=== PATIENT | female | born 1935 | race Caucasian/White ===

== ENCOUNTER → 2018-01-17 08:20 | Outpatient (CLI) | payer MEDICARE, OTHER, SELFPAY ==
[2018-01-17 09:54] LABS: Add Manual Diff / Slide Review NO; Basophils Percent Auto 0.9 % (0-2); Eosinophils Percent Auto 9.4 % (2-4); Hematocrit 38.3 % (36-46); Hemoglobin 12.8 g/dL (12.0-16.0); Lymphocytes Percent Auto 22.2 % (25-40); Mean Corpuscular HGB Conc 33.5 % (30-36); Mean Corpuscular Hemoglobin 27.8 PG (26-34); Monocytes Percent Auto 9.2 % (3-14); Neutrophils Absolute Auto 5300 /uL (3000-5900); Neutrophils Percent Auto 58.3 % (50-75); Platelet Count 311 X10^3/uL (150-400); Red Blood Cell Count 4.61 X10^6/uL (4.0-5.2); Red Cell Distribution Width 16.9 % (11.6-14.8); White Blood Cell Count 9.2 X10^3/uL (4.5-11.0)
[2018-01-17 10:16] LABS: Alanine Aminotransferase 24 IU/L (9-52); Albumin 4.2 g/dL (3.5-5.0); Albumin Globulin Ratio 1.6 (1.0-2.8); Alkaline Phosphatase 45 U/L (38-126); Aspartate Aminotransferase 20 IU/L (14-36); BUN Creatinine Ratio 24.5 (6-22); Bilirubin Total 0.5 mg/dL (0.2-1.3); Blood Urea Nitrogen 27 mg/dL (7-17); Calcium 10.3 mg/dL (8.4-10.2); Carbon Dioxide 31 mmol/L (22-32); Chloride 101 mmol/L (98-107); Cholesterol 165 mg/dL (140-199); Estimated Glomerular Filt Rate 47.8 mL/min (>60); Globulin 2.7 g/dL (1.7-4.1); Glucose 90 mg/dL (80-110); HDL Cholesterol 74 mg/dL (40-60); HEMOLYSIS < 15 (0-50); LDL Cholesterol Calculated 72 mg/dL (<100); Potassium 4.8 mmol/L (3.4-5.1); Sodium 142 mmol/L (137-145); Total Protein 6.9 g/dL (6.3-8.2); Triglycerides 94 mg/dL (35-150)
== END ==
PROVIDERS: PCP Family Medicine; Visit Provider Family Medicine
DX: I10 Essential (primary) hypertension (principal); E78.2 Mixed hyperlipidemia
CPT/HCPCS: 36415; 80053; 80061; 85025

== ENCOUNTER 2018-04-06 13:45 | Outpatient (RCR) | payer MEDICARE, OTHER, SELFPAY ==
--- NOTE | 2017-12-15 10:05 | PT.OTN ---
Current Diagnoses Pain in right knee (12/15/17) Difficulty in walking, not elsewhere classified (12/15/17) Weakness (12/15/17) Presence of right artificial knee joint (12/15/17) On December 14, 2017 our therapy services consisting of Speech, Occupational, and Physical therapy transitioned from [employer] electronic documentation system to a new [employer] electronic system. All documentation prior to December 14 can be found under [employer] saved data. From December 14 forward, all medical record documentation will be in [email or web address].
--- NOTE | 2017-12-17 15:44 | PT.OTN ---
Current Diagnoses Pain in right knee (12/17/17) Difficulty in walking, not elsewhere classified (12/17/17) Weakness (12/17/17) Presence of right artificial knee joint (12/17/17) Physical Therapy Treatment Note PT-OP-A Visit Information Start: 12/15/17 10:15 Freq: Status: Active Protocol: Activity Type Activity Date Activity User E-Sign Co-Sign Detail Recorded Client Recorded Date Recorded By Document 12/17/17 11:20 GGD [email or web address] 12/17/17 15:44 GGD 12/17/17 11:20 Out-Patient Physical Therapy Visit Information [Visit Information] -Visit Type Treatment Note -Visit Start Time 11:20 -Visit Stop Time 12:00 -Total Visit Minutes 40 -Visit Number 18; 2/10 g-code -Number of NUTRITION COUNSELOR Visits 2 [Evaluation Information] -Evaluation Date 09/02/17 PT-OP-C Subjective Start: 12/15/17 10:15 Freq: Status: Active Protocol: Activity Type Activity Date Activity User E-Sign Co-Sign Detail Recorded Client Recorded Date Recorded By Document 12/17/17 11:20 GGD [email or web address] 12/17/17 15:44 GGD 12/17/17 11:20 OP-PT Subjective [Patient Comments] -Patient Comments Pt states that balance is improving, her knee aches at times. PT-OP-Q Treatments Start: 12/15/17 10:15 Freq: Status: Active Protocol: Activity Type Activity Date Activity User E-Sign Co-Sign Detail Recorded Client Recorded Date Recorded By Document 12/17/17 11:20 GGD [email or web address] 12/17/17 15:44 GGD 12/17/17 11:20 Cardio Equipment [Recumbent Stepper (Sci-Fit)] -Duration (Minutes) 10 -Resistance 2.5 Gym Equipment [Shuttle Recovery] Unilateral Squats -Resistance L 62#, R 503 -Shuttle Recovery Platform Stable -Reps/Time L 20, R 2 x10 Bilateral Squats -Resistance 87 -Shuttle Recovery Platform Stable -Reps/Time 20 [Shuttle Rebound] 1 -Exercise Details Red -Reps/Duration 8 -Comments Wide base, staggered stance Manual Therapy Treatment [Taping] 1 -Body Location right knee -Treatment Focus 2 Y strips for stabilization -Type of Tape Kinesio Tape PT-OP-T Assessment and Plan Start: 12/15/17 10:15 Freq: Status: Active Protocol: Activity Type Activity Date Activity User E-Sign Co-Sign Detail Recorded Client Recorded Date Recorded By Document 12/17/17 11:20 GGD [email or web address] 12/17/17 15:44 GGD 12/17/17 11:20 Physical Therapy Assessment [Assessment Summary] -Assessment Pt fatigued quickly with strengthening and balance. She been walking with 4WW and feels more stable. Physical Therapy Plan [Frequency and Duration] -Frequency of Treatment 2x/Week -Duration of Treatment 2 months -Plan of Care Start Date 12/01/17 -Plan of Care End Date 01/30/18 [Next Visit Focus/Plan] -Next Visit Plan Progress under current plan. Increase LE strengthening.
--- NOTE | 2017-12-24 12:28 | PT.OTN ---
Current Diagnoses Pain in right knee (12/24/17) Difficulty in walking, not elsewhere classified (12/24/17) Weakness (12/24/17) Presence of right artificial knee joint (12/24/17) Physical Therapy Treatment Note PT-OP-A Visit Information Start: 12/15/17 10:15 Freq: Status: Active Protocol: Document 12/24/17 12:00 GGD (Rec: 12/24/17 12:27 GGD [email or web address]) Out-Patient Physical Therapy Visit Information Visit Information Visit Type Treatment Note Visit Start Time 11:20 Visit Stop Time 12:00 Total Visit Minutes 40 Visit Number 19; 3/10 g-code Number of BELT BUILDER Visits 3 Evaluation Information Evaluation Date 09/02/17 PT-OP-C Subjective Start: 12/15/17 10:15 Freq: Status: Active Protocol: Document 12/24/17 12:00 GGD (Rec: 12/24/17 12:27 GGD [email or web address]) OP-PT Subjective Patient Comments Patient Comments Pt states she tired, that she has not had energy all week. She doesn't want to do any balance today. PT-OP-Q Treatments Start: 12/15/17 10:15 Freq: Status: Active Protocol: Document 12/24/17 12:00 GGD (Rec: 12/24/17 12:27 GGD [email or web address]) Cardio Equipment Recumbent Stepper (Sci-Fit) Duration (Minutes) 10 Resistance 2.5 Gym Equipment Shuttle Recovery Unilateral Squats Resistance L 62#, R 50# Shuttle Recovery Platform Stable Reps/Time L 20, R 2 x10 Bilateral Squats Resistance 87 Shuttle Recovery Platform Stable Reps/Time 20 Manual Therapy Treatment Taping 1 Body Location right knee Treatment Focus 2 Y strips for stabilization Type of Tape Kinesio Tape PT-OP-R Modalities Start: 12/15/17 10:15 Freq: Status: Active Protocol: Document 12/24/17 12:00 GGD (Rec: 12/24/17 12:28 GGD [email or web address]) Hot Pack/Cold Pack Treatment Cold Pack Location right knee Patient Position Hooklying Patient Tolerance Good PT-OP-T Assessment and Plan Start: 12/15/17 10:15 Freq: Status: Active Protocol: Document 12/24/17 12:00 GGD (Rec: 12/24/17 12:27 GGD [email or web address]) Physical Therapy Assessment Assessment Summary Assessment Pt had improved tolerance to shuttle. Pt refused all balance activities. Treatment was shorten due to pt late. Physical Therapy Plan Frequency and Duration Frequency of Treatment 2x/Week Duration of Treatment 2 months Plan of Care Start Date 12/01/17 Plan of Care End Date 01/30/18 Next Visit Focus/Plan Next Visit Plan Progress under current plan. Increase LE strengthening and balance.
--- NOTE | 2018-01-04 13:58 | PT.OTN ---
Current Diagnoses Pain in left shoulder (01/04/18) Pain in right knee (01/04/18) Difficulty in walking, not elsewhere classified (01/04/18) Weakness (01/04/18) Presence of right artificial knee joint (01/04/18) Physical Therapy Treatment Note PT-OP-A Visit Information Start: 12/15/17 10:15 Freq: Status: Active Protocol: Document 01/04/18 11:21 SAK (Rec: 01/04/18 13:33 [facility] [id number]) Out-Patient Physical Therapy Visit Information Visit Information Visit Type Treatment Note Visit Start Time 11:21 Visit Stop Time 12:01 Total Visit Minutes 40 Visit Number 19 Number of MANAGEMENT ASSISTANT Visits 0 Evaluation Information Evaluation Date 09/02/17 PT-OP-B Current Condition Start: 01/04/18 11:27 Freq: Status: Active Protocol: Document 01/04/18 11:27 SAK (Rec: 01/04/18 12:03 [facility] [id number]) Current Condition History of Current Condition Onset Date chronic History of Current Condition injection in left shoulder yesterday. Long history bilateral shoulder pain Prior Treatments and Tests x-rays show arthritis PT-OP-C Subjective Start: 12/15/17 10:15 Freq: Status: Active Protocol: Document 01/04/18 11:21 SAK (Rec: 01/04/18 11:27 [facility] [id number]) OP-PT Subjective Patient Comments Patient Comments Patient reports some medication changes have caused her to not feel well; off estrogen, using topical Voltaren for right knee, increase Gabapentin, started Cimbalta, new medication for breathing. Had injection left shoulder yesterday. Has new prescription for evaluation and treatment of impingement bilateral shoulders though patient reports left shoulder much worse OP-PT Pain Assessment Pain Assessment Grid Paper Pain Assessment Grid Completed Yes Location Left Upper Lateral Shoulder Pain Location Details chronic Intensity 4 Description Aching Pinching Shooting Frequency Constant Pain Aggravating Factors Position ADL's Activity Lifting Pain Alleviating Factors None Home Pain Medication Use Pain Medications Used Yes Pain Behaviors Pain Behaviors Facial Grimacing Guarding Wincing Comments Pain Comments pain is chronic, but recent left shoulder worsening with no known reason PT-OP-F Manual Assessment Start: 01/04/18 13:24 Freq: Status: Active Protocol: Document 01/04/18 11:21 SAK (Rec: 01/04/18 13:40 [facility] [id number]) Manual Assessments Soft Tissue Assessment Soft Tissue Mobility Assessment Increased muscle bulk and tightness left upper trap and levator scapulae Joint Mobility Assessment Joint Mobility Assessment decreased posterior and inferior glide left GH joint PT-OP-K Range of Motion Start: 01/04/18 13:24 Freq: Status: Active Protocol: Document 01/04/18 11:21 [facility] (Rec: 01/04/18 13:43 [facility] [id number]) Cervical Spine Range of Motion Cervical Spine Active Comments mod decrease all c/s motions Shoulder Goniometric Range of Motion Shoulder Measured in Degrees Right Active Shoulder ROM WFL Yes Testing Position Sitting Left Active Shoulder ROM WFL No Testing Position Sitting Flexion 127 Extension 15 Abduction 112 External Rotation at 45 degrees 22 Abduction Internal Rotation Behind Back (text) T8 Shoulder ROM Limitations Shoulder ROM Limitations Bony Restriction Pain PT-OP-L Special Tests Start: 01/04/18 13:24 Freq: Status: Active Protocol: Document 01/04/18 11:21 [facility] (Rec: 01/04/18 13:44 [facility] [id number]) Special Tests Shoulder Special Tests Elevation Impingement Test Results positive left Belly Press Test Results negative PT-OP-M Strength Start: 01/04/18 13:24 Freq: Status: Active Protocol: Document 01/04/18 11:21 [facility] (Rec: 01/04/18 13:45 [facility] [id number]) Shoulder Strength Shoulder Manual Muscle Testing Left Flexion 3- Fair- Extension 3+ Fair+ External Rotation 3+ Fair+ Internal Rotation 4- Good- Reason Not Measured Pain Right Flexion 4+ Good+ Extension 4+ Good+ Abduction (C5) 4+ Good+ External Rotation 4 Good Internal Rotation 4+ Good+ PT-OP-Q Treatments Start: 12/15/17 10:15 Freq: Status: Active Protocol: Document 01/04/18 11:21 [facility] (Rec: 01/04/18 13:48 [facility] [id number]) Cardio Equipment Recumbent Stepper (Sci-Fit) Duration (Minutes) 10 Resistance 2.5 Therapeutic Exercises Supine Exercises 1 Supine Exercise Name SAQ Equipment Used bolster Reps/Minutes 10x Other Exercises 1 Other Exercise Name row, shld ext, shld ER Resistance L2 TB Reps/Minutes 5x Comments verbal and manual cues Manual Therapy Treatment Manual Techniques 1 Type left shoulder assessment Comments ROM, strength, joint mobility Self-Care/Home Management Treatment Education Patient Education Home Exercise Program Activities Self-Care/Home Management Activities emphasis on posture PT-OP-R Modalities Start: 12/15/17 10:15 Freq: Status: Active Protocol: Document 12/24/17 12:00 GGD (Rec: 12/24/17 12:28 GGD [email or web address]) Hot Pack/Cold Pack Treatment Cold Pack Location right knee Patient Position Hooklying Patient Tolerance Good PT-OP-T Assessment and Plan Start: 12/15/17 10:15 Freq: Status: Active Protocol: Document 01/04/18 11:21 SAK (Rec: 01/04/18 13:56 SAK [id number]) Physical Therapy Assessment Rehab Potential Rehabilitation Potential Good Evaluation Complexity Number of Personal Factors/Comorbidities 3 or More Number of Body Systems Impaired 3 Clinical Presentation at Evaluation Evolving Impairments Impairments Functional Activities Pain Posture ROM Strength Goals Eight Impairment weakness left shoulder Wildlife Rehabilitator Goal (LTG) Patient left UE strength at least 4+/5 LTG Duration 6 wks Seven Impairment activity tolerance Wildlife Rehabilitator Goal (LTG) Patient able to reach overhead and behind her back with minimal to no pain for purposes of ADL's and usual activities LTG Duration 6 wks Progress Towards Goals Progress Towards Goals Slow Progress due to Medical Issues Progress Comments Slow but steady progress with right knee. Medical issues have complicated recovery. Patient also has had a recent exacerbation of left shoulder pain with signs and symptoms of impingment. Should benefit from PT for continued treatment right knee as well as treatment of left shoulder pain and dysfunction. Physical Therapy Plan Frequency and Duration Frequency of Treatment 2x/Week Plan of Care Start Date 11/30/17 Plan of Care End Date 01/28/18 Therapeutic Interventions Therapeutic Interventions Aquatic Therapy Home Exercise Program Manual Therapy Patient/Caregiver Education Self-Care/Home Management Therapeutic Activities Therapeutic Exercises Modalities Cold Pack/Ice Massage Electric Stimulation Hot Packs Ultrasound Next Visit Focus/Plan Next Visit Plan Initiate aquatic therapy, address both shoulder and knee pain and dysfunction. Re- certification note Please Sign and Return: I have reviewed this Plan of Care and certify that the skilled therapy services above are required to meet the patient???s needs. Physician Signature Date Printed Name and Credentials Clinical Instructor Signature Printed Name and Credentials
--- NOTE | 2018-01-12 08:41 | PT.OTN ---
Current Diagnoses Pain in right knee (01/11/18) Difficulty in walking, not elsewhere classified (01/11/18) Weakness (01/11/18) Presence of right artificial knee joint (01/11/18) Physical Therapy Treatment Note PT-OP-A Visit Information Start: 12/15/17 10:15 Freq: Status: Active Protocol: Document 01/11/18 11:20 SAK (Rec: 01/11/18 12:02 SAK [id number]) Out-Patient Physical Therapy Visit Information Visit Information Visit Type Treatment Note Visit Start Time 11:21 Visit Stop Time 12:24 Total Visit Minutes 63 Visit Number 20 Number of REGIONAL LOSS PREVENTION MANAGER Visits 0 Evaluation Information Evaluation Date 09/02/17 PT-OP-B Current Condition Start: 01/04/18 11:27 Freq: Status: Active Protocol: Document 01/04/18 11:27 SAK (Rec: 01/04/18 12:03 SAK [id number]) Current Condition History of Current Condition Onset Date chronic History of Current Condition injection in left shoulder yesterday. Long history bilateral shoulder pain Prior Treatments and Tests x-rays show arthritis PT-OP-C Subjective Start: 12/15/17 10:15 Freq: Status: Active Protocol: Document 01/11/18 11:20 SAK (Rec: 01/11/18 12:02 SAK [id number]) OP-PT Subjective Patient Comments Patient Comments Shoulder a little better. Used the theraband, no ice or heat. Using topical anagesic instead of pain medications per physician. PT-OP-F Manual Assessment Start: 01/04/18 13:24 Freq: Status: Active Protocol: Document 01/04/18 11:21 SAK (Rec: 01/04/18 13:40 SAK [id number]) Manual Assessments Soft Tissue Assessment Soft Tissue Mobility Assessment Increased muscle bulk and tightness left upper trap and levator scapulae Joint Mobility Assessment Joint Mobility Assessment decreased posterior and inferior glide left GH joint PT-OP-K Range of Motion Start: 01/04/18 13:24 Freq: Status: Active Protocol: Document 01/04/18 11:21 SAK (Rec: 01/04/18 13:43 SAK [id number]) Cervical Spine Range of Motion Cervical Spine Active Comments mod decrease all c/s motions Shoulder Goniometric Range of Motion Shoulder Measured in Degrees Right Active Shoulder ROM WFL Yes Testing Position Sitting Left Active Shoulder ROM WFL No Testing Position Sitting Flexion 127 Extension 15 Abduction 112 External Rotation at 45 degrees 22 Abduction Internal Rotation Behind Back (text) T8 Shoulder ROM Limitations Shoulder ROM Limitations Bony Restriction Pain PT-OP-L Special Tests Start: 01/04/18 13:24 Freq: Status: Active Protocol: Document 01/04/18 11:21 [facility] (Rec: 01/04/18 13:44 [facility] [id number]) Special Tests Shoulder Special Tests Elevation Impingement Test Results positive left Belly Press Test Results negative PT-OP-M Strength Start: 01/04/18 13:24 Freq: Status: Active Protocol: Document 01/04/18 11:21 [facility] (Rec: 01/04/18 13:45 [facility] [id number]) Shoulder Strength Shoulder Manual Muscle Testing Left Flexion 3- Fair- Extension 3+ Fair+ External Rotation 3+ Fair+ Internal Rotation 4- Good- Reason Not Measured Pain Right Flexion 4+ Good+ Extension 4+ Good+ Abduction (C5) 4+ Good+ External Rotation 4 Good Internal Rotation 4+ Good+ PT-OP-Q Treatments Start: 12/15/17 10:15 Freq: Status: Active Protocol: Document 01/11/18 11:20 [facility] (Rec: 01/11/18 12:02 [facility] [id number]) Cardio Equipment Recumbent Stepper (Sci-Fit) Duration (Minutes) 10 Resistance 2.5 Other LE's only Therapeutic Exercises Supine Exercises 2 Supine Exercise Name AAROM shoulder ER Side left Reps/Minutes 2 min 1 Supine Exercise Name SAQ Equipment Used bolster Reps/Minutes 10x Sitting Exercises 2 Sitting Exercise Name UT stretch Reps/Minutes 2 1 Sitting Exercise Name pulleys shoulder flex, abd Reps/Minutes 10x ea Other Exercises 1 Other Exercise Name row, shld ext, shld ER Resistance L1 TB Reps/Minutes 5x Comments verbal and manual cues Manual Therapy Treatment Manual Techniques 2 Type DTM left UT, GH joint region Body Position hooklying PT-OP-R Modalities Start: 12/15/17 10:15 Freq: Status: Active Protocol: Document 01/11/18 11:20 [facility] (Rec: 01/12/18 08:31 SAK [id number]) Hot Pack/Cold Pack Treatment Hot Pack Location left shoulder Patient Position Hooklying Treatment Duration (minutes) 15 Ultrasound Therapy Treatment Left Shoulder Treatment Duration (minutes) 8 Patient Position Supine Frequency Setting (mHz) 1 Mode Setting Continuous Intensity Setting (w/cm2) 1.3 Patient Tolerance Good PT-OP-T Assessment and Plan Start: 12/15/17 10:15 Freq: Status: Active Protocol: Document 01/11/18 11:20 YESSENIA (Rec: 01/12/18 08:33 [facility] [id number]) Physical Therapy Assessment Assessment Summary Assessment Reporting small decrease in left shoulder pain, states knee feeling pretty good, wants focus on left shoulder. Barrett UE ex well today. Physical Therapy Plan Frequency and Duration Frequency of Treatment 2x/Week Plan of Care Start Date 11/30/17 Plan of Care End Date 01/28/18 Therapeutic Interventions Therapeutic Interventions Aquatic Therapy Home Exercise Program Manual Therapy Patient/Caregiver Education Self-Care/Home Management Therapeutic Activities Therapeutic Exercises Modalities Cold Pack/Ice Massage Electric Stimulation Hot Packs Ultrasound Next Visit Focus/Plan Next Note Type Re-Evaluation Next Visit Plan Initiate aquatic therapy, address both shoulder and knee pain and dysfunction. Re- certification note Please Sign and Return: I have reviewed this Plan of Care and certify that the skilled therapy services above are required to meet the patient???s needs. Physician Signature Date Printed Name and Credentials Clinical Instructor Signature Printed Name and Credentials
--- NOTE | 2018-01-21 14:14 | PT.OTN ---
Current Diagnoses Pain in right knee (01/21/18) Difficulty in walking, not elsewhere classified (01/21/18) Weakness (01/21/18) Presence of right artificial knee joint (01/21/18) Physical Therapy Treatment Note PT-OP-A Visit Information Start: 12/15/17 10:15 Freq: Status: Active Protocol: Document 01/21/18 10:15 GGD (Rec: 01/21/18 14:14 GGD [email or web address]) Out-Patient Physical Therapy Visit Information Visit Information Visit Type Treatment Note Visit Start Time 11:15 Visit Stop Time 12:05 Total Visit Minutes 50 Visit Number 21 08/25 g code Evaluation Information Evaluation Date 09/02/17 PT-OP-B Current Condition Start: 01/04/18 11:27 Freq: Status: Active Protocol: PT-OP-C Subjective Start: 12/15/17 10:15 Freq: Status: Active Protocol: Document 01/21/18 10:15 GGD (Rec: 01/21/18 14:14 GGD [email or web address]) OP-PT Subjective Patient Comments Patient Comments Pt states that she feels stronger and is less fatigued. Document 01/21/18 10:15 GGD (Rec: 01/21/18 14:14 GGD [email or web address]) Cardio Equipment Recumbent Stepper (Sci-Fit) Duration (Minutes) 10 Resistance 3 Other LE's only Gym Equipment Shuttle Recovery Unilateral Squats Resistance L 62#, R 50# Shuttle Recovery Platform Stable Reps/Time L 20, R 2 x10 Bilateral Squats Resistance 87 Shuttle Recovery Platform Stable Reps/Time 20 Shuttle Rebound 1 Exercise Details Red Reps/Duration 8 Comments Wide base, NBOS, staggered stance Therapeutic Exercises Supine Exercises 3 Supine Exercise Name SLR Reps/Minutes 2 x 10 1 Supine Exercise Name SAQ Equipment Used bolster Reps/Minutes 10x PT-OP-R Modalities Start: 12/15/17 10:15 Freq: Status: Active Protocol: Document 01/21/18 10:15 GGD (Rec: 01/21/18 14:14 GGD [email or web address]) Hot Pack/Cold Pack Treatment Hot Pack Location left shoulder Patient Position Hooklying Treatment Duration (minutes) 15 Cold Pack Location right knee Patient Position Hooklying Patient Tolerance Good PT-OP-T Assessment and Plan Start: 12/15/17 10:15 Freq: Status: Active Protocol: Document 01/21/18 10:15 LUIS (Rec: 01/21/18 14:14 LUIS [email or web address]) Physical Therapy Assessment Assessment Summary Assessment Pt improving with balance and strength, but did have knee pain when trying to increase strengthening. Physical Therapy Plan Frequency and Duration Frequency of Treatment 2x/Week Plan of Care Start Date 11/30/17 Plan of Care End Date 01/28/18 Next Visit Focus/Plan Next Note Type Re-Evaluation Next Visit Plan Initiate aquatic therapy and progress strengthening
--- NOTE | 2018-02-17 16:11 | PT.OTRE ---
Current Diagnoses Pain in left shoulder (02/17/18) Pain in right knee (02/17/18) Difficulty in walking, not elsewhere classified (02/17/18) Weakness (02/17/18) Presence of right artificial knee joint (02/17/18) Surgical History (Last Reviewed 12/21/17 @ 14:57 by Barbra Galvan PT) History of aortic valve replacement History of hip replacement History of knee replacement History of knee replacement Status post hysterectomy Provider Visit Care Team Role Provider Type Raoul Villalobos MD Attending Provider Non-Staff Specialty: Medical Address: [address] [place] [address] Email: Physical Therapy Re-Evaluation PT-OP-A Visit Information Start: 12/15/17 10:15 Freq: Status: Active Protocol: Document 02/17/18 14:35 SAK (Rec: 02/17/18 16:[address] [facility] [id number]) Out-Patient Physical Therapy Visit Information Visit Information Visit Type Treatment Note Total Visit Minutes 60 Visit Number 22 Number of SLINGER SEQUINS Visits 0 Evaluation Information Evaluation Date 09/02/17 PT-OP-B Current Condition Start: 01/04/18 11:27 Freq: Status: Active Protocol: Document 01/04/18 11:27 SAK (Rec: 01/04/18 12:[address] [facility] [id number]) Current Condition History of Current Condition Onset Date chronic History of Current Condition injection in left shoulder yesterday. Long history bilateral shoulder pain Prior Treatments and Tests x-rays show arthritis PT-OP-C Subjective Start: 12/15/17 10:15 Freq: Status: Active Protocol: Document 02/17/18 14:35 SAK (Rec: 02/17/18 16:[address] [facility] [id number]) OP-PT Subjective Patient Comments Patient Comments Reports recent medication changes due to concerns over pain medication effect on kidney function; discontinued oral Voltarin (now using topical), increased dose of Gabapentin, and added Cymbalta . Overall reports an increase in her arthritis pain throughout her body and states a couple days ago she swept her kitchen and for a couple days her back pain increased so much she couldn't get OOB. Patient Reported Progress Worse OP-PT Pain Assessment Location Left Upper Lateral Shoulder Pain Location Details chronic Intensity 6 Description Aching Pinching Shooting Frequency Constant Pain Aggravating Factors Position ADL's Activity Lifting Pain Alleviating Factors None Home Pain Medication Use Pain Medications Used Yes Pain Behaviors Pain Behaviors Facial Grimacing Guarding Wincing Comments Pain Comments see above PT-OP-F Manual Assessment Start: 01/04/18 13:24 Freq: Status: Active Protocol: Document 01/04/18 11:[address] [facility] (Rec: 01/04/18 13:[address] [facility] [id number]) Manual Assessments Soft Tissue Assessment Soft Tissue Mobility Assessment Increased muscle bulk and tightness left upper trap and levator scapulae Joint Mobility Assessment Joint Mobility Assessment decreased posterior and inferior glide left GH joint PT-OP-K Range of Motion Start: 01/04/18 13:24 Freq: Status: Active Protocol: Document 02/17/18 14:[address] [facility] (Rec: 02/17/18 16:[address] [facility] [id number]) Shoulder Goniometric Range of Motion Shoulder Measured in Degrees Left Active Shoulder ROM WFL No Testing Position Sitting Flexion 125 Extension 12 Abduction 100 External Rotation at 45 degrees 24 Abduction Internal Rotation Behind Back (text) T8 Shoulder ROM Limitations Shoulder ROM Limitations Bony Restriction Pain PT-OP-L Special Tests Start: 01/04/18 13:24 Freq: Status: Active Protocol: Document 02/17/18 14:[address] [facility] (Rec: 02/17/18 16:[address] [facility] [id number]) Special Tests Shoulder Special Tests Elevation Impingement Test Results positive bilaterally PT-OP-M Strength Start: 01/04/18 13:24 Freq: Status: Active Protocol: Document 02/17/18 14:[address] [facility] (Rec: 02/17/18 16:[address] [facility] [id number]) Shoulder Strength Shoulder Manual Muscle Testing Left Comments no significant change PT-OP-Q Treatments Start: 12/15/17 10:15 Freq: Status: Active Protocol: Document 02/17/18 14:[address] [facility] (Rec: 02/17/18 16:[address] [facility] [id number]) Cardio Equipment Recumbent Stepper (Sci-Fit) Duration (Minutes) 10 Resistance 3 Other LE's only Gym Equipment Shuttle Recovery Bilateral Squats Resistance 75 Shuttle Recovery Platform Stable Reps/Time 20 Therapeutic Exercises Supine Exercises 1 Supine Exercise Name SAQ Equipment Used bolster Reps/Minutes 10x2 Sitting Exercises 2 Sitting Exercise Name UT stretch Reps/Minutes 2 1 Sitting Exercise Name pulleys shoulder flex, abd Reps/Minutes 10x ea Other Exercises 1 Other Exercise Name row, shld ext, shld ER Resistance L1 TB Reps/Minutes 5x Comments verbal and manual cues Manual Therapy Treatment Manual Techniques 2 Type DTM left UT, GH joint region Body Position hooklying Self-Care/Home Management Treatment Education Other Education review HEP, use of heat PT-OP-R Modalities Start: 12/15/17 10:15 Freq: Status: Active Protocol: Document 02/17/18 14:[address] [facility] (Rec: 02/17/18 16:[address] [facility] [id number]) Electric Stimulation Electric Stimulation Interferential Current (IFC) Body Location left shoulder Duration (Minutes) 15 Target/Sweep Sweep Patient Position Hooklying Combined With Heat/Cold Hot Pack Ultrasound Therapy Treatment Left Shoulder Treatment Duration (minutes) 8 Patient Position Supine Frequency Setting (mHz) 1 Mode Setting Continuous Intensity Setting (w/cm2) 1.3 PT-OP-T Assessment and Plan Start: 12/15/17 10:15 Freq: Status: Active Protocol: Document 02/17/18 14:[address] [facility] (Rec: 02/17/18 16:[address] [facility] [id number]) Physical Therapy Assessment Rehab Potential Rehabilitation Potential Fair Evaluation Complexity Number of Personal Factors/Comorbidities 3 or More Number of Body Systems Impaired 3 Clinical Presentation at Evaluation Evolving Impairments Impairments Activity Tolerance Functional Mobility Gait Pain Posture ROM Soft Tissue Mobility Strength Other Concerns Barriers to Rehabilitation chronicity of condition low activity tolerance, SOB kidney dysfunction Goals Four Impairment weakness Adzing And Boring Machine Feeder Goal (LTG) Increase strength right knee and left shoulder to 4+/5 Three Impairment Gait Care Home Goal (LTG) Patient able to ambulate with appropriate assistive device without limp LTG Duration 2 months Two Impairment Patient education Care Home Goal (LTG) patient to be safe and compliant with HEP and aquatic exercise program for strengthening, ROM, pain management of right knee and left shoulder. LTG Duration 2 months One Impairment right knee pain Adzing And Boring Machine Feeder Goal (LTG) Decrease right knee pain to 2- 3/10 LTG Duration 2 months Eight Impairment weakness left shoulder Care Home Goal (LTG) Patient left UE strength at least 4+/5 LTG Duration 6 wks Seven Impairment activity tolerance Adzing And Boring Machine Feeder Goal (LTG) Patient able to reach overhead and behind her back with minimal to no pain for purposes of ADL's and usual activities LTG Duration 6 wks Progress Towards Goals Progress Comments No progress since seen by this PT last 01/11/18, due to PT vacation and illness, patient only seen one time since then (01/21/18) until today. Decline in status and function noted as a result Assessment Summary Assessment Would benefit from further PT and feel aquatic PT most appropriate due to multiple areas of pain, patient weight, prior benefit. Physical Therapy Plan Frequency and Duration Frequency of Treatment 2x/Week Plan of Care Start Date 02/17/18 Plan of Care End Date 04/20/18 Therapeutic Interventions Therapeutic Interventions Aquatic Therapy Home Exercise Program Manual Therapy Patient/Caregiver Education Self-Care/Home Management Therapeutic Activities Therapeutic Exercises Modalities Cold Pack/Ice Massage Electric Stimulation Hot Packs Ultrasound Next Visit Focus/Plan Next Note Type Treatment Note Next Visit Plan Initiate aquatic therapy and progress strengthening
--- NOTE | 2018-02-17 16:13 | PT.OPPOC ---
Current Diagnoses Pain in left shoulder (02/17/18) Pain in right knee (02/17/18) Difficulty in walking, not elsewhere classified (02/17/18) Weakness (02/17/18) Presence of right artificial knee joint (02/17/18) Provider Visit Care Team Role Provider Type Raoul Villalobos MD Attending Provider Non-Staff Specialty: Medical Address: [address] [place] [address], [facility] Email: Plan Of Care PT-OP-T Assessment and Plan Start: 12/15/17 10:15 Freq: Status: Active Protocol: Document 02/17/18 14:35 SAK (Rec: 02/17/18 16:01 [facility]AK [id number]) Physical Therapy Assessment Rehab Potential Rehabilitation Potential Fair Evaluation Complexity Number of Personal Factors/Comorbidities 3 or More Number of Body Systems Impaired 3 Clinical Presentation at Evaluation Evolving Impairments Impairments Activity Tolerance Functional Mobility Gait Pain Posture ROM Soft Tissue Mobility Strength Other Concerns Barriers to Rehabilitation chronicity of condition low activity tolerance, SOB kidney dysfunction Goals Four Impairment weakness Anchorman Goal (LTG) Increase strength right knee and left shoulder to 4+/5 Three Impairment Gait Correction Goal (LTG) Patient able to ambulate with appropriate assistive device without limp LTG Duration 2 months Two Impairment Patient education Correction Goal (LTG) patient to be safe and compliant with HEP and aquatic exercise program for strengthening, ROM, pain management of right knee and left shoulder. LTG Duration 2 months One Impairment right knee pain Anchorman Goal (LTG) Decrease right knee pain to 2- 3/10 LTG Duration 2 months Eight Impairment weakness left shoulder Correction Goal (LTG) Patient left UE strength at least 4+/5 LTG Duration 6 wks Seven Impairment activity tolerance Anchorman Goal (LTG) Patient able to reach overhead and behind her back with minimal to no pain for purposes of ADL's and usual activities LTG Duration 6 wks Progress Towards Goals Progress Comments No progress since seen by this PT last 01/11/18, due to PT vacation and illness, patient only seen one time since then (01/21/18) until today. Decline in status and function noted as a result Assessment Summary Assessment Would benefit from further PT and feel aquatic PT most appropriate due to multiple areas of pain, patient weight, prior benefit. Physical Therapy Plan Frequency and Duration Frequency of Treatment 2x/Week Plan of Care Start Date 02/17/18 Plan of Care End Date 04/20/18 Therapeutic Interventions Therapeutic Interventions Aquatic Therapy Home Exercise Program Manual Therapy Patient/Caregiver Education Self-Care/Home Management Therapeutic Activities Therapeutic Exercises Modalities Cold Pack/Ice Massage Electric Stimulation Hot Packs Ultrasound Next Visit Focus/Plan Next Note Type Treatment Note Next Visit Plan Initiate aquatic therapy and progress strengthening Plan of Care Dates Plan of Care Start Date 02/17/18 Plan of Care End Date 04/20/18 Please Sign and Return: I have reviewed this Plan of Care and certify that the skilled therapy services above are required to meet the patient?s needs. Physician Signature Date Printed Name and Credentials Clinical Instructor Signature Printed Name and Credentials
--- NOTE | 2018-02-21 13:45 | PT.OTN ---
Current Diagnoses Pain in right knee (02/21/18) Difficulty in walking, not elsewhere classified (02/21/18) Weakness (02/21/18) Presence of right artificial knee joint (02/21/18) Physical Therapy Treatment Note PT-OP-A Visit Information Start: 12/15/17 10:15 Freq: Status: Active Protocol: Document 02/21/18 13:45 TMS (Rec: 02/21/18 15:56 TMS [id number]) Out-Patient Physical Therapy Visit Information Visit Information Visit Type Treatment Note Visit Start Time 13:00 Visit Stop Time 13:45 Total Visit Minutes 45 Visit Number 23 Number of CHILD CARE TEAM LEAD Visits 1 PT-OP-B Current Condition Start: 01/04/18 11:27 Freq: Status: Active Protocol: Document 01/04/18 11:27 SAK (Rec: 01/04/18 12:03 SAK [id number]) Current Condition History of Current Condition Onset Date chronic History of Current Condition injection in left shoulder yesterday. Long history bilateral shoulder pain Prior Treatments and Tests x-rays show arthritis PT-OP-C Subjective Start: 12/15/17 10:15 Freq: Status: Active Protocol: Document 02/21/18 13:45 TMS (Rec: 02/21/18 15:56 TMS [id number]) OP-PT Subjective Patient Comments Patient Comments Pt. states she had a gash on her arm which pervented her from coming to pool for awhile . States she's happy to be back in water. PT-OP-F Manual Assessment Start: 01/04/18 13:24 Freq: Status: Active Protocol: Document 01/04/18 11:21 SAK (Rec: 01/04/18 13:40 SAK [id number]) Manual Assessments Soft Tissue Assessment Soft Tissue Mobility Assessment Increased muscle bulk and tightness left upper trap and levator scapulae Joint Mobility Assessment Joint Mobility Assessment decreased posterior and inferior glide left GH joint PT-OP-K Range of Motion Start: 01/04/18 13:24 Freq: Status: Active Protocol: Document 02/17/18 14:35 SAK (Rec: 02/17/18 16:01 SAK [id number]) Shoulder Goniometric Range of Motion Shoulder Measured in Degrees Left Active Shoulder ROM WFL No Testing Position Sitting Flexion 125 Extension 12 Abduction 100 External Rotation at 45 degrees 24 Abduction Internal Rotation Behind Back (text) T8 Shoulder ROM Limitations Shoulder ROM Limitations Bony Restriction Pain PT-OP-L Special Tests Start: 01/04/18 13:24 Freq: Status: Active Protocol: Document 02/17/18 14:[address] [facility] (Rec: 02/17/18 16:[address] [facility] [id number]) Special Tests Shoulder Special Tests Elevation Impingement Test Results positive bilaterally PT-OP-M Strength Start: 01/04/18 13:24 Freq: Status: Active Protocol: Document 02/17/18 14:[address] [facility] (Rec: 02/17/18 16:[address] [facility] [id number]) Shoulder Strength Shoulder Manual Muscle Testing Left Comments no significant change PT-OP-Q Treatments Start: 12/15/17 10:15 Freq: Status: Active Protocol: Document 02/17/18 14:[address] [facility] (Rec: 02/17/18 16:[address] [facility] [id number]) Cardio Equipment Recumbent Stepper (Sci-Fit) Duration (Minutes) 10 Resistance 3 Other LE's only Gym Equipment Shuttle Recovery Bilateral Squats Resistance 75 Shuttle Recovery Platform Stable Reps/Time 20 Therapeutic Exercises Supine Exercises 1 Supine Exercise Name SAQ Equipment Used bolster Reps/Minutes 10x2 Sitting Exercises 2 Sitting Exercise Name UT stretch Reps/Minutes 2 1 Sitting Exercise Name pulleys shoulder flex, abd Reps/Minutes 10x ea Other Exercises 1 Other Exercise Name row, shld ext, shld ER Resistance L1 TB Reps/Minutes 5x Comments verbal and manual cues Manual Therapy Treatment Manual Techniques 2 Type DTM left UT, GH joint region Body Position hooklying Self-Care/Home Management Treatment Education Other Education review HEP, use of heat PT-OP-R Modalities Start: 12/15/17 10:15 Freq: Status: Active Protocol: Document 02/17/18 14:[address] [facility] (Rec: 02/17/18 16:[address] [facility] [id number]) Electric Stimulation Electric Stimulation Interferential Current (IFC) Body Location left shoulder Duration (Minutes) 15 Target/Sweep Sweep Patient Position Hooklying Combined With Heat/Cold Hot Pack Ultrasound Therapy Treatment Left Shoulder Treatment Duration (minutes) 8 Patient Position Supine Frequency Setting (mHz) 1 Mode Setting Continuous Intensity Setting (w/cm2) 1.3 PT-OP-S Aquatic Treatment Start: 02/21/18 15:43 Freq: Status: Active Protocol: Document 02/21/18 13:45 TMS (Rec: 02/21/18 15:56 TMS [id number]) Aquatics Treatment Pool Entry/Exit Pool Entry/Exit Method Stairs Assistance Independent Water Walking Sideways Water Level Chest Level Comments With gentle AB/AD Forwards Water Level Chest Level Comments With gentle breast stroke motions with arms. Lower Extremity Exercises 4 Details Knee flexion/extension Body Position Standing Water Level Chest Level Reps/Duration x 10 reps 3 Details L.E. circumduction Body Position Standing Water Level Chest Level Reps/Duration x 10 reps 2 Details Hip AB/AD Body Position Standing Water Level Chest Level Reps/Duration x 10 reps 1 Details Hip flex/ext Body Position Standing Water Level Chest Level Reps/Duration x 10 reps Upper Extremity Exercises 3 Details Shoulder IR/ER Body Position Standing Water Level Neck Level 2 Details Shoulder circles Body Position Standing Water Level Neck Level 1 Details Shoulder rolls/shrugs Body Position Standing Water Level Neck Level Spinal Exercises 1 Details U.E. Horiz AB/AD, shoulder flexion Body Position Standing Water Level Chest Level Comments With core stabilization emphasis, bilateral and unilateral PT-OP-T Assessment and Plan Start: 12/15/17 10:15 Freq: Status: Active Protocol: Document 02/21/18 13:45 TMS (Rec: 02/21/18 15:56 TMS [id number]) Physical Therapy Assessment Assessment Summary Assessment Pt. needed many cues for posture in shallow and deep water. No complaints of pain with treatment. Physical Therapy Plan Frequency and Duration Frequency of Treatment 2x/Week Plan of Care Start Date 02/17/18 Plan of Care End Date 04/20/18 Next Visit Focus/Plan Next Note Type Treatment Note Next Visit Plan Continue to progress aquatic exercise as tolerated.
--- NOTE | 2018-02-25 15:58 | PT.OTN ---
Current Diagnoses Pain in right knee (02/25/18) Difficulty in walking, not elsewhere classified (02/25/18) Weakness (02/25/18) Presence of right artificial knee joint (02/25/18) Physical Therapy Treatment Note PT-OP-A Visit Information Start: 12/15/17 10:15 Freq: Status: Active Protocol: Document 02/25/18 15:52 SAK (Rec: 02/25/18 15:57 SAK [id number]) Out-Patient Physical Therapy Visit Information Visit Information Visit Type Treatment Note Visit Start Time 12:30 Visit Stop Time 13:15 Total Visit Minutes 45 Visit Number 24 Number of PHOTOENGRAVER Visits 1 PT-OP-B Current Condition Start: 01/04/18 11:27 Freq: Status: Active Protocol: Document 01/04/18 11:27 SAK (Rec: 01/04/18 12:03 SAK [id number]) Current Condition History of Current Condition Onset Date chronic History of Current Condition injection in left shoulder yesterday. Long history bilateral shoulder pain Prior Treatments and Tests x-rays show arthritis PT-OP-C Subjective Start: 12/15/17 10:15 Freq: Status: Active Protocol: Document 02/25/18 15:52 SAK (Rec: 02/25/18 15:57 [facility] [id number]) OP-PT Subjective Patient Comments Patient Comments felt good after aquatic PT session PT-OP-F Manual Assessment Start: 01/04/18 13:24 Freq: Status: Active Protocol: Document 01/04/18 11:21 SAK (Rec: 01/04/18 13:40 SAK [id number]) Manual Assessments Soft Tissue Assessment Soft Tissue Mobility Assessment Increased muscle bulk and tightness left upper trap and levator scapulae Joint Mobility Assessment Joint Mobility Assessment decreased posterior and inferior glide left GH joint PT-OP-K Range of Motion Start: 01/04/18 13:24 Freq: Status: Active Protocol: Document 02/17/18 14:35 SAK (Rec: 02/17/18 16:01 SAK [id number]) Shoulder Goniometric Range of Motion Shoulder Measured in Degrees Left Active Shoulder ROM WFL No Testing Position Sitting Flexion 125 Extension 12 Abduction 100 External Rotation at 45 degrees 24 Abduction Internal Rotation Behind Back (text) T8 Shoulder ROM Limitations Shoulder ROM Limitations Bony Restriction Pain PT-OP-L Special Tests Start: 01/04/18 13:24 Freq: Status: Active Protocol: Document 02/17/18 14:35 SAK (Rec: 02/17/18 16:01 SAK [id number]) Special Tests Shoulder Special Tests Elevation Impingement Test Results positive bilaterally PT-OP-M Strength Start: 01/04/18 13:24 Freq: Status: Active Protocol: Document 02/17/18 14:35 SAK (Rec: 02/17/18 16:01 SAK [id number]) Shoulder Strength Shoulder Manual Muscle Testing Left Comments no significant change PT-OP-Q Treatments Start: 12/15/17 10:15 Freq: Status: Active Protocol: Document 02/17/18 14:35 SAK (Rec: 02/17/18 16:01 SAK [id number]) Cardio Equipment Recumbent Stepper (Sci-Fit) Duration (Minutes) 10 Resistance 3 Other LE's only Gym Equipment Shuttle Recovery Bilateral Squats Resistance 75 Shuttle Recovery Platform Stable Reps/Time 20 Therapeutic Exercises Supine Exercises 1 Supine Exercise Name SAQ Equipment Used bolster Reps/Minutes 10x2 Sitting Exercises 2 Sitting Exercise Name UT stretch Reps/Minutes 2 1 Sitting Exercise Name pulleys shoulder flex, abd Reps/Minutes 10x ea Other Exercises 1 Other Exercise Name row, shld ext, shld ER Resistance L1 TB Reps/Minutes 5x Comments verbal and manual cues Manual Therapy Treatment Manual Techniques 2 Type DTM left UT, GH joint region Body Position hooklying Self-Care/Home Management Treatment Education Other Education review HEP, use of heat PT-OP-R Modalities Start: 12/15/17 10:15 Freq: Status: Active Protocol: Document 02/17/18 14:35 [facility] (Rec: 02/17/18 16:01 [facility] [id number]) Electric Stimulation Electric Stimulation Interferential Current (IFC) Body Location left shoulder Duration (Minutes) 15 Target/Sweep Sweep Patient Position Hooklying Combined With Heat/Cold Hot Pack Ultrasound Therapy Treatment Left Shoulder Treatment Duration (minutes) 8 Patient Position Supine Frequency Setting (mHz) 1 Mode Setting Continuous Intensity Setting (w/cm2) 1.3 PT-OP-S Aquatic Treatment Start: 02/21/18 15:43 Freq: Status: Active Protocol: Document 02/25/18 15:52 SAK (Rec: 02/25/18 15:57 [facility] [id number]) Aquatics Treatment Pool Entry/Exit Pool Entry/Exit Method Stairs Assistance Independent Water Walking Backwards Water Level Chest Level Comments with gentle reverse breastroke Sideways Water Level Chest Level Comments With gentle AB/AD Forwards Water Level Chest Level Comments With gentle breast stroke motions with arms. Lower Extremity Exercises 4 Details Knee flexion/extension Body Position Standing Water Level Chest Level Reps/Duration x 10 reps 3 Details L.E. circumduction Body Position Standing Water Level Chest Level Reps/Duration x 10 reps 2 Details Hip AB/AD Body Position Standing Water Level Chest Level Reps/Duration x 10 reps 1 Details Hip flex/ext Body Position Standing Water Level Chest Level Reps/Duration x 10 reps Upper Extremity Exercises 3 Details Shoulder IR/ER Body Position Standing Water Level Neck Level 2 Details Shoulder circles Body Position Standing Water Level Neck Level 1 Details Shoulder rolls/shrugs Body Position Standing Water Level Neck Level Spinal Exercises 1 Details U.E. Horiz AB/AD, shoulder flexion Body Position Standing Water Level Chest Level Comments With core stabilization emphasis, bilateral and unilateral PT-OP-T Assessment and Plan Start: 12/15/17 10:15 Freq: Status: Active Protocol: Document 02/25/18 15:52 [facility] (Rec: 02/25/18 15:57 [facility] [id number]) Physical Therapy Assessment Impairments Impairments Activity Tolerance Functional Mobility Gait Pain Posture ROM Soft Tissue Mobility Strength Goals Four Impairment weakness Fpc Goal (LTG) Increase strength right knee and left shoulder to 4+/5 Three Impairment Gait Business Programmer Goal (LTG) Patient able to ambulate with appropriate assistive device without limp LTG Duration 2 months Two Impairment Patient education Fpc Goal (LTG) patient to be safe and compliant with HEP and aquatic exercise program for strengthening, ROM, pain management of right knee and left shoulder. LTG Duration 2 months One Impairment right knee pain Fpc Goal (LTG) Decrease right knee pain to 2- 3/10 LTG Duration 2 months Eight Impairment weakness left shoulder Fpc Goal (LTG) Patient left UE strength at least 4+/5 LTG Duration 6 wks Seven Impairment activity tolerance Fpc Goal (LTG) Patient able to reach overhead and behind her back with minimal to no pain for purposes of ADL's and usual activities LTG Duration 6 wks Assessment Summary Assessment Improved postural alignment with ther ex, denied pain. Physical Therapy Plan Frequency and Duration Frequency of Treatment 2x/Week Plan of Care Start Date 02/17/18 Plan of Care End Date 04/20/18 Therapeutic Interventions Therapeutic Interventions Aquatic Therapy Home Exercise Program Manual Therapy Patient/Caregiver Education Self-Care/Home Management Therapeutic Activities Therapeutic Exercises Modalities Cold Pack/Ice Massage Electric Stimulation Hot Packs Ultrasound Next Visit Focus/Plan Next Note Type Treatment Note Next Visit Plan Continue to progress aquatic exercise as tolerated.
--- NOTE | 2018-03-08 16:21 | PT.OTN ---
Current Diagnoses Pain in right knee (03/08/18) Difficulty in walking, not elsewhere classified (03/08/18) Weakness (03/08/18) Presence of right artificial knee joint (03/08/18) Physical Therapy Treatment Note PT-OP-A Visit Information Start: 12/15/17 10:15 Freq: Status: Active Protocol: Document 03/08/18 14:30 GGD (Rec: 03/08/18 16:20 GGD [email or web address]) Out-Patient Physical Therapy Visit Information Visit Information Visit Type Treatment Note Visit Start Time 14:40 Visit Stop Time 15:20 Visit Number 25 5/10 g code Number of ARTIST COLOR SEPARATION Visits 1 Evaluation Information Evaluation Date 09/02/17 PT-OP-B Current Condition Start: 01/04/18 11:27 Freq: Status: Active Protocol: Document 01/04/18 11:27 SAK (Rec: 01/04/18 12:03 SAK [id number]) Current Condition History of Current Condition Onset Date chronic History of Current Condition injection in left shoulder yesterday. Long history bilateral shoulder pain Prior Treatments and Tests x-rays show arthritis PT-OP-C Subjective Start: 12/15/17 10:15 Freq: Status: Active Protocol: Document 03/08/18 14:30 GGD (Rec: 03/08/18 16:20 GGD [email or web address]) OP-PT Subjective Patient Comments Patient Comments Pt states having more pain with medication changes. Document 03/08/18 14:30 GGD (Rec: 03/08/18 16:20 GGD [email or web address]) Cardio Equipment Recumbent Stepper (Sci-Fit) Duration (Minutes) 10 Resistance 3 Other LE's only Gym Equipment Shuttle Recovery Bilateral Squats Resistance 75 Shuttle Recovery Platform Stable Reps/Time 20 Therapeutic Exercises Supine Exercises 1 Supine Exercise Name SAQ Equipment Used bolster Reps/Minutes 10x2 Other Exercises 1 Other Exercise Name row, shld ext, shld ER Resistance L1 TB Reps/Minutes 5x Comments verbal and manual cues PT-OP-R Modalities Start: 12/15/17 10:15 Freq: Status: Active Protocol: Document 03/08/18 14:30 GGD (Rec: 03/08/18 16:20 GGD [email or web address]) Electric Stimulation Electric Stimulation Interferential Current (IFC) Body Location left shoulder Duration (Minutes) 15 Target/Sweep Sweep Patient Position Hooklying Combined With Heat/Cold Hot Pack Hot Pack/Cold Pack Treatment Cold Pack Location right knee Patient Position Hooklying Patient Tolerance Good Document 03/08/18 14:30 GGD (Rec: 03/08/18 16:20 GGD [email or web address]) Physical Therapy Assessment Assessment Summary Assessment Pt need cues for posture with exercise. She had mild increase in pain with leg press. Physical Therapy Plan Frequency and Duration Frequency of Treatment 2x/Week Plan of Care Start Date 02/17/18 Plan of Care End Date 04/20/18 Therapeutic Interventions Therapeutic Interventions Aquatic Therapy Home Exercise Program Manual Therapy Patient/Caregiver Education Self-Care/Home Management Therapeutic Activities Therapeutic Exercises Modalities Cold Pack/Ice Massage Electric Stimulation Hot Packs Ultrasound Next Visit Focus/Plan Next Note Type Treatment Note Next Visit Plan Continue to progress strengthening exercise as tolerated.
--- NOTE | 2018-03-21 13:45 | PT.OTN ---
Current Diagnoses Pain in right knee (03/21/18) Difficulty in walking, not elsewhere classified (03/21/18) Weakness (03/21/18) Presence of right artificial knee joint (03/21/18) Physical Therapy Treatment Note PT-OP-A Visit Information Start: 12/15/17 10:15 Freq: Status: Active Protocol: Document 03/21/18 13:45 TMS (Rec: 03/21/18 16:43 TMS [email or web address]) Out-Patient Physical Therapy Visit Information Visit Information Visit Type Treatment Note Visit Start Time 13:10 Visit Stop Time 13:45 Total Visit Minutes 35 Visit Number 26 PT-OP-B Current Condition Start: 01/04/18 11:27 Freq: Status: Active Protocol: Document 01/04/18 11:27 SAK (Rec: 01/04/18 12:03 SAK [id number]) Current Condition History of Current Condition Onset Date chronic History of Current Condition injection in left shoulder yesterday. Long history bilateral shoulder pain Prior Treatments and Tests x-rays show arthritis PT-OP-C Subjective Start: 12/15/17 10:15 Freq: Status: Active Protocol: Document 03/21/18 13:45 TMS (Rec: 03/21/18 16:43 TMS [email or web address]) OP-PT Subjective Patient Comments Patient Comments Pt. states back has been sore, happy to be in water. PT-OP-F Manual Assessment Start: 01/04/18 13:24 Freq: Status: Active Protocol: Document 01/04/18 11:21 SAK (Rec: 01/04/18 13:40 SAK [id number]) Manual Assessments Soft Tissue Assessment Soft Tissue Mobility Assessment Increased muscle bulk and tightness left upper trap and levator scapulae Joint Mobility Assessment Joint Mobility Assessment decreased posterior and inferior glide left GH joint PT-OP-K Range of Motion Start: 01/04/18 13:24 Freq: Status: Active Protocol: Document 02/17/18 14:35 SAK (Rec: 02/17/18 16:01 SAK [id number]) Shoulder Goniometric Range of Motion Shoulder Measured in Degrees Left Active Shoulder ROM WFL No Testing Position Sitting Flexion 125 Extension 12 Abduction 100 External Rotation at 45 degrees 24 Abduction Internal Rotation Behind Back (text) T8 Shoulder ROM Limitations Shoulder ROM Limitations Bony Restriction Pain PT-OP-L Special Tests Start: 01/04/18 13:24 Freq: Status: Active Protocol: Document 02/17/18 14:35 SAK (Rec: 02/17/18 16:01 SAK [id number]) Special Tests Shoulder Special Tests Elevation Impingement Test Results positive bilaterally PT-OP-M Strength Start: 01/04/18 13:24 Freq: Status: Active Protocol: Document 02/17/18 14:35 SAK (Rec: 02/17/18 16:01 SAK [id number]) Shoulder Strength Shoulder Manual Muscle Testing Left Comments no significant change PT-OP-Q Treatments Start: 12/15/17 10:15 Freq: Status: Active Protocol: Document 03/08/18 14:30 GGD (Rec: 03/08/18 16:20 GGD [email or web address]) Cardio Equipment Recumbent Stepper (Sci-Fit) Duration (Minutes) 10 Resistance 3 Other LE's only Gym Equipment Shuttle Recovery Bilateral Squats Resistance 75 Shuttle Recovery Platform Stable Reps/Time 20 Therapeutic Exercises Supine Exercises 1 Supine Exercise Name SAQ Equipment Used bolster Reps/Minutes 10x2 Other Exercises 1 Other Exercise Name row, shld ext, shld ER Resistance L1 TB Reps/Minutes 5x Comments verbal and manual cues PT-OP-R Modalities Start: 12/15/17 10:15 Freq: Status: Active Protocol: Document 03/08/18 14:30 GGD (Rec: 03/08/18 16:20 GGD [email or web address]) Electric Stimulation Electric Stimulation Interferential Current (IFC) Body Location left shoulder Duration (Minutes) 15 Target/Sweep Sweep Patient Position Hooklying Combined With Heat/Cold Hot Pack Hot Pack/Cold Pack Treatment Cold Pack Location right knee Patient Position Hooklying Patient Tolerance Good PT-OP-S Aquatic Treatment Start: 02/21/18 15:43 Freq: Status: Active Protocol: Document 03/21/18 13:45 TMS (Rec: 03/21/18 16:43 TMS [email or web address]) Aquatics Treatment Pool Entry/Exit Pool Entry/Exit Method Stairs Assistance Independent Water Walking Backwards Water Level Chest Level Comments with gentle reverse breastroke Sideways Water Level Chest Level Comments With gentle AB/AD Forwards Water Level Chest Level Comments With gentle breast stroke motions with arms. Lower Extremity Exercises 4 Details Knee flexion/extension Body Position Standing Water Level Chest Level Equipment Small resistance fins Reps/Duration x 12 reps 3 Details L.E. circumduction Body Position Standing Water Level Chest Level Equipment Small resistance fins Reps/Duration x 12 reps 2 Details Hip AB/AD Body Position Standing Water Level Chest Level Equipment Small resistance fins Reps/Duration x 10 reps 1 Details Hip flex/ext Body Position Standing Water Level Chest Level Reps/Duration x 10 reps Spinal Exercises 1 Details U.E. Horiz AB/AD, shoulder flexion Body Position Standing Water Level Chest Level Comments With core stabilization emphasis, bilateral and unilateral Effort Activities Effort Activities Bicycle Cross Country Equipment Belt Duration 15 minutes PT-OP-T Assessment and Plan Start: 12/15/17 10:15 Freq: Status: Active Protocol: Document 03/21/18 13:45 TMS (Rec: 03/21/18 16:43 TMS [email or web address]) Physical Therapy Assessment Goals Four Impairment weakness Assisted Goal (LTG) Increase strength right knee and left shoulder to 4+/5 Three Impairment Gait Dye Range Operator Goal (LTG) Patient able to ambulate with appropriate assistive device without limp Two Impairment Patient education Dye Range Operator Goal (LTG) patient to be safe and compliant with HEP and aquatic exercise program for strengthening, ROM, pain management of right knee and left shoulder. One Impairment right knee pain Assisted Goal (LTG) Decrease right knee pain to 2- 3/10 LTG Duration 2 months Eight Impairment weakness left shoulder Dye Range Operator Goal (LTG) Patient left UE strength at least 4+/5 LTG Duration 6 wks Seven Impairment activity tolerance Assisted Goal (LTG) Patient able to reach overhead and behind her back with minimal to no pain for purposes of ADL's and usual activities LTG Duration 6 wks Assessment Summary Assessment Pt. continues to need cues for posture, tolerated add resistance of fins well with shallow exercises. Physical Therapy Plan Frequency and Duration Frequency of Treatment 2x/Week Plan of Care Start Date 02/17/18 Plan of Care End Date 04/20/18 Next Visit Focus/Plan Next Note Type Treatment Note Next Visit Plan Continue to progress strengthening exercise as tolerated.
--- NOTE | 2018-04-06 17:16 | PT.OTN ---
Current Diagnoses Pain in right knee (04/06/18) Difficulty in walking, not elsewhere classified (04/06/18) Weakness (04/06/18) Presence of right artificial knee joint (04/06/18) Physical Therapy Treatment Note PT-OP-A Visit Information Start: 12/15/17 10:15 Freq: Status: Active Protocol: Document 04/06/18 13:45 LJ (Rec: 04/06/18 17:16 LJ [email or web address]) Out-Patient Physical Therapy Visit Information Visit Information Visit Type Treatment Note PT-OP-B Current Condition Start: 01/04/18 11:27 Freq: Status: Active Protocol: Document 01/04/18 11:27 SAK (Rec: 01/04/18 12:03 SAK [id number]) Current Condition History of Current Condition Onset Date chronic History of Current Condition injection in left shoulder yesterday. Long history bilateral shoulder pain Prior Treatments and Tests x-rays show arthritis PT-OP-C Subjective Start: 12/15/17 10:15 Freq: Status: Active Protocol: Document 04/06/18 13:45 LJ (Rec: 04/06/18 17:16 LJ [email or web address]) OP-PT Subjective Patient Comments Patient Comments Pt reported being fatigued after gardening a little today . OP-PT Pain Assessment Location Left Upper Lateral Shoulder Pain Location Details chronic Intensity 4 Description Aching Pinching Shooting Frequency Constant Pain Aggravating Factors Position ADL's Activity Lifting Pain Alleviating Factors None Pain Behaviors Pain Behaviors Calling Out Facial Grimacing Guarding PT-OP-F Manual Assessment Start: 01/04/18 13:24 Freq: Status: Active Protocol: Document 01/04/18 11:21 SAK (Rec: 01/04/18 13:40 SAK [id number]) Manual Assessments Soft Tissue Assessment Soft Tissue Mobility Assessment Increased muscle bulk and tightness left upper trap and levator scapulae Joint Mobility Assessment Joint Mobility Assessment decreased posterior and inferior glide left GH joint PT-OP-K Range of Motion Start: 01/04/18 13:24 Freq: Status: Active Protocol: Document 02/17/18 14:35 SAK (Rec: 02/17/18 16:01 SAK [id number]) Shoulder Goniometric Range of Motion Shoulder Measured in Degrees Left Active Shoulder ROM WFL No Testing Position Sitting Flexion 125 Extension 12 Abduction 100 External Rotation at 45 degrees 24 Abduction Internal Rotation Behind Back (text) T8 Shoulder ROM Limitations Shoulder ROM Limitations Bony Restriction Pain PT-OP-L Special Tests Start: 01/04/18 13:24 Freq: Status: Active Protocol: Document 02/17/18 14:35 SAK (Rec: 02/17/18 16:01 SAK [id number]) Special Tests Shoulder Special Tests Elevation Impingement Test Results positive bilaterally PT-OP-M Strength Start: 01/04/18 13:24 Freq: Status: Active Protocol: Document 02/17/18 14:35 SAK (Rec: 02/17/18 16:01 SAK [id number]) Shoulder Strength Shoulder Manual Muscle Testing Left Comments no significant change PT-OP-Q Treatments Start: 12/15/17 10:15 Freq: Status: Active Protocol: Document 03/08/18 14:30 GGD (Rec: 03/08/18 16:20 GGD [email or web address]) Cardio Equipment Recumbent Stepper (Sci-Fit) Duration (Minutes) 10 Resistance 3 Other LE's only Gym Equipment Shuttle Recovery Bilateral Squats Resistance 75 Shuttle Recovery Platform Stable Reps/Time 20 Therapeutic Exercises Supine Exercises 1 Supine Exercise Name SAQ Equipment Used bolster Reps/Minutes 10x2 Other Exercises 1 Other Exercise Name row, shld ext, shld ER Resistance L1 TB Reps/Minutes 5x Comments verbal and manual cues PT-OP-R Modalities Start: 12/15/17 10:15 Freq: Status: Active Protocol: Document 03/08/18 14:30 GGD (Rec: 03/08/18 16:20 GGD [email or web address]) Electric Stimulation Electric Stimulation Interferential Current (IFC) Body Location left shoulder Duration (Minutes) 15 Target/Sweep Sweep Patient Position Hooklying Combined With Heat/Cold Hot Pack Hot Pack/Cold Pack Treatment Cold Pack Location right knee Patient Position Hooklying Patient Tolerance Good PT-OP-S Aquatic Treatment Start: 02/21/18 15:43 Freq: Status: Active Protocol: Document 04/06/18 13:45 LJ (Rec: 04/06/18 17:16 LJ [email or web address]) Aquatics Treatment Pool Entry/Exit Pool Entry/Exit Method Stairs Assistance Independent Water Walking Backwards Water Level Chest Level Comments with gentle reverse breastroke Sideways Water Level Chest Level Comments With gentle AB/AD Forwards Water Level Chest Level Comments With gentle breast stroke motions with arms. Lower Extremity Exercises 4 Details Knee flex/ext Body Position Standing Water Level Chest Level Equipment Reps/Duration x 12 reps 3 Details L.E. circumduction Body Position Standing Water Level Chest Level Equipment Reps/Duration x 12 reps 2 Details Hip AB/AD Body Position Standing Water Level Chest Level Equipment Reps/Duration x 10 reps 1 Details Hip flex/ext Body Position Standing Water Level Chest Level Reps/Duration x 10 reps Upper Extremity Exercises 3 Details Shoulder IR/ER Body Position Standing Water Level Neck Level 1 Details Shoulder rolls/shrugs Body Position Standing Water Level Neck Level Spinal Exercises 1 Details U.E. Horiz AB/AD, shoulder flexion Body Position Standing Water Level Chest Level Comments With core stabilization emphasis, bilateral and unilateral [place] Activities [place] Activities Bicycle Cross [place] Equipment Belt Duration 15 minutes PT-OP-T Assessment and Plan Start: 12/15/17 10:15 Freq: Status: Active Protocol: Document 04/06/18 13:45 KAITLIN (Rec: 04/06/18 17:16 [email or web address]) Physical Therapy Assessment Impairments Impairments Activity Tolerance Functional Mobility Gait Pain Posture ROM Soft Tissue Mobility Strength Goals Four Impairment weakness Jail Goal (LTG) Increase strength right knee and left shoulder to 4+/5 Three Impairment Gait Power Saw Mechanic Goal (LTG) Patient able to ambulate with appropriate assistive device without limp Two Power Saw Mechanic Goal (LTG) patient to be safe and compliant with HEP and aquatic exercise program for strengthening, ROM, pain management of right knee and left shoulder. One Impairment right knee pain Jail Goal (LTG) Decrease right knee pain to 2- 3/10 Eight Impairment weakness left shoulder Power Saw Mechanic Goal (LTG) Patient left UE strength at least 4+/5 Seven Impairment activity tolerance Power Saw Mechanic Goal (LTG) Patient able to reach overhead and behind her back with minimal to no pain for purposes of ADL's and usual activities Assessment Summary Assessment Pt. continues to need cues for posture, tactile cues for balnace. Pt complained of RLE cramping Physical Therapy Plan Frequency and Duration Frequency of Treatment 2x/Week Plan of Care Start Date 02/17/18 Plan of Care End Date 04/20/18 Therapeutic Interventions Therapeutic Interventions Aquatic Therapy Home Exercise Program Manual Therapy Patient/Caregiver Education Self-Care/Home Management Therapeutic Activities Therapeutic Exercises Modalities Cold Pack/Ice Massage Electric Stimulation Hot Packs Ultrasound Next Visit Focus/Plan Next Note Type Treatment Note Next Visit Plan Continue to progress strengthening exercise as tolerated.
--- NOTE | 2018-06-14 10:55 | PT.OPDS ---
Current Diagnoses Pain in right knee (04/06/18) Difficulty in walking, not elsewhere classified (04/06/18) Weakness (04/06/18) Presence of right artificial knee joint (04/06/18) Provider Visit Care Team Role Provider Type Raoul Villalobos MD Attending Provider Non-Staff Specialty: Medical Address: [address] [place] [address], [facility] Email: Visit Number Visit Number [id number] Discharge Summary PT-OP-B Current Condition Start: 01/04/18 11:27 Freq: Status: Active Protocol: Document 01/04/18 11:27 SAK (Rec: 01/04/18 12:03 SAK [id number]) Current Condition History of Current Condition Onset Date chronic History of Current Condition injection in left shoulder yesterday. Long history bilateral shoulder pain Prior Treatments and Tests x-rays show arthritis PT-OP-C Subjective Start: 12/15/17 10:15 Freq: Status: Active Protocol: Document 04/06/18 13:45 LJ (Rec: 04/06/18 17:16 LJ [id number]) OP-PT Subjective Patient Comments Patient Comments Pt reported being fatigued after gardening a little today . OP-PT Pain Assessment Location Left Upper Lateral Shoulder Pain Location Details chronic Intensity 4 Description Aching Pinching Shooting Frequency Constant Pain Aggravating Factors Position ADL's Activity Lifting Pain Alleviating Factors None Pain Behaviors Pain Behaviors Calling Out Facial Grimacing Guarding PT-OP-F Manual Assessment Start: 01/04/18 13:24 Freq: Status: Active Protocol: Document 01/04/18 11:21 SAK (Rec: 01/04/18 13:40 SAK [id number]) Manual Assessments Soft Tissue Assessment Soft Tissue Mobility Assessment Increased muscle bulk and tightness left upper trap and levator scapulae Joint Mobility Assessment Joint Mobility Assessment decreased posterior and inferior glide left GH joint PT-OP-K Range of Motion Start: 01/04/18 13:24 Freq: Status: Active Protocol: Document 02/17/18 14:35 SAK (Rec: 02/17/18 16:01 SAK [id number]) Shoulder Goniometric Range of Motion Shoulder Measured in Degrees Left Active Shoulder ROM WFL No Testing Position Sitting Flexion 125 Extension 12 Abduction 100 External Rotation at 45 degrees 24 Abduction Internal Rotation Behind Back (text) T8 Shoulder ROM Limitations Shoulder ROM Limitations Bony Restriction Pain PT-OP-L Special Tests Start: 01/04/18 13:24 Freq: Status: Active Protocol: Document 02/17/18 14:35 [facility] (Rec: 02/17/18 16:01 [facility] [id number]) Special Tests Shoulder Special Tests Elevation Impingement Test Results positive bilaterally PT-OP-M Strength Start: 01/04/18 13:24 Freq: Status: Active Protocol: Document 02/17/18 14:35 [facility] (Rec: 02/17/18 16:01 [facility] [id number]) Shoulder Strength Shoulder Manual Muscle Testing Left Comments no significant change PT-OP-T Assessment and Plan Start: 12/15/17 10:15 Freq: Status: Active Protocol: Document 06/14/18 10:53 [facility] (Rec: 06/14/18 10:55 [facility] [id number]) Physical Therapy Assessment Assessment Summary Assessment Patient has not been seen in physical therapy for 2 months due to medical issues. Unable to perform discharge assessment. Patient may benefit from PT in the future when her medical issues are resolved. Physical Therapy Plan Discharge Physical Therapy Discharge Reasons Change in Medical Status
== END 2018-07-15 13:29 ==
LOC: PHYS 13:45
PROVIDERS: Visit Provider Orthopaedic Surgery
DX: Z96.651 Presence of right artificial knee joint (principal); M25.561 Pain in right knee; R26.2 Difficulty in walking, not elsewhere classified; R53.1 Weakness
CPT/HCPCS: 97010; 97014; 97035; 97110; 97112; 97113; 97140; G0283

== ENCOUNTER 2018-05-08 21:52 | Observation (INO) | payer MEDICARE, OTHER, SELFPAY ==
[2018-05-08 21:58] VITALS: BP 106/68; PULSE 96; RESP 20; TEMP 36.2; O2SAT 95; BMI 42.3
[2018-05-09] VITALS (8 sets, daily range): BP systolic 129–151; BP diastolic 61–93; PULSE 79–99; RESP 16–20; TEMP 36.1–36.6; O2SAT 96–100; BMI 43.5
--- NOTE | 2018-05-09 | DI.RAD.S_ITS ---
PROCEDURE: XR CHEST FOR PICC 1V INDICATIONS: midline placement TECHNIQUE: One view of the chest was acquired. COMPARISON: [facility], CR, XR CHEST 2VW, 05/14/2017, 10:59. FINDINGS: Surgical changes and devices: Left-sided PICC line catheter is identified with the tip overlying the superior vena cava. Median sternotomy changes are present. Lungs and pleura: Evaluation of the lungs is limited related to suboptimal portable technique, resulting in limited evaluation of the lung bases. There may be areas of bibasilar consolidation (left greater than right). Mediastinum: Mediastinal contours appear normal. Heart size is normal. There is aortic atherosclerosis. Bones and chest wall: No suspicious bony lesions. Age-indeterminate left humeral head fracture appears to be present. Overlying soft tissues appear unremarkable. IMPRESSION: Left-sided PICC line catheter is positioned with the tip overlying the mid superior vena cava. Dictated by: Collin Santos M.D. on 05/09/2018 at 14:24 Approved by: Collin Santos M.D. on 05/09/2018 at 14:25
--- NOTE | 2018-05-09 00:20 | PC.NURSE ---
Blister to right great toe with mod drainage. Bilat lower extremities cool to touch. Pt reports hx peripheral neuropathy.
--- NOTE | 2018-05-09 01:25 | DI.RAD.S_ITS ---
PROCEDURE: XR FOOT RT MIN 3V INDICATIONS: big toe infection with foot surgery TECHNIQUE: 3 views of the foot were acquired. COMPARISON: None. FINDINGS: Bones: No fractures or dislocations. No suspicious bony lesions. Postsurgical changes related to surgical arthrodesis of the first TMT and calcaneal navicular joint. There are multiple fractured screws. Prominent plantar calcaneal spur and screw fixation of the subtalar joint. No evidence of hardware loosening. 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 No definite focal osseous destruction. Chronic deformity of the fifth metatarsal which could be postsurgical. Soft tissues: No tibiotalar joint effusion. Achilles tendon appears normal. IMPRESSION: No definite focal osseous destruction seen. If there is persistent clinical concern for early infection, MRI with and without contrast could be performed, versus continued short interval radiographic followup. Dictated by: Herb Stevens M.D. on 05/09/2018 at 8:31 Approved by: Herb Stevens M.D. on 05/09/2018 at 8:43
[2018-05-09] MEDS: CLINDAMYCIN 600 MG/50 ML PIGGYBACK 50 MG IV ×4 (01:52→23:31)
--- NOTE | 2018-05-09 02:26 | PC.NURSE ---
this nurse asked by Yany Blake RN to attempt an iv start after she tried 3 times. pt has difficult veins to find and they blow. pt tolerated very well.
--- NOTE | 2018-05-09 02:36 | PC.NURSE ---
when inserting IV pt sounded wheezy to me. She states she has asthma and usually uses symbacort every night. she did not have that tonight. lung sounds are clear. upper airway is course. Provider notified, verbal order received.
[2018-05-09 02:43] LABS: Hematocrit 36.3 % (36-46); Hemoglobin 11.8 g/dL (12.0-16.0); Mean Corpuscular HGB Conc 32.7 % (30-36); Mean Corpuscular Hemoglobin 27.3 PG (26-34); Mean Corpuscular Volume 83.5 fL (80-100); Platelet Count 348 X10^3/uL (150-400); Red Blood Cell Count 4.34 X10^6/uL (4.0-5.2); Red Cell Distribution Width 16.3 % (11.6-14.8); White Blood Cell Count 9.5 X10^3/uL (4.5-11.0)
[2018-05-09 02:44] LABS: Add Manual Diff / Slide Review YES
[2018-05-09 02:45] LABS: BUN Creatinine Ratio 21.5 (6-22); Blood Urea Nitrogen 43 mg/dL (7-17); Calcium 10.2 mg/dL (8.4-10.2); Carbon Dioxide 27 mmol/L (22-32); Chloride 104 mmol/L (98-107); Glucose 127 mg/dL (80-110); HEMOLYSIS < 15 (0-50); Lactate (Lactic Acid) 1.1 mmol/L (0.7-2.1); Potassium 4.5 mmol/L (3.4-5.1); Sodium 143 mmol/L (137-145)
[2018-05-09] MEDS: ALBUTEROL/IPRATROPIUM 3 ML AMPUL INH (02:53)
[2018-05-09 03:15] LABS: Neutrophils Absolute Manual 5320 /uL (3000-5900); Total Cells Counted 100
[2018-05-09 03:16] LABS: Anisocytosis 1+
[2018-05-09] MEDS: SODIUM CHLORIDE 0.9% 1,000 ML 125 ML IV ×2 (04:45→16:47)
--- NOTE | 2018-05-09 05:30 | PC.NURSE ---
pt arrived via stretcher. pt able to ambulate w/1PA with FWW. pt denied pain, n/v or sob. 98%RA. LS: clear. call light in reach. bed alarm active. IVF.
--- NOTE | 2018-05-09 06:20 | ED_ITS ---
HPI - Extremity Problem General Chief complaint: Extremity Problem,Nontraumatic Stated complaint: RED, HOT SWELLING RT FOOT Time Seen by Provider: 05/09/18 01:03 Source: patient Mode of arrival: ambulatory Limitations: no limitations History of Present Illness HPI Narrative: Patient is an 82-year-old female who presents with all right toe cellulitis. She said she was wearing bad shoes last week she saw her primary on 05/06/2018 she was prescribed Bactrim which she has been taking. However it is draining more in the redness is coming up her foot. She has chronic ongoing neuropathy so she denies any pain. She denies any fever chills or weakness. MD Complaint: extremity pain Related Data Home Medications Medication Instructions Recorded Confirmed albuterol sulfate 2 puff INHALATION Q4-6H PRN 05/09/18 05/09/18 aspirin 81 mg PO DAILY 05/09/18 05/09/18 budesonide-formoterol [Symbicort] 2 puff INHALATION BID 05/09/18 05/09/18 budesonide-formoterol [Symbicort] 2 puff INHALATION BID 05/09/18 05/09/18 cholecalciferol (vitamin D3) 2,000 unit PO DAILY 05/09/18 05/09/18 [Vitamin D3] coenzyme Q10 [Co Q-10] 100 mg PO DAILY 05/09/18 05/09/18 cyanocobalamin (vitamin B-12) 1,000 mcg PO DAILY 05/09/18 05/09/18 diclofenac sodium 75 mg PO BID 05/09/18 05/09/18 duloxetine 30 mg PO DAILY 05/09/18 05/09/18 estradiol 1 mg VAGINAL 2XW 05/09/18 05/09/18 fenofibrate 150 mg PO DAILY 05/09/18 05/09/18 fluticasone [Flonase Allergy 2 spray INTRANASAL DAILY 05/09/18 05/09/18 Relief] furosemide [Lasix] 20 mg PO DAILY 05/09/18 05/09/18 gabapentin 300 mg PO TID 05/09/18 05/09/18 guaifenesin [Mucinex] 600 mg PO PRN PRN 05/09/18 05/09/18 losartan 50 mg PO DAILY 05/09/18 05/09/18 ogkeohltxxrn-Ft-mcsx-minerals 1 ea PO DAILY 05/09/18 05/09/18 [Multiple Vitamin, Womens] omeprazole 20 mg PO DAILY 05/09/18 05/09/18 polyethylene glycol 3350 [GlycoLax] 17 g PO DAILY 05/09/18 05/09/18 pramipexole [Mirapex] 0.125 mg PO TID 05/09/18 05/09/18 quinine sulfate 324 mg PO BEDTIME 05/09/18 05/09/18 tiotropium bromide [Spiriva 2 puff INHALATION DAILY 05/09/18 05/09/18 Respimat] Allergies Allergy/AdvReac Type Severity Reaction Status Date / Time amoxicillin [AMOXICILLIN] Allergy Unknown Rash Verified 05/08/18 22:07 cefaclor [From CECLOR] Allergy Unknown Rash Verified 05/08/18 22:07 cefpodoxime [CEFPODOXIME] Allergy Unknown Rash Verified 05/08/18 22:07 clavulanic acid Allergy Unknown Rash Verified 05/08/18 22:07 [From AUGMENTIN] levofloxacin [LEVOFLOXACIN] Allergy Unknown Rash Verified 05/08/18 22:07 Review of Systems Review of Systems All systems reviewed & are unremarkable except as noted in HPI and below Constitutional Denies chills, Denies fever(s), Denies lethargy and Denies weakness Cardiovascular Denies chest pain, Denies irregular heart rhythm, Denies lightheadedness, Denies palpitations, Denies dyspnea, Denies dyspnea on exertion and Denies orthopnea Respiratory Denies cough, Denies dyspnea, Denies dyspnea on exertion and Denies wheezing Gastrointestinal Gastrointestinal: Denies abdominal pain, Denies change in bowel habits, Denies diarrhea, Denies nausea and Denies vomiting Musculoskeletal Reports system reviewed and no additional complaints, except as docu and Reports numbness (Chronic lower extremity neuropathy) Integumentary/Breasts Reports as per HPI Neurologic Reports numbness (Chronic lower extremity neuropathy) and Denies weakness Endocrine Denies palpitations Allergic/Immunologic Denies wheezing [facility] Social History Smoking Status: Never smoker Exam Initial Vital Signs Initial Vital Signs: Vital Signs Temperature 97.2 F L 05/08/18 21:58 Pulse Rate 96 H 05/08/18 21:58 Respiratory Rate 20 05/08/18 21:58 Blood Pressure 106/68 05/08/18 21:58 Pulse Oximetry 95 05/08/18 21:58 GENERAL: Well-appearing female appears younger than stated age HEENT: Head atraumatic,EOMI, pupils reactive, face symmetric, neck is supple no JVD or meningeal signs CARDIOVASCULAR: Regular rate and rhythm without murmurs, rubs or gallops. RESPIRATORY: Breath sounds equal bilaterally, no wheezes rales or rhonchi. ABDOMEN: Soft, nontender. Normoactive bowel sounds all 4 quadrants. No guarding or rebound. EXTREMITIES: Normal range of motion, no clubbing or edema. Neurovascularly intact. The right distal pedal pulse intact scar noted on right foot NEUROLOGICAL: Alert and oriented x4.Normal gait and speech. Cranial nerves II through XII grossly intact. SKIN: Right toe medially has a blister an open wound at the very distal tip. The entire toe is cellulitic is with streaking over the foot. Clear drainage Course Orders Ordered: ED Orders 05/09/18 01:25 XR foot RT min 3V Stat 05/09/18 02:20 Basic Metabolic Panel Stat Complete Blood Count AUTO DIFF Stat Lactate (Lactic Acid) Stat 05/09/18 02:25 Blood Culture Stat 05/09/18 04:24 Consult to Physician Routine Acetaminophen (Tylenol) 650 mg PO Q6HR PRN PRN Reason: As Needed for Fever/Mild Pain Sodium Chloride (Normal Saline 0.9%) 1,000 mls @ 125 mls/hr IV CONT MOHIT Last Admin: 05/09/18 04:45 Dose: 125 mls/hr Discontinued Medications Albuterol/Ipratropium (Duoneb) 3 ml INH NOW ONE Stop: 05/09/18 02:39 Last Admin: 05/09/18 02:53 Dose: 3 ml Clindamycin Phosphate (Cleocin) 600 mg in 50 mls @ 50 mls/hr IV NOW ONE Stop: 05/09/18 02:24 Last Infusion: 05/09/18 03:21 Dose: 0 mls/hr Admin: 05/09/18 01:52 Dose: 50 mls/hr Vital Signs - 8 hr 05/09/18 02:54 05/09/18 04:15 Temperature 97.6 F Pulse Rate 79 99 H Respiratory Rate 16 20 Blood Pressure 151/71 H Pulse Oximetry 96 98 MDM - Extremity (Nontraumatic) Lab Data Attestation: I reviewed the patient's lab results. Result diagrams: 05/09/18 02:20 05/09/18 02:20 Lab Results 05/09/18 05/09/18 05/09/18 Range/Units 02:20 02:20 02:20 WBC 9.5 (4.5-11.0) X10^3/uL RBC 4.34 (4.0-5.2) X10^6/uL Hgb 11.8 L (12.0-16.0) g/dL Hct 36.3 (36-46) % MCV 83.5 (80-100) fL MCH 27.3 (26-34) PG MCHC 32.7 (30-36) % RDW 16.3 H (11.6-14.8) % Plt Count 348 (150-400) X10^3/uL Neut % (Auto) Not Reportable Lymph % (Auto) Not Reportable [place] % (Auto) Not Reportable Eos % (Auto) Not Reportable Baso % (Auto) Not Reportable Total Counted 100 Seg Neutrophils % 52.0 (38-70) % Band Neutrophils % 4.0 (3-7) % Lymphocytes % (Manual) 33.0 (25-45) % Monocytes % (Manual) 7.0 (2-11) % Eosinophils % (Manual) 4.0 (2-4) % Neutrophils # (Manual) 5320 (9363-8605) /uL RBC Morphology Not Reportable Anisocytosis 1+ H Sodium 143 (137-145) mmol/L Potassium 4.5 (3.4-5.1) mmol/L Chloride 104 (98-107) mmol/L Carbon Dioxide 27 (22-32) mmol/L BUN 43 H (7-17) mg/dL Creatinine 2.00 H (0.52-1.04) mg/dL Estimated GFR 24.0 L (>60) mL/min BUN/Creatinine Ratio 21.5 (6-22) Glucose 127 H (80-110) mg/dL Lactate 1.1 (0.7-2.1) mmol/L Calcium 10.2 (8.4-10.2) mg/dL Imaging Data Right foot x-ray:: Attestation: I personally reviewed and interpreted this imaging study as follows: My impression: Hardware noted no fracture or abnormality MDM Narrative Medical decision making narrative: The patient is having worsening symptoms after a couple days of antibiotics. I believe wound care may need to come and debride the toe. She has multiple allergies to cephalosporins amoxicillin and fluoroquinolones. Empirically started her on clindamycin to cover for MRSA and strep organisms. She does not appear septic she has no leukocytosis or elevated lactate. Her creatinine is elevated on from a few months ago. Dr. Rodriguez has been updated on symptoms and test results recommends observation for now. Discharge Plan Departure Patient Disposition: Admitted as Observation Clinical Impression: Cellulitis and abscess of toe of right foot Discharge Date/Time: 05/09/18 04:05 Interventions: ED Discharge Assessment Last Done: 05/09/18 04:04 Admit Date/Time: 05/09/18 03:45 Admit Provider: Marc Rodriguez
--- NOTE | 2018-05-09 07:55 | PC.NURSE ---
Addendum entered by Ashleigh Redmond R.N. 05/09/18 14:27: picc was placed by tosha and ok to use xray done Original Note: Addendum entered by Ashleigh Redmond R.N. 05/09/18 13:30: per dr rodriguez no dressing to right great toe, keep sheets off and minimize trauma and attempt to keep blister intact. Original Note: Addendum entered by Ashleigh Redmond R.N. 05/09/18 12:32: Pt IV to right upper arm dressing changed x2 for leaking around insertion site flushes MD ana notefied to have a line placed. Original Note: Addendum entered by Ashleigh Redmond R.N. 05/09/18 10:05: pt placed on contact precautions per Dr soliman request Original Note: Day Shift Pt is A&Ox3 able to make needs known. [employer] assisted up to bathroom and pt is sitting in chair at bedside. lung sounds are clear, does have some SOB with exertion and non productive cough pt reports this is baseline, oxygen sats 98%RA. Denies any pain or discomfort. Right great toes has dressing placed from noc shift RN that is CDI, top of foot continues to have erythemia. Strong pedal pulses, pt reports she has neurpathy to bilateral feet and hands. Call light within reach and chair alarm on.
--- NOTE | 2018-05-09 10:38 | PM.HP.1 ---
History of Present Illness Date Patient Seen: 05/09/18 Chief complaint: RED, HOT SWELLING RT FOOT Narrative: Patient noted swelling and redness of the right great toe on wednesday, 3 days prior to admission. She was seen by her PCP and given bactrim. She took a few doses but noted the toe became more red, with redness speading up her foot. She presented to the ED for evaluation. Patient reports no fever, no pain, no nausea, or chills. She has neuropathy and has no feeling in the foot. She has no prior history of cellulitis to the area. She has had multiple surgeries to the foot. Patient reports chronic shortness of breath and wheezing, no chest pain, nausea, vomiting , or diarrhea. No dysruia, hematuria, or pyuria. Patient reports she has arthritis and has pain all over. Patient History Medical History COPD (chronic obstructive pulmonary disease) (Acute) GERD (gastroesophageal reflux disease) (Acute) Hyperlipidemia (Acute) Hypertension (Acute) Morbid obesity (Acute) Neuropathy (Acute) Surgical History H/O foot surgery (Acute) History of aortic valve replacement History of hip replacement History of knee replacement History of knee replacement Status post hysterectomy Family & Social History Social History: Prior Living Arrangements House Safety & Behavioral: Feels Safe in Current Yes Environment Been Physically Hurt or No Threatened By a Person Suicidal Ideation Description None Suicide Plan Description No Plan Tobacco & Substance use: Smoking Status Never smoker alcohol intake frequency 0-2 drinks per day Substance Use Type does not use Meds Home Medications Medication Instructions Recorded Confirmed Type albuterol sulfate 2 puff INHALATION Q4-6H PRN 05/09/18 05/09/18 History aspirin 81 mg PO DAILY 05/09/18 05/09/18 History budesonide-formoterol [Symbicort] 2 puff INHALATION BID 05/09/18 05/09/18 History budesonide-formoterol [Symbicort] 2 puff INHALATION BID 05/09/18 05/09/18 History cholecalciferol (vitamin D3) 2,000 unit PO DAILY 05/09/18 05/09/18 History [Vitamin D3] coenzyme Q10 [Co Q-10] 100 mg PO DAILY 05/09/18 05/09/18 History cyanocobalamin (vitamin B-12) 1,000 mcg PO DAILY 05/09/18 05/09/18 History diclofenac sodium 75 mg PO BID 05/09/18 05/09/18 History duloxetine 30 mg PO DAILY 05/09/18 05/09/18 History estradiol 1 mg VAGINAL 2XW 05/09/18 05/09/18 History fenofibrate 150 mg PO DAILY 05/09/18 05/09/18 History fluticasone [Flonase Allergy 2 spray INTRANASAL DAILY 05/09/18 05/09/18 History Relief] furosemide [Lasix] 20 mg PO DAILY 05/09/18 05/09/18 History gabapentin 300 mg PO TID 05/09/18 05/09/18 History guaifenesin [Mucinex] 600 mg PO PRN PRN 05/09/18 05/09/18 History losartan 50 mg PO DAILY 05/09/18 05/09/18 History fjgpoljdqbut-Ko-kjzw-minerals 1 ea PO DAILY 05/09/18 05/09/18 History [Multiple Vitamin, Womens] omeprazole 20 mg PO DAILY 05/09/18 05/09/18 History polyethylene glycol 3350 [GlycoLax] 17 g PO DAILY 05/09/18 05/09/18 History pramipexole [Mirapex] 0.125 mg PO TID 05/09/18 05/09/18 History quinine sulfate 324 mg PO BEDTIME 05/09/18 05/09/18 History tiotropium bromide [Spiriva 2 puff INHALATION DAILY 05/09/18 05/09/18 History Respimat] Allergies Allergy/AdvReac Type Severity Reaction Status Date / Time amoxicillin [AMOXICILLIN] Allergy Unknown Rash Verified 05/08/18 22:07 cefaclor [From CECLOR] Allergy Unknown Rash Verified 05/08/18 22:07 cefpodoxime [CEFPODOXIME] Allergy Unknown Rash Verified 05/08/18 22:07 clavulanic acid Allergy Unknown Rash Verified 05/08/18 22:07 [From AUGMENTIN] levofloxacin [LEVOFLOXACIN] Allergy Unknown Rash Verified 05/08/18 22:07 Review of Systems Review of Systems All systems reviewed & are unremarkable except as noted in HPI and below Exam Vital Signs (past 8 hours): - 05/09/18 02:54 05/09/18 04:15 05/09/18 07:28 Temperature 97.6 F 97.0 F L Pulse Rate 79 99 H 87 Respiratory Rate 16 20 20 Blood Pressure 151/71 H 129/61 Pulse Oximetry 96 98 97 Oxygen Delivery Method Room Air Oxygen Flow Rate 0 Narrative Exam Narrative: Pleasant female in NAD HEENT: NC/AT, EOMI, Oropharynx Clear, Neck supple Lungs: clear to auscultation CV: RRR nl Sl S2 3/6 KATERIN Abd: soft/ non tender/ non distended Ext: Right Great toe with 3cm ulcer, tip of toe draining micaela pus, redness extending along the dorsal surface of foot, no warmth Neuro: non focal, numbness of hands and feet Psych: no delusions or hallucinations Objective Labs Result Diagrams: 05/09/18 02:20 05/09/18 02:20 Labs: Laboratory Results - last 24 hr 05/09/18 05/09/18 05/09/18 02:20 02:20 02:20 WBC 9.5 RBC 4.34 Hgb 11.8 L Hct 36.3 MCV 83.5 MCH 27.3 MCHC 32.7 RDW 16.3 H Plt Count 348 Neut % (Auto) Not Reportable Lymph % (Auto) Not Reportable [place] % (Auto) Not Reportable Eos % (Auto) Not Reportable Baso % (Auto) Not Reportable Total Counted 100 Seg Neutrophils % 52.0 Band Neutrophils % 4.0 Lymphocytes % (Manual) 33.0 Monocytes % (Manual) 7.0 Eosinophils % (Manual) 4.0 Neutrophils # (Manual) 5320 RBC Morphology Not Reportable Anisocytosis 1+ H Sodium 143 Potassium 4.5 Chloride 104 Carbon Dioxide 27 BUN 43 H Creatinine 2.00 H Estimated GFR 24.0 L BUN/Creatinine Ratio 21.5 Glucose 127 H Lactate 1.1 Calcium 10.2 Assessment & Plan (1) Acute renal failure: Problem details: Suspect this is prerenal related to Lasix, MOO-I, and Bactrim. Will continue IVF, hold Lasix, hold Moo-I Current visit: Yes Status: Acute (2) Hypertension: Problem details: Hold Lasix and losartan for now. Will follow Current visit: Yes Status: Acute (3) Hyperlipidemia: Problem details: Continue fenofibrate Current visit: Yes Status: Acute (4) Acute exacerbation of chronic obstructive pulmonary disease (COPD): Problem details: continue usual inhalers Current visit: Yes Status: Acute (5) Cellulitis and abscess of toe of right foot: Problem details: Will continue Clindamycin, start vancomycin. Ortho/Podiatry consult-may need I/D of toe at the least. further recommendations pending their consult Current visit: Yes Status: Acute Plan: Assessment/Plan Narrative: Full code. DVT prophylaxis
[2018-05-09] MEDS: HEPARIN 5,000 UNIT/ML VIAL 5000 UNIT SUBCUT ×2 (11:48→21:09)
[2018-05-09] MEDS: FLUTICASONE 120 SPRAY/16 GM SPRAY.SUSP NASAL (11:49)
[2018-05-09] MEDS: DOCUSATE 100 MG CAPSULE PO ×2 (11:49→21:08)
[2018-05-09] MEDS: SODIUM CHLORIDE 0.9% 1,000 ML 100 ML IV (11:51)
--- NOTE | 2018-05-09 12:28 | P.CONS_ITS ---
History of Present Illness Date Patient Seen: 05/09/18 Time Patient Seen: 12:22 Chief complaint: RED, HOT SWELLING RT FOOT Reason for consult: Right great toe infection, blister, cellulitis Narrative: 82-year-old female with non diabetic peripheral neuropathy. Patient has been followed by Dr. Kelby Nascimento most recently for a ?blood blister? on her right great toe which appeared to be resolving clinically when last seen in January. Patient states that probably over the last week or 2 she has had a blister on her right great toe, but obviously had no pain due to her neuropathy. She states that on Wednesday before the weekend, she noticed increased size of the blister, drainage of clear bloody fluid, and increased redness of the toe and foot. She called Dr. Nascimento office and was instructed to soak the foot, she also got a prescription for antibiotics either from Dr. Nascimento or from her primary physician. Over the course of the weekend the symptoms progressed and she was seen in the emergency room early this morning and was admitted for treatment. Consultation requested. Patient has been afebrile and has no signs of systemic illness. PFSH Medical History COPD (chronic obstructive pulmonary disease) (Acute) GERD (gastroesophageal reflux disease) (Acute) Hyperlipidemia (Acute) Hypertension (Acute) Morbid obesity (Acute) Neuropathy (Acute) Surgical History H/O foot surgery (Acute) History of aortic valve replacement History of hip replacement History of knee replacement History of knee replacement Status post hysterectomy Family History Sister Dementia Sister Glioblastoma Brother Abdominal aortic aneurysm Brother Cancer Social History household members: none Smoking Status: Never smoker Meds Home Medications Medication Instructions Recorded Confirmed Type albuterol sulfate 2 puff INHALATION Q4-6H PRN 05/09/18 05/09/18 History aspirin 81 mg PO DAILY 05/09/18 05/09/18 History budesonide-formoterol [Symbicort] 2 puff INHALATION BID 05/09/18 05/09/18 History budesonide-formoterol [Symbicort] 2 puff INHALATION BID 05/09/18 05/09/18 History cholecalciferol (vitamin D3) 2,000 unit PO DAILY 05/09/18 05/09/18 History [Vitamin D3] coenzyme Q10 [Co Q-10] 100 mg PO DAILY 05/09/18 05/09/18 History cyanocobalamin (vitamin B-12) 1,000 mcg PO DAILY 05/09/18 05/09/18 History diclofenac sodium 75 mg PO BID 05/09/18 05/09/18 History duloxetine 30 mg PO DAILY 05/09/18 05/09/18 History estradiol 1 mg VAGINAL 2XW 05/09/18 05/09/18 History fenofibrate 150 mg PO DAILY 05/09/18 05/09/18 History fluticasone [Flonase Allergy 2 spray INTRANASAL DAILY 05/09/18 05/09/18 History Relief] furosemide [Lasix] 20 mg PO DAILY 05/09/18 05/09/18 History gabapentin 300 mg PO TID 05/09/18 05/09/18 History guaifenesin [Mucinex] 600 mg PO PRN PRN 05/09/18 05/09/18 History losartan 50 mg PO DAILY 05/09/18 05/09/18 History tdndtsxkzizv-Lr-rjqd-minerals 1 ea PO DAILY 05/09/18 05/09/18 History [Multiple Vitamin, Womens] omeprazole 20 mg PO DAILY 05/09/18 05/09/18 History polyethylene glycol 3350 [GlycoLax] 17 g PO DAILY 05/09/18 05/09/18 History pramipexole [Mirapex] 0.125 mg PO TID 05/09/18 05/09/18 History quinine sulfate 324 mg PO BEDTIME 05/09/18 05/09/18 History tiotropium bromide [Spiriva 2 puff INHALATION DAILY 05/09/18 05/09/18 History Respimat] Allergies Allergy/AdvReac Type Severity Reaction Status Date / Time amoxicillin [AMOXICILLIN] Allergy Unknown Rash Verified 05/08/18 22:07 cefaclor [From CECLOR] Allergy Unknown Rash Verified 05/08/18 22:07 cefpodoxime [CEFPODOXIME] Allergy Unknown Rash Verified 05/08/18 22:07 clavulanic acid Allergy Unknown Rash Verified 05/08/18 22:07 [From AUGMENTIN] levofloxacin [LEVOFLOXACIN] Allergy Unknown Rash Verified 05/08/18 22:07 Exam Vital Signs (past 8 hours): - 05/09/18 07:28 05/09/18 11:33 Temperature 97.0 F L 97.2 F L Pulse Rate 87 90 Respiratory Rate 20 17 Blood Pressure 129/61 149/92 H Pulse Oximetry 97 98 Oxygen Delivery Method Room Air Oxygen Flow Rate 0 Extrem Other: Exam of the right great toe demonstrates a large but intact blister over the medial side of the toe extending just past the medial edge of the toenail. There is clear fluid within the blister. There is a smaller lesion at the distal tip of the toe. Patient has no sensation in the toe. The toenail has the appearance of a fungal nail which is symmetric with the opposite side. There is no fluctuant mass or drainage. There is moderate erythema of the great toe and over the medial side of the foot. There are well-healed surgical incisions over the dorsal and medial side of the foot and toe. Objective Labs Result Diagrams: 05/09/18 02:20 05/09/18 02:20 Labs: Laboratory Results - last 24 hr 05/09/18 05/09/18 05/09/18 02:20 02:20 02:20 WBC 9.5 RBC 4.34 Hgb 11.8 L Hct 36.3 MCV 83.5 MCH 27.3 MCHC 32.7 RDW 16.3 H Plt Count 348 Neut % (Auto) Not Reportable Lymph % (Auto) Not Reportable [place] % (Auto) Not Reportable Eos % (Auto) Not Reportable Baso % (Auto) Not Reportable Total Counted 100 Seg Neutrophils % 52.0 Band Neutrophils % 4.0 Lymphocytes % (Manual) 33.0 Monocytes % (Manual) 7.0 Eosinophils % (Manual) 4.0 Neutrophils # (Manual) 5320 RBC Morphology Not Reportable Anisocytosis 1+ H Sodium 143 Potassium 4.5 Chloride 104 Carbon Dioxide 27 BUN 43 H Creatinine 2.00 H Estimated GFR 24.0 L BUN/Creatinine Ratio 21.5 Glucose 127 H Lactate 1.1 Calcium 10.2 Assessment & Plan Plan: Assessment/Plan Narrative: This patient with a somewhat acute on chronic right great toe infection. Probable cellulitis but possible deeper infection as well. After discussing and considering the treatment options we will have the patient continue on her IV antibiotics for a period of 48-72 hours and allow for either significant clinical improvement or demarcation of the deep infection. Dr. Nascimento is not available today but will involve him in the case as soon as he returns. Patient understands and agrees.
[2018-05-09] MEDS: PANTOPRAZOLE 20 MG TABLET PO (12:35)
[2018-05-09] MEDS: GABAPENTIN 300 MG CAPSULE PO ×2 (12:38→21:09)
[2018-05-09] MEDS: VANCOMYCIN 750 MG/150 ML FROZ.PIGGY 150 MG IV (13:04)
[2018-05-09 13:33] LABS: INR 1.1 (0.9-1.3); Prothrombin Time 11.5 SECONDS (10.1-12.7)
[2018-05-09 13:35] LABS: PTT Partial Thromboplastin Tim 31 SECONDS (26.4-36.2)
[2018-05-09] MEDS: ACETAMINOPHEN 325 MG TABLET 650 MG PO ×2 (16:47→21:52)
[2018-05-09] MEDS: PRAMIPEXOLE 0.125 MG TABLET PO (17:54)
[2018-05-09] MEDS: ASPIRIN EC 81 MG TABLET PO (21:09)
[2018-05-09] MEDS: OXYCODONE/ACETAMINOPHEN 5/325 TABLET 1 TAB PO (23:49)
[2018-05-10] VITALS (8 sets, daily range): BP systolic 128–155; BP diastolic 66–98; PULSE 82–94; RESP 16–22; TEMP 36.2–36.7; O2SAT 93–98
[2018-05-10] MEDS: SODIUM CHLORIDE 0.9% 1,000 ML 100 ML IV (04:03)
[2018-05-10] MEDS: CLINDAMYCIN 600 MG/50 ML PIGGYBACK 50 MG IV ×4 (05:44→22:51)
[2018-05-10] MEDS: ACETAMINOPHEN 325 MG TABLET 650 MG PO ×2 (06:45→17:57)
[2018-05-10 06:57] LABS: BUN Creatinine Ratio 25.4 (6-22); Blood Urea Nitrogen 33 mg/dL (7-17); Calcium 10.1 mg/dL (8.4-10.2); Carbon Dioxide 27 mmol/L (22-32); Chloride 109 mmol/L (98-107); Estimated Glomerular Filt Rate 39.4 mL/min (>60); Glucose 96 mg/dL (80-110); HEMOLYSIS 28 (0-50); Potassium 5.3 mmol/L (3.4-5.1); Sodium 144 mmol/L (137-145)
[2018-05-10] MEDS: DOCUSATE 100 MG CAPSULE PO ×2 (09:09→21:07)
[2018-05-10] MEDS: GABAPENTIN 300 MG CAPSULE PO ×2 (09:10→21:07)
[2018-05-10] MEDS: HEPARIN 5,000 UNIT/ML VIAL 5000 UNIT SUBCUT ×2 (09:10→21:08)
[2018-05-10] MEDS: PANTOPRAZOLE 20 MG TABLET PO (09:10)
[2018-05-10] MEDS: ALBUTEROL HFA 60 PUFF/8 GM INH INH (11:36)
[2018-05-10] MEDS: TIOTROPIUM BROMIDE 18 MCG INHALER INH (11:36)
[2018-05-10] MEDS: VANCOMYCIN 1,250 MG in SODIUM CHLORIDE 0.9% 250 ML IV (12:33)
--- NOTE | 2018-05-10 14:16 | CM.DPNOTE ---
DCP/Note: Reviewed chart. Patient seen by orthopedics and currently is on IV abx. Spoke with Dr. Beth this AM and it is undetermined if patient will require it application support analyst abx. Podiatry input expected to provide input tomorrow 05-11-18. P: Pending decision made by medical team on treatment. CM team to follow closely. MARISSA Godinez
[2018-05-10] MEDS: LACTATED RINGERS 1,000 ML 84 ML IV ×2 (14:53→20:49)
--- NOTE | 2018-05-10 15:20 | PM.CN ---
History of Present Illness Date Patient Seen: 05/10/18 Time Patient Seen: 15:10 Chief complaint: RED, HOT SWELLING RT FOOT Narrative: Maribel is a long-time patient of mine. I was advised this morning that She had been admitted to the hospital within the last day or 2. she states on Wednesday she noticed a blister on her toe that got larger and then the foot more and more red over the weekend. She went to the emergency room, was admitted and put on IV antibiotics. She cannot recall any specific change in activities or shoe gear that preceded or started this problem. She has profound peripheral sensory neuropathy, and is not complaining of any pain in the foot. [facility] Medical History COPD (chronic obstructive pulmonary disease) (Acute) GERD (gastroesophageal reflux disease) (Acute) Hyperlipidemia (Acute) Hypertension (Acute) Morbid obesity (Acute) Neuropathy (Acute) Surgical History H/O foot surgery (Acute) History of aortic valve replacement History of hip replacement History of knee replacement History of knee replacement Status post hysterectomy Family History Sister Dementia Sister Glioblastoma Brother Abdominal aortic aneurysm Brother Cancer Social History household members: none Smoking Status: Never smoker Meds Home Medications Medication Instructions Recorded Confirmed Type albuterol sulfate 2 puff INHALATION Q4-6H PRN 05/09/18 05/09/18 History aspirin 81 mg PO DAILY 05/09/18 05/09/18 History budesonide-formoterol [Symbicort] 2 puff INHALATION BID 05/09/18 05/09/18 History budesonide-formoterol [Symbicort] 2 puff INHALATION BID 05/09/18 05/09/18 History cholecalciferol (vitamin D3) 2,000 unit PO DAILY 05/09/18 05/09/18 History [Vitamin D3] coenzyme Q10 [Co Q-10] 100 mg PO DAILY 05/09/18 05/09/18 History cyanocobalamin (vitamin B-12) 1,000 mcg PO DAILY 05/09/18 05/09/18 History diclofenac sodium 75 mg PO BID 05/09/18 05/09/18 History duloxetine 30 mg PO DAILY 05/09/18 05/09/18 History estradiol 1 mg VAGINAL 2XW 05/09/18 05/09/18 History fenofibrate 150 mg PO DAILY 05/09/18 05/09/18 History fluticasone [Flonase Allergy 2 spray INTRANASAL DAILY 05/09/18 05/09/18 History Relief] furosemide [Lasix] 20 mg PO DAILY 05/09/18 05/09/18 History gabapentin 300 mg PO TID 05/09/18 05/09/18 History guaifenesin [Mucinex] 600 mg PO PRN PRN 05/09/18 05/09/18 History losartan 50 mg PO DAILY 05/09/18 05/09/18 History zcaonssemgsi-Wm-mppy-minerals 1 ea PO DAILY 05/09/18 05/09/18 History [Multiple Vitamin, Womens] omeprazole 20 mg PO DAILY 05/09/18 05/09/18 History polyethylene glycol 3350 [GlycoLax] 17 g PO DAILY 05/09/18 05/09/18 History pramipexole [Mirapex] 0.125 mg PO TID 05/09/18 05/09/18 History quinine sulfate 324 mg PO BEDTIME 05/09/18 05/09/18 History tiotropium bromide [Spiriva 2 puff INHALATION DAILY 05/09/18 05/09/18 History Respimat] Allergies Allergy/AdvReac Type Severity Reaction Status Date / Time amoxicillin [AMOXICILLIN] Allergy Unknown Rash Verified 05/08/18 22:07 cefaclor [From CECLOR] Allergy Unknown Rash Verified 05/08/18 22:07 cefpodoxime [CEFPODOXIME] Allergy Unknown Rash Verified 05/08/18 22:07 clavulanic acid Allergy Unknown Rash Verified 05/08/18 22:07 [From AUGMENTIN] levofloxacin [LEVOFLOXACIN] Allergy Unknown Rash Verified 05/08/18 22:07 Exam Vital Signs (past 8 hours): - 05/10/18 07:35 05/10/18 11:45 Temperature 98.0 F 97.6 F Pulse Rate 83 85 Respiratory Rate 16 16 Blood Pressure 134/70 138/87 Pulse Oximetry 97 96 Oxygen Delivery Method Room Air Oxygen Flow Rate 0 Extrem Other: Examination of the right foot shows a large bulla or blister over the medial side of the right hallux, measuring approximately 3-5 cm in length, 2-3 cm in width. It is filled with a watery clear straw colored solution, not purulent , and without malodor. The surrounding foot demonstrates some edema but she has moderate bilateral chronic foot and ankle edema. There is no advancing cellulitis, there is no sign of any streaking. She has a tiny little scab, looks like a healed abrasion, at the distal-medial tip of the right hallux, that may indicate the potential entrance wound that started this cellulitis. Patient has known and demonstrable peripheral sensory neuropathy in the feet. Great toe itself, other than the blistering, does not appear to be significantly swollen. The foot is not hot or red, But rather is just slightly cooler than the unaffected left foot. Objective Labs Result Diagrams: 05/09/18 02:20 05/10/18 06:30 Labs: Laboratory Results - last 24 hr 05/10/18 06:30 Sodium 144 Potassium 5.3 H Chloride 109 H Carbon Dioxide 27 BUN 33 H Creatinine 1.30 H Estimated GFR 39.4 L BUN/Creatinine Ratio 25.4 H Glucose 96 Calcium 10.1 Assessment & Plan Plan: Assessment/Plan Narrative: I did go ahead and lanced and drained that large fluid-filled blister on her toe and then re-dressed things and a nice gauze wrap. Should keep that clean and dry. Patient seems to be on appropriate IV antibiotics, as she states the cellulitis is significantly reduced, in fact today on examination I do not see any margin of cellulitis. She stated that the hospitalist mentioned That she may be another day and a half on the antibiotics and then discharged home. I would agree with that plan. She already has an appointment to see me this week Wednesday in my [place] office.
--- NOTE | 2018-05-10 17:51 | P.PN_ITS ---
Subjective Date Patient Seen: 05/10/18 Interval history: No complaints. She has no foot pain, nausea, or diarrhea Exam Vital Signs (past 8 hours): - 05/10/18 11:45 05/10/18 15:00 Temperature 97.6 F 97.7 F Pulse Rate 85 94 H Respiratory Rate 16 20 Blood Pressure 138/87 151/94 H Pulse Oximetry 96 98 Oxygen Delivery Method Room Air Oxygen Flow Rate 0 Narrative Exam Narrative: Lungs: Clear to auscultation CV:RRR nl Sl S2 Abd: soft/ nontender/ nondistended Ext: right foot with improved swelling and erythema , large blister on great toe still in tact Objective Labs Result Diagrams: 05/09/18 02:20 05/10/18 06:30 Labs: Laboratory Results - last 24 hr 05/10/18 06:30 Sodium 144 Potassium 5.3 H Chloride 109 H Carbon Dioxide 27 BUN 33 H Creatinine 1.30 H Estimated GFR 39.4 L BUN/Creatinine Ratio 25.4 H Glucose 96 Calcium 10.1 Assessment & Plan (1) Acute exacerbation of chronic obstructive pulmonary disease (COPD): Problem details: continue usual inhalers Current visit: Yes Status: Acute (2) Hyperlipidemia: Problem details: hold fenofibrate given renal insufficiency Current visit: Yes Status: Acute (3) Hypertension: Problem details: Hold Lasix and losartan for now. Will follow Current visit: Yes Status: Acute (4) Acute renal failure: Problem details: Suspect this is prerenal related to Lasix, MOO-I, and Bactrim. Will continue IVF , hold Lasix, hold Moo-I Patient still receiving IV hydration, repeat Basic metabolic panel in am, hold nephrotoxic drugs Current visit: Yes Status: Acute (5) Cellulitis and abscess of toe of right foot: Problem details: Will continue Clindamycin, start vancomycin. Ortho/Podiatry consult-may need I/ D of toe at the least. further recommendations pending their consult No I/D indicated, will continue antibiotics Current visit: Yes Status: Acute
[2018-05-10] MEDS: FLUTICASONE 120 SPRAY/16 GM SPRAY.SUSP NASAL (21:07)
[2018-05-10] MEDS: ASPIRIN EC 81 MG TABLET PO (21:07)
[2018-05-10] MEDS: PRAMIPEXOLE 0.125 MG TABLET 0.25 MG PO (21:08)
[2018-05-10] MEDS: OXYCODONE IR 5 MG TABLET PO (23:50)
[2018-05-11] VITALS: O2SAT 97
[2018-05-11] MEDS: ACETAMINOPHEN 325 MG TABLET 650 MG PO ×2 (02:11→10:39)
[2018-05-11 05:00] VITALS: BP 138/75; PULSE 80; RESP 18; TEMP 36.2; O2SAT 97
[2018-05-11] MEDS: CLINDAMYCIN 600 MG/50 ML PIGGYBACK 50 MG IV ×2 (06:02→10:40)
[2018-05-11 06:22] LABS: Hematocrit 34.9 % (36-46); Hemoglobin 11.5 g/dL (12.0-16.0); Mean Corpuscular Hemoglobin 27.6 PG (26-34); Mean Corpuscular Volume 83.6 fL (80-100); Platelet Count 320 X10^3/uL (150-400); Red Blood Cell Count 4.17 X10^6/uL (4.0-5.2); Red Cell Distribution Width 16.3 % (11.6-14.8); White Blood Cell Count 7.9 X10^3/uL (4.5-11.0)
[2018-05-11 06:27] LABS: BUN Creatinine Ratio 26.4 (6-22); Blood Urea Nitrogen 29 mg/dL (7-17); Calcium 10.4 mg/dL (8.4-10.2); Carbon Dioxide 26 mmol/L (22-32); Chloride 108 mmol/L (98-107); Estimated Glomerular Filt Rate 47.8 mL/min (>60); Glucose 112 mg/dL (80-110); HEMOLYSIS < 15 (0-50); Potassium 4.8 mmol/L (3.4-5.1); Sodium 143 mmol/L (137-145)
[2018-05-11 06:31] LABS: Add Manual Diff / Slide Review YES
[2018-05-11 06:43] LABS: Neutrophils Absolute Manual 4582 /uL (3000-5900); Total Cells Counted 100
[2018-05-11 06:44] LABS: Anisocytosis 1+
[2018-05-11 07:00] VITALS: O2SAT 96
[2018-05-11 07:55] VITALS: BP 149/94; PULSE 81; RESP 17; TEMP 36.6; O2SAT 96
[2018-05-11 09:00] VITALS: PULSE 81; RESP 14; O2SAT 96
[2018-05-11] MEDS: TIOTROPIUM BROMIDE 18 MCG INHALER INH (09:00)
[2018-05-11] MEDS: DOCUSATE 100 MG CAPSULE PO (10:32)
[2018-05-11] MEDS: GABAPENTIN 300 MG CAPSULE PO (10:32)
[2018-05-11] MEDS: PANTOPRAZOLE 20 MG TABLET PO (10:32)
[2018-05-11] MEDS: HEPARIN 5,000 UNIT/ML VIAL 5000 UNIT SUBCUT (10:32)
[2018-05-11 11:05] VITALS: BP 154/79; PULSE 93; RESP 19; TEMP 36.6; O2SAT 100
[2018-05-11] MEDS: LACTATED RINGERS 1,000 ML 84 ML IV (11:12)
--- NOTE | 2018-05-11 12:36 | PM.DS.1 ---
History of Present Illness Chief complaint: RED, HOT SWELLING RT FOOT Narrative: Patient noted swelling and redness of the right great toe on wednesday, 3 days prior to admission. She was seen by her PCP and given bactrim. She took a few doses but noted the toe became more red, with redness speading up her foot. She presented to the ED for evaluation. Patient reports no fever, no pain, no nausea, or chills. She has neuropathy and has no feeling in the foot. She has no prior history of cellulitis to the area. She has had multiple surgeries to the foot. Patient reports chronic shortness of breath and wheezing, no chest pain, nausea, vomiting , or diarrhea. No dysruia, hematuria, or pyuria. Patient reports she has arthritis and has pain all over. Discharge Providers Date of admission: 05/09/18 03:45 Primary care physician: Rosy Lowery PA-C Consults: 05/09/18 04:24 Consult to Physician Routine Comment: Consulting Provider: Marc Rodriguez Reason for consultation: admission Discharge provider: Fely Beth MD Summary Discharge Diagnosis: Cellulits and abscess of right great toe COPD COPD (chronic obstructive pulmonary disease) (Acute) GERD (gastroesophageal reflux disease) (Acute) Hyperlipidemia (Acute) Acute Renal Failure-resolved Hypertension (Acute) Morbid obesity (Acute) Neuropathy (Acute Exam Vital Signs (past 8 hours): - 05/11/18 05:00 05/11/18 07:00 05/11/18 07:55 Temperature 97.2 F L 97.9 F Pulse Rate 80 81 Respiratory Rate 18 17 Blood Pressure 138/75 149/94 H Pulse Oximetry 97 96 96 05/11/18 09:00 05/11/18 11:05 Temperature 98 F Pulse Rate 81 93 H Respiratory Rate 14 19 Blood Pressure 154/79 H Pulse Oximetry 96 100 Fraction of Inspired Oxygen 21 Oxygen Delivery Method Room Air Oxygen Flow Rate 0 Narrative Exam Narrative: Pleasant female in no acute distress Direct exam: Right foot with decreased erythema Blister on lateral aspect of toe open and draining clear fluid. No warmth Objective Labs Result Diagrams: 05/11/18 06:05 05/11/18 06:05 Labs: Laboratory Results - last 24 hr 05/11/18 05/11/18 06:05 06:05 WBC 7.9 RBC 4.17 Hgb 11.5 L Hct 34.9 L MCV 83.6 MCH 27.6 MCHC 33.0 RDW 16.3 H Plt Count 320 Neut % (Auto) Not Reportable Lymph % (Auto) Not Reportable Teller % (Auto) Not Reportable Eos % (Auto) Not Reportable Baso % (Auto) Not Reportable Total Counted 100 Seg Neutrophils % 55.0 Band Neutrophils % 3.0 Lymphocytes % (Manual) 29.0 Monocytes % (Manual) 5.0 Eosinophils % (Manual) 7.0 H Basophils % (Manual) 1.0 Neutrophils # (Manual) 4582 RBC Morphology See below Anisocytosis 1+ H Sodium 143 Potassium 4.8 Chloride 108 H Carbon Dioxide 26 BUN 29 H Creatinine 1.10 H Estimated GFR 47.8 L BUN/Creatinine Ratio 26.4 H Glucose 112 H Calcium 10.4 H Discharge Plan Discharge Plan Patient Disposition: Home Discharge comment: follow up with Dr. Nascimento as scheduled Wednesday Discharge Med Rec/Prescriptions Prescriptions: New clindamycin HCl 300 mg capsule 600 mg PO TID 5 Days Qty: 30 RF: 0 Continue losartan 50 mg Tablet 50 mg PO DAILY RF: 0 aspirin 81 mg Tablet,Delayed Release (Dr/Ec) 81 mg PO DAILY RF: 0 pramipexole [Mirapex] 0.125 mg Tablet 0.125 mg PO TID RF: 0 gabapentin 300 mg Capsule 300 mg PO TID RF: 0 omeprazole 20 mg Capsule,Delayed Release(Dr/Ec) 20 mg PO DAILY RF: 0 diclofenac sodium 75 mg Tablet,Delayed Release (Dr/Ec) 75 mg PO BID RF: 0 furosemide [Lasix] 20 mg Tablet 20 mg PO DAILY RF: 0 polyethylene glycol 3350 [GlycoLax] 17 gram/dose Powder 17 g PO DAILY RF: 0 albuterol sulfate 90 mcg/actuation Hfa Aerosol Inhaler 2 puff INHALATION Q4-6H PRN (Reason: Shortness Of Breath Or Wheezing) RF: 0 fluticasone [Flonase Allergy Relief] 50 mcg/actuation [place],Suspension 2 spray INTRANASAL DAILY RF: 0 atwqmkuhrvpk-Cd-baow-minerals [Multiple Vitamin, Womens] Tablet 1 ea PO DAILY RF: 0 coenzyme Q10 [Co Q-10] 100 mg Capsule 100 mg PO DAILY RF: 0 duloxetine 30 mg Capsule,Delayed Release(Dr/Ec) 30 mg PO DAILY RF: 0 quinine sulfate 324 mg Capsule 324 mg PO BEDTIME RF: 0 budesonide-formoterol [Symbicort] 160-4.5 mcg/actuation Hfa Aerosol Inhaler 2 puff INHALATION BID RF: 0 budesonide-formoterol [Symbicort] 160-4.5 mcg/actuation Hfa Aerosol Inhaler 2 puff INHALATION BID RF: 0 fenofibrate 150 mg Capsule 150 mg PO DAILY RF: 0 cholecalciferol (vitamin D3) [Vitamin D3] 2,000 unit Capsule 2,000 unit PO DAILY RF: 0 guaifenesin [Mucinex] 600 mg Tablet Extended Release 12hr 600 mg PO PRN PRN (Reason: Secretions) RF: 0 tiotropium bromide [Spiriva Respimat] 1.25 mcg/actuation Mist 2 puff INHALATION DAILY RF: 0 cyanocobalamin (vitamin B-12) 1,000 mcg Capsule 1,000 mcg PO DAILY RF: 0 estradiol 1 mg Vaginal 2XW RF: 0 Follow up/Referrals: Rosy Lowery PA-C [Primary Care Provider] - (please call and schedule hospital follow up appointment w/kvng brock [phone]) Visit Report/Discharge Packet Visit Report Forms: Stroke Signs & Symptoms Discharge Data Primary Care Provider: Rosy Lowery Attending Provider: Marc Rodriguez Admpiper Date/Time: 05/09/18 03:45
--- NOTE | 2018-05-11 14:07 | CM.DPC ---
DCP Discharge Home Per MD, pt is medically stable to d/c home today on oral medications and no identified barriers to discharge. Plan: Patient to d/c home today via POV and oral medications, no SW needs at this time. MARISSA Burnette
== END 2018-05-11 15:03 | disposition home or self-care (01) ==
LOC: ED 05-09 03:10 → AC 05-09 03:45
PROVIDERS: Internal Medicine; Admitting Provider Internal Medicine; Emergency Provider Emergency Medicine; Family Provider Student in an Organized Health Care Education/Training Program; PCP Student in an Organized Health Care Education/Training Program; Visit Provider Internal Medicine
DX: L03.031 Cellulitis of right toe (principal); L02.611 Cutaneous abscess of right foot; I10 Essential (primary) hypertension; E78.5 Hyperlipidemia, unspecified; E66.01 Morbid (severe) obesity due to excess calories; G62.9 Polyneuropathy, unspecified; J44.1 Chronic obstructive pulmonary disease with (acute) exacerbation; K21.9 Gastro-esophageal reflux disease without esophagitis
CPT/HCPCS: 36415; 36569; 36591; 36592; 73630; 80048; 83605; 85025; 85610; 85730; 87040; 94640; 94760; 96365; 96366; 99283; 99284; G0378; J1644; J3370

== ENCOUNTER → 2018-05-24 10:33 | Outpatient (CLI) | payer MEDICARE, OTHER, SELFPAY ==
[2018-05-09 04:15] VITALS: BMI 43.5
--- NOTE | 2018-05-24 | OV.WND_ITS ---
Progress Note Details Maribel Marina Date: Patient Name: Skylar Patient Number: Clini [id number] Patient Date of : 1935 Clini Patient Account [id number] Number: Physi Exten 05/24/2018 kian Rivas: Heavenly langston Cosigner: Edelmira Novak / marcie: Eber Rogers SUBJECTIVE Chief Complaint This information was obtained from the patient Ulcer on right great toe. Allergies Levaquin (Severity: Severe, Reaction: rash/hives), cefaclor (Severity: Severe, Reaction: rash), cefpodoxime proxetil (Severity: Severe, Reaction: hives), metoprolol (Severity: Severe, Reaction: constant headache/insomnia/GI intolerance), oxybutynin (Severity: Moderate, Reaction: fatigue) HPI This information was obtained from the patient 05/24/18. Seen by Dr. Rogers. The patient's new to our clinic and presents with a chronic, right 1st toe non-pressure ulcer that started following an episode of cellulitis a few weeks ago. She's been on two courses of antibiotics and feels the drainage and redness have resolved. Family History This information was obtained from the patient Cancer - Mother, Father, Sibling, Hypertension - Mother, Father, Lung Disease - Father, Sibling Social History This information was obtained from the patient Never smoker, Alcohol Use - 1-2 weekly, Caffeine Use - Coffee- 1-2/day, Children - 1, Lives in - Private home, Marital Status - , Retired Surgical History This information was obtained from the patient Patient has a surgical history of: R foot arch repair Subtalar fusion Total Knee Replacment (bilateral) Knee revision (Right side x 2) Left Hip Replacement Hysterectomy Aortic Valve Replacement Complaints and Symptoms This information was obtained from the patient Patient complains of: General Notes: I have reviewed and concur with the Review of Systems and Past Family Social History documents completed by the clinician, I have reviewed and concur with the Wound Assessment document completed by the clinician Cardiovascular (Central/Peripheral): Lower extremity (leg) swelling Ear/Nose/Mouth/Throat: Hearing Loss / Aid Hematologic/Lymphatic: Bleeding Tendency Integumentary (Hair/Skin/Nails): Open Sore Musculoskeletal: Assistive Devices Prior Wound History: Drainage, Erythema Patient denies complaints or symptoms related to: Cardiovascular (Central/Peripheral): Intermittent Claudication, Lower extremity (leg) resting pain Hematologic/Lymphatic: Bleeding / Clotting Disorders Prior Wound History: Pain General Notes: Up to date. OBJECTIVE Constitutional BP elevated; Afebrile; Alert and in no distress. Well developed. Alert. Clean appearing.. Height/Length: 66 in (167.64 cm), Weight: 275.5 lbs (125.23 kgs), BMI: 44.5, Temperature: 97.4 ?F (36.33 ?C), Pulse: 92 bpm, Respiratory Rate: 20 breaths/min, Blood Pressure: 143/84 mmHg, Pulse Oximetry: 96 %. Cardiovascular: 1+ right lower extremity edema. Gastrointestinal (GI): Obese. Nondistended.. Integumentary (Hair, Skin) No periwound erythema, warmth, or significant drainage. No periwound rashes appreciated or noted otherwise.. Refer to appropriate clinician wound documentation for this visit. Moderate amount of callus in the periulcer area. Wound #1 Right Great Toe is an acute Full Thickness Neuropathic Ulcer and has received a status of Not Healed. Initial wound encounter measurements are 3cm length x 1.4cm width x 0.1cm depth, with an area of 4.2 sq cm and a volume of 0.42 cubic cm. No tunneling has been noted. No sinus tract has been noted. No undermining has been noted. There is a moderate amount of serosanguineous drainage noted which has no odor. The patient reports no wound pain due to the wound being insensate. The wound margin is attached. Wound bed has No epithelialization, Yes eschar, Yes slough, Yes pink, firm granulation. The periwound skin texture is normal. The periwound skin color is normal. The periwound skin exhibited: Moist. The periwound skin did not exhibit: Dry/Scaly, Maceration. The temperature of the periwound skin is WNL. Periwound skin does not exhibit signs or symptoms of infection. Local Pulse is Palpable. Neurological: Cranial nerves grossly intact with symmetric function normal by informal observation.. 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 A selective debridement with a total area debrided of 2.25 sq cm was performed by Eber Rogers MD. to remove devitalized tissue: exudate, necrotic/eschar, and slough. The following instrument(s) were used: curette. No anesthetic was required due to loss of sensation. A time out was conducted prior to the start of the procedure. A minimal amount of bleeding was controlled with pressure. The procedure was tolerated well with a loss of sensation throughout and a loss of sensation following the procedure. Post Debridement Measurements: 2.5cm length x 0.9cm width x 0.2cm depth; with an area of 2.25 sq cm and a volume of 0.45 cubic cm; PLAN Wound Orders: Wound #1 Right Great Toe Cleanser Cleanse Wound: - Distilled water and gauze. May Shower. - Use cast protector (purchased at [employer]). Dressings Cover and secure with: - Foam cut to cover, secured with hypafix tape. Change Dressing: - Every three days. Additional Orders: Off-Loading Use/Wear when Walking: - Post-op shoe. Follow-Up Appointments Return Appointment: - - One week. Other information: If you develop fever, chills, increased pain, drainage, redness or swelling please call our office. If after hours, respond to the ER. Should you experience any significant changes in your wound(s) or have any questions regarding your home care instructions please contact the wound center @ [phone]. If after hours, contact your primary care physician or go to the hospital emergency room. Scribing Attestation I attest, as the nurse, that I scribed these orders for the physician. I've reviewed the clinician's documentation and agree with the evaluation and plan as written. In addition, the patient's ulcer demonstrates evidence of non-viable devitalized tissue which will continue to benefit from sharp debridement to help promote granulation and expedite healing. Electronic Signature(s) Signed By: Date: Eber Rogers MD 05/25/2018 06:59:08 Entered By: Eber Rogers on 05/25/2018 06:41:12
== END ==
PROVIDERS: Family Provider Student in an Organized Health Care Education/Training Program; PCP Student in an Organized Health Care Education/Training Program; Visit Provider Internal Medicine
DX: L97.511 Non-pressure chronic ulcer of other part of right foot limited to breakdown of skin (principal)
CPT/HCPCS: 97597; 99213

== ENCOUNTER → 2018-05-30 11:07 | Outpatient (CLI) | payer MEDICARE, OTHER, SELFPAY ==
[2018-05-09 04:15] VITALS: BMI 43.5
== END ==
PROVIDERS: Family Provider Student in an Organized Health Care Education/Training Program; PCP Student in an Organized Health Care Education/Training Program; Visit Provider Family Medicine
DX: G90.9 Disorder of the autonomic nervous system, unspecified (principal); L84 Corns and callosities; Z48.817 Encounter for surgical aftercare following surgery on the skin and subcutaneous tissue; L97.511 Non-pressure chronic ulcer of other part of right foot limited to breakdown of skin
CPT/HCPCS: 11055; 99213

== ENCOUNTER → 2018-06-01 11:57 | Outpatient (CLI) | payer MEDICARE, OTHER, SELFPAY ==
[2018-05-09 04:15] VITALS: BMI 43.5
[2018-06-01 15:36] LABS: Alanine Aminotransferase 24 IU/L (9-52); Albumin 4.3 g/dL (3.5-5.0); Albumin Globulin Ratio 1.7 (1.0-2.8); Alkaline Phosphatase 50 U/L (38-126); Aspartate Aminotransferase 24 IU/L (14-36); Bilirubin Total 0.5 mg/dL (0.2-1.3); Blood Urea Nitrogen 34 mg/dL (7-17); Calcium 10.1 mg/dL (8.4-10.2); Carbon Dioxide 27 mmol/L (22-32); Chloride 103 mmol/L (98-107); Estimated Glomerular Filt Rate 53.3 mL/min (>60); Globulin 2.5 g/dL (1.7-4.1); Glucose 96 mg/dL (80-110); HEMOLYSIS < 15 (0-50); Potassium 4.6 mmol/L (3.4-5.1); Sodium 141 mmol/L (137-145); Total Protein 6.8 g/dL (6.3-8.2)
== END ==
PROVIDERS: Family Provider Student in an Organized Health Care Education/Training Program; PCP Student in an Organized Health Care Education/Training Program; Visit Provider Student in an Organized Health Care Education/Training Program
DX: I10 Essential (primary) hypertension (principal); E78.5 Hyperlipidemia, unspecified
CPT/HCPCS: 36415; 80053

== ENCOUNTER 2020-04-16 13:00 | Outpatient (RCR) | payer MEDICARE, OTHER, SELFPAY ==
[2018-05-09 04:15] VITALS: BMI 43.5
--- NOTE | 2019-08-15 16:30 | PT.OIE ---
Current Diagnoses Other abnormalities of gait and mobility (08/15/19) Past Medical History (Last Reviewed 05/10/18 @ 15:21 by Kelby Nascimento DPM) COPD (chronic obstructive pulmonary disease) (Acute) GERD (gastroesophageal reflux disease) (Acute) Hyperlipidemia (Acute) Hypertension (Acute) Morbid obesity (Acute) Neuropathy (Acute) Past Surgical History (Last Reviewed 05/10/18 @ 15:21 by Kelby Nascimento DPM) H/O foot surgery (Acute) History of aortic valve replacement History of hip replacement History of knee replacement History of knee replacement Status post hysterectomy Visit Care Team Role Provider Type Rosy Lowery PA-C Attending Provider Physician Family Provider Primary Care Provider Specialty: Internal Medicine Address: [address] [place] [address], [facility] Email: [email or web address] Physical Therapy Initial Evaluation PT-OP-A Visit Information Start: 08/15/19 08:03 Freq: Status: Active Protocol: Document 08/15/19 08:11 SAK (Rec: 08/15/19 08:50 SAK [id number]) Out-Patient Physical Therapy Visit Information Visit Information Visit Type Initial Evaluation Visit Start Time 08:15 Visit Stop Time 09:00 Total Visit Minutes 45 Visit Number 1 Number of SUPERVISOR PERSONNEL CLERKS Visits 0 Evaluation Information Evaluation Date 08/15/19 PT-OP-B Current Condition Start: 08/15/19 08:03 Freq: Status: Active Protocol: Document 08/15/19 08:11 SAK (Rec: 08/15/19 08:50 SAK [id number]) Current Condition History of Current Condition Onset Date 10+ years Current Complaints poor balance with multiple falls History of Current Condition Reports long history of gradual decrease in strength and balance with multiple falls, legs give out, UEs not able to hold self up. Poor activity level with limited ability to stand or walk due to weakness and LBP. Has had a hard time getting out of house. Removal of parathyroid gland earlier this year has resulted in increase in weight . 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 Wears orthotics majority of the time. Uses cane and 4WW. Going to be measured for custom compression stockings at [facility]. Uses heat for LBP, arthritis Tylenol. Prior Treatments and Tests H/O foot surgery History of aortic valve replacement History of hip replacement History of knee replacement History of knee replacement Status post hysterectomy COPD (chronic obstructive pulmonary disease) GERD (gastroesophageal reflux disease) Hyperlipidemia Hypertension Morbid obesity Neuropathy Treatment Goals Patient/Caregiver Goals Hoping to gain more strength, be able to tolerate standing and walking, better balance. 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 arthritis in her hands Functional Limitations- Recreation/ unable to make art or go to [id number] art [employer] Personal Factors Other Personal Factors That May Effect SOB, arthritis throughout, Therapy/Recovery including hands PT-OP-C Subjective Start: 08/15/19 08:03 Freq: Status: Active Protocol: Document 08/15/19 08:11 [facility] (Rec: 08/15/19 08:50 [facility] [id number]) OP-PT Pain Assessment Location gabby knees, LBP Intensity 8 Pain Aggravating Factors Activity,Standing,Walking Home Pain Medication Use Pain Medications Used Yes Pain Behaviors Pain Behaviors Facial Grimacing,[place] PT-OP-H Neuro Start: 08/15/19 08:03 Freq: Status: Active Protocol: Document 08/15/19 08:11 SAK (Rec: 08/15/19 08:50 [facility] [id number]) Sensation Evaluation Gross Sensation Gross Sensation Left LE Impaired,Right LE Impaired Sensation Description Paresthesia,Numbness PT-OP-K Range of Motion Start: 08/15/19 08:03 Freq: Status: Active Protocol: Document 08/15/19 08:11 SAK (Rec: 08/15/19 08:50 SAK [id number]) Lumbar Spine Range of Motion Lumbar Spine Active ROM Limitations Pain Hip Goniometric Range of Motion Hip gabby Hip ROM WFL Yes Knee Goniometric Range of Motion Knee ROM Limitations Knee ROM Limitations Pain Comments genu valgus right Ankle and Foot Goniometric Range of Motion Ankle and Foot gabby Dorsiflexion with Knee Flexed 0 PT-OP-M Strength Start: 08/15/19 08:03 Freq: Status: Active Protocol: Document 08/15/19 08:11 [facility] (Rec: 08/15/19 08:50 [facility] [id number]) Trunk Strength Trunk Manual Muscle Testing Flexion 2- Poor- Extension 2- Poor- Hip Strength Hip Manual Muscle Testing gabby Flexion (L2) 3+ Fair+ Extension (S1) 2 Poor Abduction 2 Poor Adduction 2 Poor External Rotation 2- Poor- Internal Rotation 2- Poor- Knee Strength Knee Manual Muscle Testing gabby Flexion (S2) 4- Good- Extension (L3) 4- Good- Ankle/Foot Strength Ankle and Foot Manual Muscle Testing gabby Dorsiflexion (L4) 3+ Fair+ Plantarflexion (S1) 4- Good- PT-OP-Q Treatments Start: 08/15/19 08:03 Freq: Status: Active Protocol: Document 08/15/19 08:11 YESSENIA (Rec: 08/15/19 16:30 [facility] [id number]) Self-Care/Home Management Treatment Education Patient Education Home Exercise Program Other Education explore videos for seated exercise program PT-OP-T Assessment and Plan Start: 08/15/19 08:03 Freq: Status: Active Protocol: Document 08/15/19 08:11 [facility] (Rec: 08/15/19 08:50 [facility] [id number]) Physical Therapy Assessment Rehab Potential Rehabilitation Potential Fair Evaluation Complexity Number of Personal Factors/Comorbidities 3 or More Number of Body Systems Impaired 3 Clinical Presentation at Evaluation Evolving Impairments Impairments Activity Tolerance,Balance, Strength Goals Four Impairment activity tolerance Electronic Controls Repairer Supervisor Goal (LTG) Patient to tolerate 45 minute aquatic exercise program without increase in pain or excess fatigue and be independent in aquatic ex program for fci fitness and pain management. Three Impairment Gait: limited to household, very short distance community (<250') Short Term Goal (STG) Patient able to walk 500' with 4WW before requiring a rest break STG Duration 6 wks Electronic Controls Repairer Supervisor Goal (LTG) Patient able to tolerate 10-15 min of standing and walking to allow her to do brief shopping trips before needing to sit down for rest break LTG Duration 12 wks Two Impairment weakness bilateral LE's Short Term Goal (STG) Patient to be independent and compliant with HEP to include use of a video for increased compliance. STG Duration 6 wks Electronic Controls Repairer Supervisor Goal (LTG) Patient to demonstrate improvement in LE strength by 1 grade throughout to improve her functional mobility and safety LTG Duration 12 wks One Impairment balance dysfunction with multiple falls, high fall risk category Short Term Goal (STG) No reported falls STG Duration 6 wks Nursing Home Goal (LTG) Patient to demonstrate a improvement in her score on Tinettti gait and balance assessment from high fall risk to no greater than moderate fall risk LTG Duration 12 wks Assessment Summary Assessment Patient presents with function -limiting weakness and balance dysfunction, significantly worsened since last seen by this PT. She has poor activity tolerance and has had multiple falls. Her functional status is complicated by bilateral LE neuropathy as well as weight gain. She would benefit from physical therapy starting in aquatic therapy and progressing to land-based PT as well, with emphasis on home program and strategies to ensure patient able to continue with HEP and aquatic exercise at discharge Physical Therapy Plan Frequency and Duration Frequency of Treatment 2x/wk Duration of Treatment 12 wks Plan of Care Start Date 08/15/19 Plan of Care End Date 11/13/19 Therapeutic Interventions Therapeutic Interventions Aquatic Therapy,Balance Training,Gait Training,Home Exercise Program,Manual Therapy,Neuromuscular Re- education,Patient/Caregiver Education,Self-Care/Home Management,Therapeutic Activities,Therapeutic Exercises Modalities Cold Pack/Ice Massage,Electric Stimulation,Hot Packs Next Visit Focus/Plan Next Note Type Treatment Note Next Visit Plan Initiate aquatic therapy
--- NOTE | 2019-08-15 16:31 | PT.OPPOC ---
Physical, Occupational & Speech Therapy At [facility] Current Diagnoses Other abnormalities of gait and mobility (08/15/19) Visit Care Team Role Provider Type Rosy Lowery PA-C Attending Provider Physician Family Provider Primary Care Provider Specialty: Internal Medicine Address: [address] [place] [address], [id number] Email: [email or web address] Plan Of Care PT-OP-T Assessment and Plan Start: 08/15/19 08:03 Freq: Status: Active Protocol: Document 08/15/19 08:11 SAK (Rec: 08/15/19 08:50 SAK [id number]) Physical Therapy Assessment Rehab Potential Rehabilitation Potential Fair Evaluation Complexity Number of Personal Factors/Comorbidities 3 or More Number of Body Systems Impaired 3 Clinical Presentation at Evaluation Evolving Impairments Impairments Activity Tolerance,Balance, Strength Goals Four Impairment activity tolerance Formulator Goal (LTG) Patient to tolerate 45 minute aquatic exercise program without increase in pain or excess fatigue and be independent in aquatic ex program for skilled nursing fitness and pain management. Three Impairment Gait: limited to household, very short distance community (<250') Short Term Goal (STG) Patient able to walk 500' with 4WW before requiring a rest break STG Duration 6 wks Formulator Goal (LTG) Patient able to tolerate 10-15 min of standing and walking to allow her to do brief shopping trips before needing to sit down for rest break LTG Duration 12 wks Two Impairment weakness bilateral LE's Short Term Goal (STG) Patient to be independent and compliant with HEP to include use of a video for increased compliance. STG Duration 6 wks Retirement Goal (LTG) Patient to demonstrate improvement in LE strength by 1 grade throughout to improve her functional mobility and safety LTG Duration 12 wks One Impairment balance dysfunction with multiple falls, high fall risk category Short Term Goal (STG) No reported falls STG Duration 6 wks Retirement Goal (LTG) Patient to demonstrate a improvement in her score on Tinettti gait and balance assessment from high fall risk to no greater than moderate fall risk LTG Duration 12 wks Assessment Summary Assessment Patient presents with function -limiting weakness and balance dysfunction, significantly worsened since last seen by this PT. She has poor activity tolerance and has had multiple falls. Her functional status is complicated by bilateral LE neuropathy as well as weight gain. She would benefit from physical therapy starting in aquatic therapy and progressing to land-based PT as well, with emphasis on home program and strategies to ensure patient able to continue with HEP and aquatic exercise at discharge Physical Therapy Plan Frequency and Duration Frequency of Treatment 2x/wk Duration of Treatment 12 wks Plan of Care Start Date 08/15/19 Plan of Care End Date 11/13/19 Therapeutic Interventions Therapeutic Interventions Aquatic Therapy,Balance Training,Gait Training,Home Exercise Program,Manual Therapy,Neuromuscular Re- education,Patient/Caregiver Education,Self-Care/Home Management,Therapeutic Activities,Therapeutic Exercises Modalities Cold Pack/Ice Massage,Electric Stimulation,Hot Packs Next Visit Focus/Plan Next Note Type Treatment Note Next Visit Plan Initiate aquatic therapy Plan of Care Dates Plan of Care Start Date 08/15/19 Plan of Care End Date 11/13/19 Electronically Signed by: Barbra Galvan, PT 08/15/19 [id number] Please Sign and Return: I have reviewed this Plan of Care and certify that the skilled therapy services above are required to meet the patient?s needs. Physician Signature Date Printed Name and Credentials Clinical Instructor Signature Printed Name and Credentials
--- NOTE | 2019-08-21 15:46 | PT.OTN ---
Current Diagnoses Other abnormalities of gait and mobility (08/15/19) Physical Therapy Treatment Note PT-OP-A Visit Information Start: 08/15/19 08:03 Freq: Status: Active Protocol: Document 08/21/19 12:30 LJ (Rec: 08/21/19 15:45 LJ [id number]) Out-Patient Physical Therapy Visit Information Visit Information Visit Type Aquatic Treatment Note Visit Start Time 12:30 Visit Stop Time 13:15 Total Visit Minutes 45 Visit Number 2 Number of REED DIPPER Visits 1 PT-OP-B Current Condition Start: 08/15/19 08:03 Freq: Status: Active Protocol: Document 08/15/19 08:11 SAK (Rec: 08/15/19 08:50 SAK [id number]) Current Condition History of Current Condition Onset Date 10+ years Current Complaints poor balance with multiple falls History of Current Condition Reports long history of gradual decrease in strength and balance with multiple falls, legs give out, UEs not able to hold self up. Poor activity level with limited ability to stand or walk due to weakness and LBP. Has had a hard time getting out of house. Removal of parathyroid gland earlier this year has resulted in increase in weight . 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 Wears orthotics majority of the time. Uses cane and 4WW. Going to be measured for custom compression stockings at [facility]. Uses heat for LBP, arthritis Tylenol. Prior Treatments and Tests H/O foot surgery History of aortic valve replacement History of hip replacement History of knee replacement History of knee replacement Status post hysterectomy COPD (chronic obstructive pulmonary disease) GERD (gastroesophageal reflux disease) Hyperlipidemia Hypertension Morbid obesity Neuropathy Treatment Goals Patient/Caregiver Goals Hoping to gain more strength, be able to tolerate standing and walking, better balance. 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 PT-OP-H Neuro Start: 08/15/19 08:03 Freq: Status: Active Protocol: Document 08/15/19 08:11 SAK (Rec: 08/15/19 08:50 SAK [id number]) Sensation Evaluation Gross Sensation Gross Sensation Left LE Impaired,Right LE Impaired Sensation Description Paresthesia,Numbness PT-OP-K Range of Motion Start: 08/15/19 08:03 Freq: Status: Active Protocol: Document 08/15/19 08:11 SAK (Rec: 08/15/19 08:50 SAK [id number]) Lumbar Spine Range of Motion Lumbar Spine Active ROM Limitations Pain Hip Goniometric Range of Motion Hip gabby Hip ROM WFL Yes Knee Goniometric Range of Motion Knee ROM Limitations Knee ROM Limitations Pain Comments genu valgus right Ankle and Foot Goniometric Range of Motion Ankle and Foot gabby Dorsiflexion with Knee Flexed 0 PT-OP-M Strength Start: 08/15/19 08:03 Freq: Status: Active Protocol: Document 08/15/19 08:11 SAK (Rec: 08/15/19 08:50 SAK [id number]) Trunk Strength Trunk Manual Muscle Testing Flexion 2- Poor- Extension 2- Poor- Hip Strength Hip Manual Muscle Testing gabby Flexion (L2) 3+ Fair+ Extension (S1) 2 Poor Abduction 2 Poor Adduction 2 Poor External Rotation 2- Poor- Internal Rotation 2- Poor- Knee Strength Knee Manual Muscle Testing gabby Flexion (S2) 4- Good- Extension (L3) 4- Good- Ankle/Foot Strength Ankle and Foot Manual Muscle Testing gabby Dorsiflexion (L4) 3+ Fair+ Plantarflexion (S1) 4- Good- PT-OP-Q Treatments Start: 08/15/19 08:03 Freq: Status: Active Protocol: Document 08/15/19 08:11 SAK (Rec: 08/15/19 16:30 SAK [id number]) Self-Care/Home Management Treatment Education Patient Education Home Exercise Program Other Education explore videos for seated exercise program PT-OP-S Aquatic Treatment Start: 08/15/19 08:03 Freq: Status: Active Protocol: Document 08/21/19 12:30 LJ (Rec: 08/21/19 15:45 LJ [id number]) Aquatics Treatment Pool Entry/Exit Pool Entry/Exit Method Stairs Assistance Standby Assistance,Contact Guard Assistance,Verbal Cues Water Walking start stop Water Level Chest Level Walking Equipment Ankle Weight- 3.75# Backwards Water Level Chest Level Walking Equipment Ankle Weight- 3.75# Level of Assistance Standby Assistance,Verbal Cues Sideways Water Level Chest Level Walking Equipment Ankle Weight- 3.75# Level of Assistance Standby Assistance,Verbal Cues Forwards Water Level Chest Level Walking Equipment Ankle Weight- 3.75# Level of Assistance Standby Assistance,Verbal Cues Lower Extremity Exercises squats Body Position Standing Water Level Waist Level Equipment lg box Reps/Duration 15x Comments started on stairs with 10X Hip figure 8 Body Position Standing Water Level Chest Level Equipment Ankle Weight- 3.75# Reps/Duration x 10 HS curls Body Position Standing Water Level Chest Level Equipment Ankle Weight- 3.75# Reps/Duration x 10 4 Details Knee flexion/extension Body Position Standing Water Level Chest Level Equipment Ankle Weight- 3.75# Reps/Duration x 10 reps 3 Details L.E. circumduction Body Position Standing Water Level Chest Level Equipment Ankle Weight- 3.75# Reps/Duration x 10 reps 2 Details Hip AB/AD Body Position Standing Water Level Chest Level Equipment Ankle Weight- 3.75# Reps/Duration x 10 reps 1 Details Hip flex/ext Body Position Standing Water Level Chest Level Reps/Duration x 10 reps Lower Extremity Stretches Hip flexor Body Position Standing Water Level Chest Level Reps/Duration 2 x45 sec B Quads Body Position Standing Water Level Chest Level Equipment Small Noodle Reps/Duration 2 x45 sec HS Body Position Standing Water Level Chest Level Reps/Duration 2 x45 sec Balance step up/down lg box Body Position Standing Water Level Waist Level Equipment 3.75#, lg noodle Reps/Duration 4x each direction Comments CGA-Dianna [place] Activities [place] Activities Bicycle,Cross Country,Running, Hip Abduction/Adduction Equipment lg noodle, 3.75# Duration 15 minutes Comments began with belt but it caused back pain PT-OP-T Assessment and Plan Start: 08/15/19 08:03 Freq: Status: Active Protocol: Document 08/21/19 12:30 KAITLIN (Rec: 08/21/19 15:45 [facility] [id number]) Physical Therapy Assessment Rehab Potential Rehabilitation Potential Fair Evaluation Complexity Number of Personal Factors/Comorbidities 3 or More Number of Body Systems Impaired 3 Clinical Presentation at Evaluation Evolving Impairments Impairments Activity Tolerance,Balance, Strength Other Concerns Barriers to Rehabilitation chronicity of condition low activity tolerance, SOB kidney dysfunction Goals Four Impairment activity tolerance Halfway Goal (LTG) Patient to tolerate 45 minute aquatic exercise program without increase in pain or excess fatigue and be independent in aquatic ex program for salvage determiner fitness and pain management. Three Impairment Gait: limited to household, very short distance community (<250') Short Term Goal (STG) Patient able to walk 500' with 4WW before requiring a rest break STG Duration 6 wks Halfway Goal (LTG) Patient able to tolerate 10-15 min of standing and walking to allow her to do brief shopping trips before needing to sit down for rest break LTG Duration 12 wks Two Impairment weakness bilateral LE's Short Term Goal (STG) Patient to be independent and compliant with HEP to include use of a video for increased compliance. STG Duration 6 wks Staying Machine Operator Goal (LTG) Patient to demonstrate improvement in LE strength by 1 grade throughout to improve her functional mobility and safety LTG Duration 12 wks One Impairment balance dysfunction with multiple falls, high fall risk category Short Term Goal (STG) No reported falls STG Duration 6 wks Halfway Goal (LTG) Patient to demonstrate a improvement in her score on Tinettti gait and balance assessment from high fall risk to no greater than moderate fall risk LTG Duration 12 wks Eight Impairment weakness left shoulder Staying Machine Operator Goal (LTG) Patient left UE strength at least 4+/5 Seven Impairment activity tolerance Halfway Goal (LTG) Patient able to reach overhead and behind her back with minimal to no pain for purposes of ADL's and usual activities Assessment Summary Assessment Pt tolerated walking exercises and standing exercises well. Performed squats well with minimal hand hold on side. She experienced several LOB when stepping up/down on box. Used noodle for assist and CGA. Pt complained of back pain while performing CC ski in deep water so swited to just a lg noodle for the remainder of the exercises in deep water and the pain did nt return. Pt had difficulty stepping up/ down box w/o assist Physical Therapy Plan Frequency and Duration Frequency of Treatment 2x/wk Duration of Treatment 12 wks Plan of Care Start Date 08/15/19 Plan of Care End Date 11/13/19 Therapeutic Interventions Therapeutic Interventions Aquatic Therapy,Balance Training,Gait Training,Home Exercise Program,Manual Therapy,Neuromuscular Re- education,Patient/Caregiver Education,Self-Care/Home Management,Therapeutic Activities,Therapeutic Exercises Modalities Cold Pack/Ice Massage,Electric Stimulation,Hot Packs Next Visit Focus/Plan Next Note Type Treatment Note Next Visit Plan Progress aquatic therapy for strengthening and balance.
--- NOTE | 2019-08-23 14:12 | PT.OTN ---
Current Diagnoses Other abnormalities of gait and mobility (08/23/19) Physical Therapy Treatment Note PT-OP-A Visit Information Start: 08/15/19 08:03 Freq: Status: Active Protocol: Document 08/23/19 14:05 [facility] (Rec: 08/23/19 14:12 [facility] [id number]) Out-Patient Physical Therapy Visit Information Visit Information Visit Type Aquatic Treatment Note Visit Start Time 10:15 Visit Stop Time 11:00 Total Visit Minutes 45 Visit Number 3 Number of SYSTEMS INTEGRATION MANAGER Visits 0 PT-OP-B Current Condition Start: 08/15/19 08:03 Freq: Status: Active Protocol: Document 08/15/19 08:11 SAK (Rec: 08/15/19 08:50 [facility] [id number]) Current Condition History of Current Condition Onset Date 10+ years Current Complaints poor balance with multiple falls History of Current Condition Reports long history of gradual decrease in strength and balance with multiple falls, legs give out, UEs not able to hold self up. Poor activity level with limited ability to stand or walk due to weakness and LBP. Has had a hard time getting out of house. Removal of parathyroid gland earlier this year has resulted in increase in weight . 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 Wears orthotics majority of the time. Uses cane and 4WW. Going to be measured for custom compression stockings at [facility] pharmacy. Uses heat for LBP, arthritis Tylenol. Prior Treatments and Tests H/O foot surgery History of aortic valve replacement History of hip replacement History of knee replacement History of knee replacement Status post hysterectomy COPD (chronic obstructive pulmonary disease) GERD (gastroesophageal reflux disease) Hyperlipidemia Hypertension Morbid obesity Neuropathy Treatment Goals Patient/Caregiver Goals Hoping to gain more strength, be able to tolerate standing and walking, better balance. 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 States cross country in deep water hurt her LB PT-OP-H Neuro Start: 08/15/19 08:03 Freq: Status: Active Protocol: Document 08/15/19 08:11 SAK (Rec: 08/15/19 08:50 SAK [id number]) Sensation Evaluation Gross Sensation Gross Sensation Left LE Impaired,Right LE Impaired Sensation Description Paresthesia,Numbness PT-OP-K Range of Motion Start: 08/15/19 08:03 Freq: Status: Active Protocol: Document 08/15/19 08:11 SAK (Rec: 08/15/19 08:50 SAK [id number]) Lumbar Spine Range of Motion Lumbar Spine Active ROM Limitations Pain Hip Goniometric Range of Motion Hip gabby Hip ROM WFL Yes Knee Goniometric Range of Motion Knee ROM Limitations Knee ROM Limitations Pain Comments genu valgus right Ankle and Foot Goniometric Range of Motion Ankle and Foot gabby Dorsiflexion with Knee Flexed 0 PT-OP-M Strength Start: 08/15/19 08:03 Freq: Status: Active Protocol: Document 08/15/19 08:11 SAK (Rec: 08/15/19 08:50 SAK [id number]) Trunk Strength Trunk Manual Muscle Testing Flexion 2- Poor- Extension 2- Poor- Hip Strength Hip Manual Muscle Testing gabby Flexion (L2) 3+ Fair+ Extension (S1) 2 Poor Abduction 2 Poor Adduction 2 Poor External Rotation 2- Poor- Internal Rotation 2- Poor- Knee Strength Knee Manual Muscle Testing gabby Flexion (S2) 4- Good- Extension (L3) 4- Good- Ankle/Foot Strength Ankle and Foot Manual Muscle Testing gabby Dorsiflexion (L4) 3+ Fair+ Plantarflexion (S1) 4- Good- PT-OP-Q Treatments Start: 08/15/19 08:03 Freq: Status: Active Protocol: Document 08/15/19 08:11 SAK (Rec: 08/15/19 16:30 [facility] [id number]) Self-Care/Home Management Treatment Education Patient Education Home Exercise Program Other Education explore videos for seated exercise program PT-OP-S Aquatic Treatment Start: 08/15/19 08:03 Freq: Status: Active Protocol: Document 08/23/19 14:05 [facility] (Rec: 08/23/19 14:12 [facility] [id number]) Aquatics Treatment Pool Entry/Exit Pool Entry/Exit Method Stairs Assistance Standby Assistance,Contact Guard Assistance,Verbal Cues Water Walking start stop Water Level Chest Level Backwards Water Level Chest Level Level of Assistance Standby Assistance,Verbal Cues Sideways Water Level Chest Level Level of Assistance Standby Assistance,Verbal Cues Forwards Water Level Chest Level Level of Assistance Standby Assistance,Verbal Cues Lower Extremity Exercises squats Body Position Standing Water Level Waist Level Reps/Duration 15x HS curls Body Position Standing Water Level Chest Level Reps/Duration x 10 4 Details Knee flexion/extension Body Position Standing Water Level Chest Level Reps/Duration x 10 reps 3 Details L.E. circumduction Body Position Standing Water Level Chest Level Reps/Duration x 10 reps 2 Details Hip AB/AD Body Position Standing Water Level Chest Level Reps/Duration x 10 reps 1 Details Hip flex/ext Body Position Standing Water Level Chest Level Reps/Duration x 10 reps Lower Extremity Stretches Quads Body Position Standing Water Level Chest Level Equipment Small Noodle Reps/Duration 2 x45 sec HS Body Position Standing Water Level Chest Level Reps/Duration 2 x45 sec Spinal Exercises 1 Details U.E. Horiz AB/AD, shoulder flexion Body Position Standing Water Level Chest Level Comments With core stabilization emphasis, bilateral and unilateral Balance step up/down lg box Body Position Standing Water Level Waist Level Reps/Duration 5x Comments CGA-Dianna [place] Activities [place] Activities Bicycle,Running PT-OP-T Assessment and Plan Start: 08/15/19 08:03 Freq: Status: Active Protocol: Document 08/23/19 14:05 [facility] (Rec: 08/23/19 14:12 [facility] [id number]) Physical Therapy Assessment Rehab Potential Rehabilitation Potential Fair Evaluation Complexity Number of Personal Factors/Comorbidities 3 or More Number of Body Systems Impaired 3 Clinical Presentation at Evaluation Evolving Impairments Impairments Activity Tolerance,Balance, Strength Other Concerns Barriers to Rehabilitation chronicity of condition low activity tolerance, SOB kidney dysfunction Goals Four Impairment activity tolerance Detention Goal (LTG) Patient to tolerate 45 minute aquatic exercise program without increase in pain or excess fatigue and be independent in aquatic ex program for care home fitness and pain management. Three Impairment Gait: limited to household, very short distance community (<250') Short Term Goal (STG) Patient able to walk 500' with 4WW before requiring a rest break STG Duration 6 wks Detention Goal (LTG) Patient able to tolerate 10-15 min of standing and walking to allow her to do brief shopping trips before needing to sit down for rest break LTG Duration 12 wks Two Impairment weakness bilateral LE's Short Term Goal (STG) Patient to be independent and compliant with HEP to include use of a video for increased compliance. STG Duration 6 wks Detention Goal (LTG) Patient to demonstrate improvement in LE strength by 1 grade throughout to improve her functional mobility and safety LTG Duration 12 wks One Impairment balance dysfunction with multiple falls, high fall risk category Short Term Goal (STG) No reported falls STG Duration 6 wks Detention Goal (LTG) Patient to demonstrate a improvement in her score on Tinettti gait and balance assessment from high fall risk to no greater than moderate fall risk LTG Duration 12 wks Eight Impairment weakness left shoulder Interior Design Professor Goal (LTG) Patient left UE strength at least 4+/5 Seven Impairment activity tolerance Interior Design Professor Goal (LTG) Patient able to reach overhead and behind her back with minimal to no pain for purposes of ADL's and usual activities Assessment Summary Assessment Due to patient c/o LBP did not do cross country ski, trial with no weights today. Physical Therapy Plan Frequency and Duration Frequency of Treatment 2x/wk Duration of Treatment 12 wks Plan of Care Start Date 08/15/19 Plan of Care End Date 11/13/19 Therapeutic Interventions Therapeutic Interventions Aquatic Therapy,Balance Training,Gait Training,Home Exercise Program,Manual Therapy,Neuromuscular Re- education,Patient/Caregiver Education,Self-Care/Home Management,Therapeutic Activities,Therapeutic Exercises Modalities Cold Pack/Ice Massage,Electric Stimulation,Hot Packs Next Visit Focus/Plan Next Note Type Treatment Note Next Visit Plan Progress aquatic therapy for strengthening and balance.
--- NOTE | 2019-08-28 14:58 | PT.OTN ---
Current Diagnoses Other abnormalities of gait and mobility (08/28/19) Physical Therapy Treatment Note PT-OP-A Visit Information Start: 08/15/19 08:03 Freq: Status: Active Protocol: Document 08/28/19 14:51 [facility] (Rec: 08/28/19 14:58 [facility] [id number]) Out-Patient Physical Therapy Visit Information Visit Information Visit Type Aquatic Treatment Note Visit Start Time 10:15 Visit Stop Time 11:00 Total Visit Minutes 45 Visit Number 4 Number of MOTION DESIGNER Visits 0 PT-OP-B Current Condition Start: 08/15/19 08:03 Freq: Status: Active Protocol: Document 08/15/19 08:11 SAK (Rec: 08/15/19 08:50 SAK [id number]) Current Condition History of Current Condition Onset Date 10+ years Current Complaints poor balance with multiple falls History of Current Condition Reports long history of gradual decrease in strength and balance with multiple falls, legs give out, UEs not able to hold self up. Poor activity level with limited ability to stand or walk due to weakness and LBP. Has had a hard time getting out of house. Removal of parathyroid gland earlier this year has resulted in increase in weight . 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 Wears orthotics majority of the time. Uses cane and 4WW. Going to be measured for custom compression stockings at [facility] pharmacy. Uses heat for LBP, arthritis Tylenol. Prior Treatments and Tests H/O foot surgery History of aortic valve replacement History of hip replacement History of knee replacement History of knee replacement Status post hysterectomy COPD (chronic obstructive pulmonary disease) GERD (gastroesophageal reflux disease) Hyperlipidemia Hypertension Morbid obesity Neuropathy Treatment Goals Patient/Caregiver Goals Hoping to gain more strength, be able to tolerate standing and walking, better balance. 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 Feels her balance is a little better since starting aquatic PT. PT-OP-H Neuro Start: 08/15/19 08:03 Freq: Status: Active Protocol: Document 08/15/19 08:11 SAK (Rec: 08/15/19 08:50 SAK [id number]) Sensation Evaluation Gross Sensation Gross Sensation Left LE Impaired,Right LE Impaired Sensation Description Paresthesia,Numbness PT-OP-K Range of Motion Start: 08/15/19 08:03 Freq: Status: Active Protocol: Document 08/15/19 08:11 SAK (Rec: 08/15/19 08:50 SAK [id number]) Lumbar Spine Range of Motion Lumbar Spine Active ROM Limitations Pain Hip Goniometric Range of Motion Hip gabby Hip ROM WFL Yes Knee Goniometric Range of Motion Knee ROM Limitations Knee ROM Limitations Pain Comments genu valgus right Ankle and Foot Goniometric Range of Motion Ankle and Foot gabby Dorsiflexion with Knee Flexed 0 PT-OP-M Strength Start: 08/15/19 08:03 Freq: Status: Active Protocol: Document 08/15/19 08:11 SAK (Rec: 08/15/19 08:50 SAK [id number]) Trunk Strength Trunk Manual Muscle Testing Flexion 2- Poor- Extension 2- Poor- Hip Strength Hip Manual Muscle Testing gabby Flexion (L2) 3+ Fair+ Extension (S1) 2 Poor Abduction 2 Poor Adduction 2 Poor External Rotation 2- Poor- Internal Rotation 2- Poor- Knee Strength Knee Manual Muscle Testing gabby Flexion (S2) 4- Good- Extension (L3) 4- Good- Ankle/Foot Strength Ankle and Foot Manual Muscle Testing gabby Dorsiflexion (L4) 3+ Fair+ Plantarflexion (S1) 4- Good- PT-OP-Q Treatments Start: 08/15/19 08:03 Freq: Status: Active Protocol: Document 08/15/19 08:11 SAK (Rec: 08/15/19 16:30 [facility] [id number]) Self-Care/Home Management Treatment Education Patient Education Home Exercise Program Other Education explore videos for seated exercise program PT-OP-S Aquatic Treatment Start: 08/15/19 08:03 Freq: Status: Active Protocol: Document 08/28/19 14:51 [facility] (Rec: 08/28/19 14:58 [facility] [id number]) Aquatics Treatment Pool Entry/Exit Pool Entry/Exit Method Stairs Assistance Standby Assistance,Contact Guard Assistance,Verbal Cues Water Walking march Water Level Chest Level Level of Assistance Standby Assistance,Verbal Cues straight leg walk Water Level Chest Level Level of Assistance Standby Assistance,Verbal Cues start stop Water Level Chest Level Backwards Water Level Chest Level Level of Assistance Standby Assistance,Verbal Cues Sideways Water Level Chest Level Level of Assistance Standby Assistance,Verbal Cues Forwards Water Level Chest Level Level of Assistance Standby Assistance,Verbal Cues Lower Extremity Exercises squats Body Position Standing Water Level Waist Level Reps/Duration 15x Hip figure 8 Body Position Standing Water Level Chest Level Reps/Duration x 10 HS curls Body Position Standing Water Level Chest Level Reps/Duration x 10 4 Details Knee flexion/extension Body Position Standing Water Level Chest Level Reps/Duration x 10 reps 3 Details L.E. circumduction Body Position Standing Water Level Chest Level Reps/Duration x 10 reps 2 Details Hip AB/AD Body Position Standing Water Level Chest Level Reps/Duration x 10 reps Spinal Exercises 1 Details U.E. Horiz AB/AD, shoulder flexion Body Position Standing Water Level Chest Level Comments With core stabilization emphasis, bilateral and unilateral Balance SLS Reps/Duration 2x each LE step up/down lg box Body Position Standing Water Level Waist Level Reps/Duration 5x Comments CGA-Dianna [place] Activities [place] Activities Bicycle,Running Equipment flotation belt Duration 17 PT-OP-T Assessment and Plan Start: 08/15/19 08:03 Freq: Status: Active Protocol: Document 08/28/19 14:51 [facility] (Rec: 08/28/19 14:58 [facility] [id number]) Physical Therapy Assessment Other Concerns Barriers to Rehabilitation chronicity of condition low activity tolerance, SOB kidney dysfunction Goals Four Impairment activity tolerance Halfway Goal (LTG) Patient to tolerate 45 minute aquatic exercise program without increase in pain or excess fatigue and be independent in aquatic ex program for half-way fitness and pain management. Three Impairment Gait: limited to household, very short distance community (<250') Short Term Goal (STG) Patient able to walk 500' with 4WW before requiring a rest break STG Duration 6 wks Nurse School Goal (LTG) Patient able to tolerate 10-15 min of standing and walking to allow her to do brief shopping trips before needing to sit down for rest break LTG Duration 12 wks Two Impairment weakness bilateral LE's Short Term Goal (STG) Patient to be independent and compliant with HEP to include use of a video for increased compliance. STG Duration 6 wks Halfway Goal (LTG) Patient to demonstrate improvement in LE strength by 1 grade throughout to improve her functional mobility and safety LTG Duration 12 wks One Impairment balance dysfunction with multiple falls, high fall risk category Short Term Goal (STG) No reported falls STG Duration 6 wks Halfway Goal (LTG) Patient to demonstrate a improvement in her score on Tinettti gait and balance assessment from high fall risk to no greater than moderate fall risk LTG Duration 12 wks Eight Impairment weakness left shoulder Nurse School Goal (LTG) Patient left UE strength at least 4+/5 Seven Impairment activity tolerance Halfway Goal (LTG) Patient able to reach overhead and behind her back with minimal to no pain for purposes of ADL's and usual activities Assessment Summary Assessment Patient able to do shallow water ex with decreased UE support, reporting some improvement in balance. Highly motivated. Physical Therapy Plan Frequency and Duration Frequency of Treatment 2x/wk Duration of Treatment 12 wks Plan of Care Start Date 08/15/19 Plan of Care End Date 11/13/19 Therapeutic Interventions Therapeutic Interventions Aquatic Therapy,Balance Training,Gait Training,Home Exercise Program,Manual Therapy,Neuromuscular Re- education,Patient/Caregiver Education,Self-Care/Home Management,Therapeutic Activities,Therapeutic Exercises Next Visit Focus/Plan Next Note Type Treatment Note Next Visit Plan Assess response to flotation belt, consider saddle float trial. Progress aquatic ex as tolerated for strengthening, flexibility, balance. Start with step-ups.
--- NOTE | 2019-09-04 11:00 | PT.OTN ---
Current Diagnoses Other abnormalities of gait and mobility (08/28/19) Physical Therapy Treatment Note PT-OP-A Visit Information Start: 08/15/19 08:03 Freq: Status: Active Protocol: Document 09/04/19 11:00 CLB (Rec: 09/04/19 15:31 CLB [id number]) Out-Patient Physical Therapy Visit Information Visit Information Visit Type Aquatic Treatment Note Visit Start Time 11:00 Visit Stop Time 11:45 Total Visit Minutes 45 Visit Number 5 Number of INSURANCE PRODUCER Visits 1 PT-OP-B Current Condition Start: 08/15/19 08:03 Freq: Status: Active Protocol: Document 08/15/19 08:11 SAK (Rec: 08/15/19 08:50 SAK [id number]) Current Condition History of Current Condition Onset Date 10+ years Current Complaints poor balance with multiple falls History of Current Condition Reports long history of gradual decrease in strength and balance with multiple falls, legs give out, UEs not able to hold self up. Poor activity level with limited ability to stand or walk due to weakness and LBP. Has had a hard time getting out of house. Removal of parathyroid gland earlier this year has resulted in increase in weight . 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 Wears orthotics majority of the time. Uses cane and 4WW. Going to be measured for custom compression stockings at [facility] pharmacy. Uses heat for LBP, arthritis Tylenol. Prior Treatments and Tests H/O foot surgery History of aortic valve replacement History of hip replacement History of knee replacement History of knee replacement Status post hysterectomy COPD (chronic obstructive pulmonary disease) GERD (gastroesophageal reflux disease) Hyperlipidemia Hypertension Morbid obesity Neuropathy Treatment Goals Patient/Caregiver Goals Hoping to gain more strength, be able to tolerate standing and walking, better balance. 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 PT-OP-H Neuro Start: 08/15/19 08:03 Freq: Status: Active Protocol: Document 08/15/19 08:11 SAK (Rec: 08/15/19 08:50 SAK [id number]) Sensation Evaluation Gross Sensation Gross Sensation Left LE Impaired,Right LE Impaired Sensation Description Paresthesia,Numbness PT-OP-K Range of Motion Start: 08/15/19 08:03 Freq: Status: Active Protocol: Document 08/15/19 08:11 SAK (Rec: 08/15/19 08:50 SAK [id number]) Lumbar Spine Range of Motion Lumbar Spine Active ROM Limitations Pain Hip Goniometric Range of Motion Hip gabby Hip ROM WFL Yes Knee Goniometric Range of Motion Knee ROM Limitations Knee ROM Limitations Pain Comments genu valgus right Ankle and Foot Goniometric Range of Motion Ankle and Foot gabby Dorsiflexion with Knee Flexed 0 PT-OP-M Strength Start: 08/15/19 08:03 Freq: Status: Active Protocol: Document 08/15/19 08:11 SAK (Rec: 08/15/19 08:50 SAK [id number]) Trunk Strength Trunk Manual Muscle Testing Flexion 2- Poor- Extension 2- Poor- Hip Strength Hip Manual Muscle Testing gabby Flexion (L2) 3+ Fair+ Extension (S1) 2 Poor Abduction 2 Poor Adduction 2 Poor External Rotation 2- Poor- Internal Rotation 2- Poor- Knee Strength Knee Manual Muscle Testing gabby Flexion (S2) 4- Good- Extension (L3) 4- Good- Ankle/Foot Strength Ankle and Foot Manual Muscle Testing gabby Dorsiflexion (L4) 3+ Fair+ Plantarflexion (S1) 4- Good- PT-OP-Q Treatments Start: 08/15/19 08:03 Freq: Status: Active Protocol: Document 08/15/19 08:11 SAK (Rec: 08/15/19 16:30 SAK [id number]) Self-Care/Home Management Treatment Education Patient Education Home Exercise Program Other Education explore videos for seated exercise program PT-OP-S Aquatic Treatment Start: 08/15/19 08:03 Freq: Status: Active Protocol: Document 09/04/19 11:00 CLB (Rec: 09/04/19 15:31 CLB [id number]) Aquatics Treatment Pool Entry/Exit Pool Entry/Exit Method Stairs Assistance Standby Assistance,Contact Guard Assistance,Verbal Cues Water Walking march Water Level Chest Level Level of Assistance Standby Assistance,Verbal Cues straight leg walk Water Level Chest Level Level of Assistance Standby Assistance,Verbal Cues start stop Water Level Chest Level Backwards Water Level Chest Level Level of Assistance Standby Assistance,Verbal Cues Sideways Water Level Chest Level Level of Assistance Standby Assistance,Verbal Cues Forwards Water Level Chest Level Level of Assistance Standby Assistance,Verbal Cues Lower Extremity Exercises squats Body Position Standing Water Level Waist Level Reps/Duration 15x HS curls Body Position Standing Water Level Chest Level Reps/Duration x 10 4 Details Knee flexion/extension Body Position Standing Water Level Chest Level Reps/Duration x 10 reps 3 Details L.E. circumduction Body Position Standing Water Level Chest Level Reps/Duration x 10 reps 2 Details Hip AB/AD Body Position Standing Water Level Chest Level Reps/Duration x 10 reps 1 Details Hip flex/ext Body Position Standing Water Level Chest Level Reps/Duration x 10 reps Lower Extremity Stretches Quads Body Position Standing Water Level Chest Level Equipment Small Noodle Reps/Duration 2 x45 sec HS Body Position Standing Water Level Chest Level Reps/Duration 2 x45 sec Balance SLS Reps/Duration 2x each LE step up/down lg box Body Position Standing Water Level Waist Level Reps/Duration 5x Comments CGA-Dianna [place] Activities [place] Activities Bicycle,Running Equipment flotation belt Duration 15 PT-OP-T Assessment and Plan Start: 08/15/19 08:03 Freq: Status: Active Protocol: Document 09/04/19 11:00 CLB (Rec: 09/04/19 15:31 CLB [id number]) Physical Therapy Assessment Goals Four Impairment activity tolerance Conservation Science Teacher Goal (LTG) Patient to tolerate 45 minute aquatic exercise program without increase in pain or excess fatigue and be independent in aquatic ex program for assisted fitness and pain management. Three Impairment Gait: limited to household, very short distance community (<250') Short Term Goal (STG) Patient able to walk 500' with 4WW before requiring a rest break STG Duration 6 wks Retirement Goal (LTG) Patient able to tolerate 10-15 min of standing and walking to allow her to do brief shopping trips before needing to sit down for rest break LTG Duration 12 wks Two Impairment weakness bilateral LE's Short Term Goal (STG) Patient to be independent and compliant with HEP to include use of a video for increased compliance. STG Duration 6 wks Conservation Science Teacher Goal (LTG) Patient to demonstrate improvement in LE strength by 1 grade throughout to improve her functional mobility and safety LTG Duration 12 wks One Impairment balance dysfunction with multiple falls, high fall risk category Short Term Goal (STG) No reported falls STG Duration 6 wks Retirement Goal (LTG) Patient to demonstrate a improvement in her score on Tinettti gait and balance assessment from high fall risk to no greater than moderate fall risk LTG Duration 12 wks Eight Impairment weakness left shoulder Retirement Goal (LTG) Patient left UE strength at least 4+/5 Seven Impairment activity tolerance Retirement Goal (LTG) Patient able to reach overhead and behind her back with minimal to no pain for purposes of ADL's and usual activities Assessment Summary Assessment Pt continues to improve with balance with water walking, however pt did have difficulty with straight leg walk due to shoes and weights during straight leg walk may be needed. Physical Therapy Plan Frequency and Duration Frequency of Treatment 2x/wk Duration of Treatment 12 wks Plan of Care Start Date 08/15/19 Plan of Care End Date 11/13/19 Next Visit Focus/Plan Next Note Type Treatment Note Next Visit Plan Progress aquatic ex as tolerated for strengthening, flexibility, balance.
--- NOTE | 2019-09-06 11:00 | PT.OTN ---
Current Diagnoses Other abnormalities of gait and mobility (09/06/19) Physical Therapy Treatment Note PT-OP-A Visit Information Start: 08/15/19 08:03 Freq: Status: Active Protocol: Document 09/06/19 11:00 [facility] (Rec: 09/09/19 11:28 [facility] [id number]) Out-Patient Physical Therapy Visit Information Visit Information Visit Type Aquatic Treatment Note Visit Start Time 11:00 Visit Stop Time 11:45 Total Visit Minutes 45 Visit Number 6 Number of FURNACE PROCESS SUPERVISOR Visits 0 PT-OP-B Current Condition Start: 08/15/19 08:03 Freq: Status: Active Protocol: Document 08/15/19 08:11 [facility] (Rec: 08/15/19 08:50 [facility] [id number]) Current Condition History of Current Condition Onset Date 10+ years Current Complaints poor balance with multiple falls History of Current Condition Reports long history of gradual decrease in strength and balance with multiple falls, legs give out, UEs not able to hold self up. Poor activity level with limited ability to stand or walk due to weakness and LBP. Has had a hard time getting out of house. Removal of parathyroid gland earlier this year has resulted in increase in weight . 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 Wears orthotics majority of the time. Uses cane and 4WW. Going to be measured for custom compression stockings at [facility]. Uses heat for LBP, arthritis Tylenol. Prior Treatments and Tests H/O foot surgery History of aortic valve replacement History of hip replacement History of knee replacement History of knee replacement Status post hysterectomy COPD (chronic obstructive pulmonary disease) GERD (gastroesophageal reflux disease) Hyperlipidemia Hypertension Morbid obesity Neuropathy Treatment Goals Patient/Caregiver Goals Hoping to gain more strength, be able to tolerate standing and walking, better balance. 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 PT-OP-H Neuro Start: 08/15/19 08:03 Freq: Status: Active Protocol: Document 08/15/19 08:11 SAK (Rec: 08/15/19 08:50 SAK [id number]) Sensation Evaluation Gross Sensation Gross Sensation Left LE Impaired,Right LE Impaired Sensation Description Paresthesia,Numbness PT-OP-K Range of Motion Start: 08/15/19 08:03 Freq: Status: Active Protocol: Document 08/15/19 08:11 SAK (Rec: 08/15/19 08:50 SAK [id number]) Lumbar Spine Range of Motion Lumbar Spine Active ROM Limitations Pain Hip Goniometric Range of Motion Hip gabby Hip ROM WFL Yes Knee Goniometric Range of Motion Knee ROM Limitations Knee ROM Limitations Pain Comments genu valgus right Ankle and Foot Goniometric Range of Motion Ankle and Foot gabby Dorsiflexion with Knee Flexed 0 PT-OP-M Strength Start: 08/15/19 08:03 Freq: Status: Active Protocol: Document 08/15/19 08:11 SAK (Rec: 08/15/19 08:50 SAK [id number]) Trunk Strength Trunk Manual Muscle Testing Flexion 2- Poor- Extension 2- Poor- Hip Strength Hip Manual Muscle Testing gabby Flexion (L2) 3+ Fair+ Extension (S1) 2 Poor Abduction 2 Poor Adduction 2 Poor External Rotation 2- Poor- Internal Rotation 2- Poor- Knee Strength Knee Manual Muscle Testing gabby Flexion (S2) 4- Good- Extension (L3) 4- Good- Ankle/Foot Strength Ankle and Foot Manual Muscle Testing gabby Dorsiflexion (L4) 3+ Fair+ Plantarflexion (S1) 4- Good- PT-OP-Q Treatments Start: 08/15/19 08:03 Freq: Status: Active Protocol: Document 08/15/19 08:11 SAK (Rec: 08/15/19 16:30 [facility] [id number]) Self-Care/Home Management Treatment Education Patient Education Home Exercise Program Other Education explore videos for seated exercise program PT-OP-S Aquatic Treatment Start: 08/15/19 08:03 Freq: Status: Active Protocol: Document 09/06/19 11:00 [facility] (Rec: 09/09/19 11:28 [facility] [id number]) Aquatics Treatment Pool Entry/Exit Pool Entry/Exit Method Stairs Assistance Standby Assistance,Contact Guard Assistance,Verbal Cues Water Walking march Water Level Chest Level Level of Assistance Standby Assistance,Verbal Cues straight leg walk Water Level Chest Level Level of Assistance Standby Assistance,Verbal Cues start stop Water Level Chest Level Backwards Water Level Chest Level Level of Assistance Standby Assistance,Verbal Cues Sideways Water Level Chest Level Level of Assistance Standby Assistance,Verbal Cues Forwards Water Level Chest Level Level of Assistance Standby Assistance,Verbal Cues Lower Extremity Exercises squats Body Position Standing Water Level Waist Level Reps/Duration 15x HS curls Body Position Standing Water Level Chest Level Reps/Duration x 15 4 Details Knee flexion/extension Body Position Standing Water Level Chest Level Reps/Duration x 15 reps 3 Details L.E. circumduction Body Position Standing Water Level Chest Level Reps/Duration x 15 reps 2 Details Hip AB/AD Body Position Standing Water Level Chest Level Reps/Duration x 15 reps 1 Details Hip flex/ext Body Position Standing Water Level Chest Level Reps/Duration x 15 reps Lower Extremity Stretches Quads Body Position Standing Water Level Chest Level Equipment Small Noodle Reps/Duration 2 x45 sec HS Body Position Standing Water Level Chest Level Reps/Duration 2 x45 sec Balance SLS Reps/Duration 2x each LE step up/down lg box Body Position Standing Water Level Waist Level Reps/Duration 8x Comments CGA-Mod assist [place] Activities [place] Activities Bicycle,Bicycle Backwards, [place],Running Equipment flotation belt Duration 15 PT-OP-T Assessment and Plan Start: 08/15/19 08:03 Freq: Status: Active Protocol: Document 09/06/19 11:00 [facility] (Rec: 09/09/19 11:28 [facility] [id number]) Physical Therapy Assessment Other Concerns Barriers to Rehabilitation chronicity of condition low activity tolerance, SOB kidney dysfunction Goals Four Impairment activity tolerance Usp Goal (LTG) Patient to tolerate 45 minute aquatic exercise program without increase in pain or excess fatigue and be independent in aquatic ex program for fpc fitness and pain management. Three Impairment Gait: limited to household, very short distance community (<250') Short Term Goal (STG) Patient able to walk 500' with 4WW before requiring a rest break STG Duration 6 wks Box Gluer Goal (LTG) Patient able to tolerate 10-15 min of standing and walking to allow her to do brief shopping trips before needing to sit down for rest break LTG Duration 12 wks Two Impairment weakness bilateral LE's Short Term Goal (STG) Patient to be independent and compliant with HEP to include use of a video for increased compliance. STG Duration 6 wks Box Gluer Goal (LTG) Patient to demonstrate improvement in LE strength by 1 grade throughout to improve her functional mobility and safety LTG Duration 12 wks One Impairment balance dysfunction with multiple falls, high fall risk category Short Term Goal (STG) No reported falls STG Duration 6 wks Box Gluer Goal (LTG) Patient to demonstrate a improvement in her score on Tinettti gait and balance assessment from high fall risk to no greater than moderate fall risk LTG Duration 12 wks Eight Impairment weakness left shoulder Usp Goal (LTG) Patient left UE strength at least 4+/5 Seven Impairment activity tolerance Usp Goal (LTG) Patient able to reach overhead and behind her back with minimal to no pain for purposes of ADL's and usual activities Assessment Summary Assessment Increased difficulty with step -ups today, may want to do earlier in session when less fatigued. Overall improving tolerance to aquatic exercise. Physical Therapy Plan Frequency and Duration Frequency of Treatment 2x/wk Duration of Treatment 12 wks Plan of Care Start Date 08/15/19 Plan of Care End Date 11/13/19 Therapeutic Interventions Therapeutic Interventions Aquatic Therapy,Balance Training,Gait Training,Home Exercise Program,Manual Therapy,Neuromuscular Re- education,Patient/Caregiver Education,Self-Care/Home Management,Therapeutic Activities,Therapeutic Exercises Next Visit Focus/Plan Next Note Type Treatment Note Next Visit Plan Progress aquatic ex as tolerated for strengthening, flexibility, balance.
--- NOTE | 2019-09-11 14:22 | PT.OTN ---
Current Diagnoses Other abnormalities of gait and mobility (09/11/19) Physical Therapy Treatment Note PT-OP-A Visit Information Start: 08/15/19 08:03 Freq: Status: Active Protocol: Document 09/11/19 14:16 [facility] (Rec: 09/11/19 14:21 [facility] [id number]) Out-Patient Physical Therapy Visit Information Visit Information Visit Type Aquatic Treatment Note Visit Start Time 11:00 Visit Stop Time 11:45 Total Visit Minutes 45 Visit Number 7/10 Number of SHELLAC POLISHER Visits 0 PT-OP-B Current Condition Start: 08/15/19 08:03 Freq: Status: Active Protocol: Document 08/15/19 08:11 [facility] (Rec: 08/15/19 08:50 [facility] [id number]) Current Condition History of Current Condition Onset Date 10+ years Current Complaints poor balance with multiple falls History of Current Condition Reports long history of gradual decrease in strength and balance with multiple falls, legs give out, UEs not able to hold self up. Poor activity level with limited ability to stand or walk due to weakness and LBP. Has had a hard time getting out of house. Removal of parathyroid gland earlier this year has resulted in increase in weight . 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 Wears orthotics majority of the time. Uses cane and 4WW. Going to be measured for custom compression stockings at [facility] pharmacy. Uses heat for LBP, arthritis Tylenol. Prior Treatments and Tests H/O foot surgery History of aortic valve replacement History of hip replacement History of knee replacement History of knee replacement Status post hysterectomy COPD (chronic obstructive pulmonary disease) GERD (gastroesophageal reflux disease) Hyperlipidemia Hypertension Morbid obesity Neuropathy Treatment Goals Patient/Caregiver Goals Hoping to gain more strength, be able to tolerate standing and walking, better balance. 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 Reports less pain today. PT-OP-H Neuro Start: 08/15/19 08:03 Freq: Status: Active Protocol: Document 08/15/19 08:11 [facility]AK (Rec: 08/15/19 08:50 [facility]AK [id number]) Sensation Evaluation Gross Sensation Gross Sensation Left LE Impaired,Right LE Impaired Sensation Description Paresthesia,Numbness PT-OP-K Range of Motion Start: 08/15/19 08:03 Freq: Status: Active Protocol: Document 08/15/19 08:11 [facility]AK (Rec: 08/15/19 08:50 [facility] [id number]) Lumbar Spine Range of Motion Lumbar Spine Active ROM Limitations Pain Hip Goniometric Range of Motion Hip gabby Hip ROM WFL Yes Knee Goniometric Range of Motion Knee ROM Limitations Knee ROM Limitations Pain Comments genu valgus right Ankle and Foot Goniometric Range of Motion Ankle and Foot gabby Dorsiflexion with Knee Flexed 0 PT-OP-M Strength Start: 08/15/19 08:03 Freq: Status: Active Protocol: Document 08/15/19 08:11 [facility]AK (Rec: 08/15/19 08:50 [facility] [id number]) Trunk Strength Trunk Manual Muscle Testing Flexion 2- Poor- Extension 2- Poor- Hip Strength Hip Manual Muscle Testing gabby Flexion (L2) 3+ Fair+ Extension (S1) 2 Poor Abduction 2 Poor Adduction 2 Poor External Rotation 2- Poor- Internal Rotation 2- Poor- Knee Strength Knee Manual Muscle Testing gabby Flexion (S2) 4- Good- Extension (L3) 4- Good- Ankle/Foot Strength Ankle and Foot Manual Muscle Testing gabby Dorsiflexion (L4) 3+ Fair+ Plantarflexion (S1) 4- Good- PT-OP-Q Treatments Start: 08/15/19 08:03 Freq: Status: Active Protocol: Document 08/15/19 08:11 [facility]AK (Rec: 08/15/19 16:30 [facility] [id number]) Self-Care/Home Management Treatment Education Patient Education Home Exercise Program Other Education explore videos for seated exercise program PT-OP-S Aquatic Treatment Start: 08/15/19 08:03 Freq: Status: Active Protocol: Document 09/11/19 14:16 [facility] (Rec: 09/11/19 14:21 [facility] [id number]) Aquatics Treatment Pool Entry/Exit Pool Entry/Exit Method Stairs Assistance Standby Assistance,Contact Guard Assistance,Verbal Cues Water Walking barrell walk Water Level Chest Level Level of Assistance Standby Assistance,Verbal Cues march Water Level Chest Level Level of Assistance Standby Assistance,Verbal Cues straight leg walk Water Level Chest Level Level of Assistance Standby Assistance,Verbal Cues start stop Water Level Chest Level Backwards Water Level Chest Level Level of Assistance Standby Assistance,Verbal Cues Forwards Water Level Chest Level Level of Assistance Standby Assistance,Verbal Cues Lower Extremity Exercises squats Body Position Standing Water Level Waist Level Reps/Duration 15x HS curls Body Position Standing Water Level Chest Level Reps/Duration x 15 4 Details Knee flexion/extension Body Position Standing Water Level Chest Level Reps/Duration x 15 reps 3 Details L.E. circumduction Body Position Standing Water Level Chest Level Reps/Duration x 15 reps 2 Details Hip AB/AD Body Position Standing Water Level Chest Level Reps/Duration x 15 reps 1 Details Hip flex/ext Body Position Standing Water Level Chest Level Reps/Duration x 15 reps Lower Extremity Stretches Hip flexor Body Position Standing Water Level Chest Level Reps/Duration 2 x45 sec B Quads Body Position Standing Water Level Chest Level Equipment Small Noodle Reps/Duration 2 x45 sec HS Body Position Standing Water Level Chest Level Reps/Duration 2 x45 sec Balance SLS Reps/Duration 2x each LE step up/down lg box Body Position Standing Water Level Waist Level Reps/Duration 10x Comments SBA to min assist [place] Activities [place] Activities Bicycle,Bicycle Backwards, Cross Country,Running Other Activities bicycle with no UE's Equipment flotation belt Duration 15 PT-OP-T Assessment and Plan Start: 08/15/19 08:03 Freq: Status: Active Protocol: Document 09/11/19 14:16 [facility] (Rec: 09/11/19 14:21 [facility] [id number]) Physical Therapy Assessment Other Concerns Barriers to Rehabilitation chronicity of condition low activity tolerance, SOB kidney dysfunction Goals Four Impairment activity tolerance Professor Of Communication Goal (LTG) Patient to tolerate 45 minute aquatic exercise program without increase in pain or excess fatigue and be independent in aquatic ex program for fdc fitness and pain management. Three Impairment Gait: limited to household, very short distance community (<250') Short Term Goal (STG) Patient able to walk 500' with 4WW before requiring a rest break STG Duration 6 wks Professor Of Communication Goal (LTG) Patient able to tolerate 10-15 min of standing and walking to allow her to do brief shopping trips before needing to sit down for rest break LTG Duration 12 wks Two Impairment weakness bilateral LE's Short Term Goal (STG) Patient to be independent and compliant with HEP to include use of a video for increased compliance. STG Duration 6 wks Usp Goal (LTG) Patient to demonstrate improvement in LE strength by 1 grade throughout to improve her functional mobility and safety LTG Duration 12 wks One Impairment balance dysfunction with multiple falls, high fall risk category Short Term Goal (STG) No reported falls STG Duration 6 wks Professor Of Communication Goal (LTG) Patient to demonstrate a improvement in her score on Tinettti gait and balance assessment from high fall risk to no greater than moderate fall risk LTG Duration 12 wks Eight Impairment weakness left shoulder Usp Goal (LTG) Patient left UE strength at least 4+/5 Seven Impairment activity tolerance Usp Goal (LTG) Patient able to reach overhead and behind her back with minimal to no pain for purposes of ADL's and usual activities Assessment Summary Assessment Improved ability on step-ups today, less pain. Good compliance with aquatic PT and HEP. Physical Therapy Plan Frequency and Duration Frequency of Treatment 2x/wk Duration of Treatment 12 wks Plan of Care Start Date 08/15/19 Plan of Care End Date 11/13/19 Therapeutic Interventions Therapeutic Interventions Aquatic Therapy,Balance Training,Gait Training,Home Exercise Program,Manual Therapy,Neuromuscular Re- education,Patient/Caregiver Education,Self-Care/Home Management,Therapeutic Activities,Therapeutic Exercises Next Visit Focus/Plan Next Note Type Treatment Note Next Visit Plan Progress aquatic ex as tolerated for strengthening, flexibility, balance.
--- NOTE | 2019-09-13 17:00 | PT.OTN ---
Current Diagnoses Other abnormalities of gait and mobility (09/13/19) Physical Therapy Treatment Note PT-OP-A Visit Information Start: 08/15/19 08:03 Freq: Status: Active Protocol: Document 09/13/19 16:53 [facility] (Rec: 09/13/19 17:00 [facility] [id number]) Out-Patient Physical Therapy Visit Information Visit Information Visit Type Aquatic Treatment Note Visit Start Time 11:05 Visit Stop Time 11:45 Total Visit Minutes 40 Visit Number 8/10 Number of ACID CONDITIONER Visits 0 PT-OP-B Current Condition Start: 08/15/19 08:03 Freq: Status: Active Protocol: Document 08/15/19 08:11 [facility] (Rec: 08/15/19 08:50 [facility] [id number]) Current Condition History of Current Condition Onset Date 10+ years Current Complaints poor balance with multiple falls History of Current Condition Reports long history of gradual decrease in strength and balance with multiple falls, legs give out, UEs not able to hold self up. Poor activity level with limited ability to stand or walk due to weakness and LBP. Has had a hard time getting out of house. Removal of parathyroid gland earlier this year has resulted in increase in weight . 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 Wears orthotics majority of the time. Uses cane and 4WW. Going to be measured for custom compression stockings at [facility] pharmacy. Uses heat for LBP, arthritis Tylenol. Prior Treatments and Tests H/O foot surgery History of aortic valve replacement History of hip replacement History of knee replacement History of knee replacement Status post hysterectomy COPD (chronic obstructive pulmonary disease) GERD (gastroesophageal reflux disease) Hyperlipidemia Hypertension Morbid obesity Neuropathy Treatment Goals Patient/Caregiver Goals Hoping to gain more strength, be able to tolerate standing and walking, better balance. 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 PT-OP-H Neuro Start: 08/15/19 08:03 Freq: Status: Active Protocol: Document 08/15/19 08:11 [facility]AK (Rec: 08/15/19 08:50 [facility] [id number]) Sensation Evaluation Gross Sensation Gross Sensation Left LE Impaired,Right LE Impaired Sensation Description Paresthesia,Numbness PT-OP-K Range of Motion Start: 08/15/19 08:03 Freq: Status: Active Protocol: Document 08/15/19 08:11 [facility] (Rec: 08/15/19 08:50 [facility] [id number]) Lumbar Spine Range of Motion Lumbar Spine Active ROM Limitations Pain Hip Goniometric Range of Motion Hip gabby Hip ROM WFL Yes Knee Goniometric Range of Motion Knee ROM Limitations Knee ROM Limitations Pain Comments genu valgus right Ankle and Foot Goniometric Range of Motion Ankle and Foot gabby Dorsiflexion with Knee Flexed 0 PT-OP-M Strength Start: 08/15/19 08:03 Freq: Status: Active Protocol: Document 08/15/19 08:11 [facility] (Rec: 08/15/19 08:50 [facility] [id number]) Trunk Strength Trunk Manual Muscle Testing Flexion 2- Poor- Extension 2- Poor- Hip Strength Hip Manual Muscle Testing gabby Flexion (L2) 3+ Fair+ Extension (S1) 2 Poor Abduction 2 Poor Adduction 2 Poor External Rotation 2- Poor- Internal Rotation 2- Poor- Knee Strength Knee Manual Muscle Testing gabby Flexion (S2) 4- Good- Extension (L3) 4- Good- Ankle/Foot Strength Ankle and Foot Manual Muscle Testing gabby Dorsiflexion (L4) 3+ Fair+ Plantarflexion (S1) 4- Good- PT-OP-Q Treatments Start: 08/15/19 08:03 Freq: Status: Active Protocol: Document 08/15/19 08:11 [facility] (Rec: 08/15/19 16:30 [facility] [id number]) Self-Care/Home Management Treatment Education Patient Education Home Exercise Program Other Education explore videos for seated exercise program PT-OP-S Aquatic Treatment Start: 08/15/19 08:03 Freq: Status: Active Protocol: Document 09/13/19 16:53 [facility] (Rec: 09/13/19 17:00 [facility] [id number]) Aquatics Treatment Pool Entry/Exit Pool Entry/Exit Method Stairs Assistance Standby Assistance,Contact Guard Assistance,Verbal Cues Water Walking barrell walk Water Level Chest Level Level of Assistance Standby Assistance,Verbal Cues march Water Level Chest Level Level of Assistance Standby Assistance,Verbal Cues straight leg walk Water Level Chest Level Level of Assistance Standby Assistance,Verbal Cues start stop Water Level Chest Level Backwards Water Level Chest Level Level of Assistance Standby Assistance,Verbal Cues Sideways Water Level Chest Level Level of Assistance Standby Assistance,Verbal Cues Forwards Water Level Chest Level Level of Assistance Standby Assistance,Verbal Cues Lower Extremity Exercises squats Body Position Standing Water Level Waist Level Reps/Duration 15x HS curls Body Position Standing Water Level Chest Level Reps/Duration x 15 4 Details Knee flexion/extension Body Position Standing Water Level Chest Level Reps/Duration x 15 reps 3 Details L.E. circumduction Body Position Standing Water Level Chest Level Reps/Duration x 15 reps 2 Details Hip AB/AD Body Position Standing Water Level Chest Level Reps/Duration x 15 reps 1 Details Hip flex/ext Body Position Standing Water Level Chest Level Reps/Duration x 15 reps Lower Extremity Stretches Hip flexor Body Position Standing Water Level Chest Level Reps/Duration 2 x45 sec B Quads Body Position Standing Water Level Chest Level Equipment Small Noodle Reps/Duration 2 x45 sec HS Body Position Standing Water Level Chest Level Equipment Small Noodle Reps/Duration 2 x45 sec Balance tandem gait Body Position Standing Water Level Chest Level Reps/Duration 2 min noodle sit Reps/Duration 3 min Comments mod assist SLS Reps/Duration 3x each LE step up/down lg box Body Position Standing Water Level Waist Level Reps/Duration 10x Comments SBA to min assist [place] Activities [place] Activities Bicycle,Bicycle Backwards, Cross Country,Running Other Activities bicycle with no UE's Equipment flotation belt Duration 15 PT-OP-T Assessment and Plan Start: 08/15/19 08:03 Freq: Status: Active Protocol: Document 09/13/19 16:53 [facility] (Rec: 09/13/19 17:00 [facility] [id number]) Physical Therapy Assessment Other Concerns Barriers to Rehabilitation chronicity of condition low activity tolerance, SOB kidney dysfunction Goals Four Impairment activity tolerance Store Operations Specialist Goal (LTG) Patient to tolerate 45 minute aquatic exercise program without increase in pain or excess fatigue and be independent in aquatic ex program for skilled nursing fitness and pain management. Three Impairment Gait: limited to household, very short distance community (<250') Short Term Goal (STG) Patient able to walk 500' with 4WW before requiring a rest break STG Duration 6 wks Store Operations Specialist Goal (LTG) Patient able to tolerate 10-15 min of standing and walking to allow her to do brief shopping trips before needing to sit down for rest break LTG Duration 12 wks Two Impairment weakness bilateral LE's Short Term Goal (STG) Patient to be independent and compliant with HEP to include use of a video for increased compliance. STG Duration 6 wks Custodial Goal (LTG) Patient to demonstrate improvement in LE strength by 1 grade throughout to improve her functional mobility and safety LTG Duration 12 wks One Impairment balance dysfunction with multiple falls, high fall risk category Short Term Goal (STG) No reported falls STG Duration 6 wks Custodial Goal (LTG) Patient to demonstrate a improvement in her score on Tinettti gait and balance assessment from high fall risk to no greater than moderate fall risk LTG Duration 12 wks Eight Impairment weakness left shoulder Custodial Goal (LTG) Patient left UE strength at least 4+/5 Seven Impairment activity tolerance Store Operations Specialist Goal (LTG) Patient able to reach overhead and behind her back with minimal to no pain for purposes of ADL's and usual activities Assessment Summary Assessment Standing tolerance remains limited. patient had difficulty with sitting balance on noodle. Able to increase her intensity with LE exercises, less rest breaks with deep water activities. Physical Therapy Plan Frequency and Duration Frequency of Treatment 2x/wk Duration of Treatment 12 wks Plan of Care Start Date 08/15/19 Plan of Care End Date 11/13/19 Therapeutic Interventions Therapeutic Interventions Aquatic Therapy,Balance Training,Gait Training,Home Exercise Program,Manual Therapy,Neuromuscular Re- education,Patient/Caregiver Education,Self-Care/Home Management,Therapeutic Activities,Therapeutic Exercises Next Visit Focus/Plan Next Note Type Treatment Note Next Visit Plan Increased balance challenge activities, continue progressive strengthening.
--- NOTE | 2019-09-20 18:42 | PT.OTN ---
Current Diagnoses Other abnormalities of gait and mobility (09/20/19) Physical Therapy Treatment Note PT-OP-A Visit Information Start: 08/15/19 08:03 Freq: Status: Active Protocol: Document 09/20/19 13:15 LJ (Rec: 09/20/19 18:42 LJ [id number]) Out-Patient Physical Therapy Visit Information Visit Information Visit Type Aquatic Treatment Note Visit Start Time 13:15 Visit Stop Time 14:00 Total Visit Minutes 45 Visit Number 9/10 Number of MUSIC REHABILITATION THERAPIST Visits 1 PT-OP-B Current Condition Start: 08/15/19 08:03 Freq: Status: Active Protocol: Document 08/15/19 08:11 SAK (Rec: 08/15/19 08:50 SAK [id number]) Current Condition History of Current Condition Onset Date 10+ years Current Complaints poor balance with multiple falls History of Current Condition Reports long history of gradual decrease in strength and balance with multiple falls, legs give out, UEs not able to hold self up. Poor activity level with limited ability to stand or walk due to weakness and LBP. Has had a hard time getting out of house. Removal of parathyroid gland earlier this year has resulted in increase in weight . 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 Wears orthotics majority of the time. Uses cane and 4WW. Going to be measured for custom compression stockings at [facility] pharmacy. Uses heat for LBP, arthritis Tylenol. Prior Treatments and Tests H/O foot surgery History of aortic valve replacement History of hip replacement History of knee replacement History of knee replacement Status post hysterectomy COPD (chronic obstructive pulmonary disease) GERD (gastroesophageal reflux disease) Hyperlipidemia Hypertension Morbid obesity Neuropathy Treatment Goals Patient/Caregiver Goals Hoping to gain more strength, be able to tolerate standing and walking, better balance. 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 due to arthritis in her hands Functional Limitations- Recreation/ unable to make art or go to [employer] Personal Factors Other Personal Factors That May Effect SOB, arthritis throughout, Therapy/Recovery including hands PT-OP-C Subjective Start: 08/15/19 08:03 Freq: Status: Active Protocol: Document 09/20/19 13:15 LJ (Rec: 09/20/19 18:42 LJ [id number]) OP-PT Subjective Patient Comments Patient Comments Pt reports she is having less pain and feels like she can move better PT-OP-H Neuro Start: 08/15/19 08:03 Freq: Status: Active Protocol: Document 08/15/19 08:11 SAK (Rec: 08/15/19 08:50 SAK [id number]) Sensation Evaluation Gross Sensation Gross Sensation Left LE Impaired,Right LE Impaired Sensation Description Paresthesia,Numbness PT-OP-K Range of Motion Start: 08/15/19 08:03 Freq: Status: Active Protocol: Document 08/15/19 08:11 SAK (Rec: 08/15/19 08:50 SAK [id number]) Lumbar Spine Range of Motion Lumbar Spine Active ROM Limitations Pain Hip Goniometric Range of Motion Hip gabby Hip ROM WFL Yes Knee Goniometric Range of Motion Knee ROM Limitations Knee ROM Limitations Pain Comments genu valgus right Ankle and Foot Goniometric Range of Motion Ankle and Foot gabby Dorsiflexion with Knee Flexed 0 PT-OP-M Strength Start: 08/15/19 08:03 Freq: Status: Active Protocol: Document 08/15/19 08:11 SAK (Rec: 08/15/19 08:50 SAK [id number]) Trunk Strength Trunk Manual Muscle Testing Flexion 2- Poor- Extension 2- Poor- Hip Strength Hip Manual Muscle Testing gabby Flexion (L2) 3+ Fair+ Extension (S1) 2 Poor Abduction 2 Poor Adduction 2 Poor External Rotation 2- Poor- Internal Rotation 2- Poor- Knee Strength Knee Manual Muscle Testing gabby Flexion (S2) 4- Good- Extension (L3) 4- Good- Ankle/Foot Strength Ankle and Foot Manual Muscle Testing gabby Dorsiflexion (L4) 3+ Fair+ Plantarflexion (S1) 4- Good- PT-OP-Q Treatments Start: 08/15/19 08:03 Freq: Status: Active Protocol: Document 08/15/19 08:11 SAK (Rec: 08/15/19 16:30 SAK [id number]) Self-Care/Home Management Treatment Education Patient Education Home Exercise Program Other Education explore videos for seated exercise program PT-OP-S Aquatic Treatment Start: 08/15/19 08:03 Freq: Status: Active Protocol: Document 09/20/19 13:15 KAITLIN (Rec: 09/20/19 18:42 LJ [id number]) Aquatics Treatment Pool Entry/Exit Pool Entry/Exit Method Stairs Assistance Standby Assistance,Verbal Cues Water Walking [place] March Water Level Chest Level Level of Assistance Verbal Cues march Water Level Chest Level Level of Assistance Standby Assistance,Verbal Cues straight leg walk Water Level Chest Level Level of Assistance Standby Assistance,Verbal Cues start stop Water Level Chest Level Comments changing directions Backwards Water Level Chest Level Level of Assistance Standby Assistance,Verbal Cues Sideways Water Level Chest Level Level of Assistance Standby Assistance,Verbal Cues Forwards Water Level Chest Level Level of Assistance Standby Assistance,Verbal Cues Lower Extremity Exercises SLS Water Level Chest Level Comments during start and stop/ directionsl changes squats Body Position Standing Water Level Waist Level Reps/Duration 15x Comments on box in shallowest water Hip figure 8 Body Position Standing Water Level Chest Level Reps/Duration x 10 HS curls Body Position Standing Water Level Chest Level Reps/Duration x 15 4 Details Knee flexion/extension Body Position Standing Water Level Chest Level Reps/Duration x 15 reps 3 Details L.E. circumduction Body Position Standing Water Level Chest Level Reps/Duration x 15 reps 2 Details Hip AB/AD Body Position Standing Water Level Chest Level Reps/Duration x 15 reps 1 Details Hip flex/ext Body Position Standing Water Level Chest Level Reps/Duration x 15 reps Comments pain with ext on RLE Lower Extremity Stretches Hip flexor Body Position Standing Water Level Chest Level Reps/Duration 2 x45 sec B Quads Body Position Standing Water Level Chest Level Equipment Small Noodle Reps/Duration 2 x45 sec HS Body Position Standing Water Level Chest Level Equipment Small Noodle Reps/Duration 2 x45 sec Upper Extremity Exercises scapular retracton Body Position Standing Water Level Neck Level Reps/Duration 10 Comments manual cueing 1 Details Shoulder rolls/shrugs Body Position Standing Water Level Neck Level Spinal Exercises 1 Details U.E. Horiz AB/AD, shoulder flexion Body Position Standing Water Level Chest Level Comments With core stabilization emphasis, bilateral and unilateral Balance tandem gait Body Position Standing Water Level Chest Level Reps/Duration 2 min Eagle Activities Eagle Activities Bicycle,Cross [place],Hip Abduction/Adduction Other Activities vertical flutter kicks cues for vertical alignment Equipment flotation belt Duration 12 PT-OP-T Assessment and Plan Start: 08/15/19 08:03 Freq: Status: Active Protocol: Document 09/20/19 13:15 KAITLIN (Rec: 09/20/19 18:42 LJ [id number]) Physical Therapy Assessment Rehab Potential Rehabilitation Potential Fair Evaluation Complexity Number of Personal Factors/Comorbidities 3 or More Number of Body Systems Impaired 3 Clinical Presentation at Evaluation Evolving Impairments Impairments Activity Tolerance,Balance, Strength Other Concerns Barriers to Rehabilitation chronicity of condition low activity tolerance, SOB kidney dysfunction Goals Four Impairment activity tolerance Director Blood Bank Goal (LTG) Patient to tolerate 45 minute aquatic exercise program without increase in pain or excess fatigue and be 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 Three Impairment Gait: limited to household, very short distance community (<250') Short Term Goal (STG) Patient able to walk 500' with 4WW before requiring a rest break STG Duration 6 wks Chcf Goal (LTG) Patient able to tolerate 10-15 min of standing and walking to allow her to do brief shopping trips before needing to sit down for rest break LTG Duration 12 wks Two Impairment weakness bilateral LE's Short Term Goal (STG) Patient to be independent and compliant with HEP to include use of a video for increased compliance. STG Duration 6 wks Director Blood Bank Goal (LTG) Patient to demonstrate improvement in LE strength by 1 grade throughout to improve her functional mobility and safety LTG Duration 12 wks One Impairment balance dysfunction with multiple falls, high fall risk category Short Term Goal (STG) No reported falls STG Duration 6 wks Director Blood Bank Goal (LTG) Patient to demonstrate a improvement in her score on Tinettti gait and balance assessment from high fall risk to no greater than moderate fall risk LTG Duration 12 wks Eight Impairment weakness left shoulder Chcf Goal (LTG) Patient left UE strength at least 4+/5 Seven Impairment activity tolerance Director Blood Bank Goal (LTG) Patient able to reach overhead and behind her back with minimal to no pain for purposes of ADL's and usual activities Assessment Summary Assessment Pt had no incease in pain. She performed fair with directional changes/start-stop walking. Squats on box were tolerated well w/o handhold on wall. She did not need a rest break in deep water exercises . Physical Therapy Plan Frequency and Duration Frequency of Treatment 2x/wk Duration of Treatment 12 wks Plan of Care Start Date 08/15/19 Plan of Care End Date 11/13/19 Therapeutic Interventions Therapeutic Interventions Aquatic Therapy,Balance Training,Gait Training,Home Exercise Program,Manual Therapy,Neuromuscular Re- education,Patient/Caregiver Education,Self-Care/Home Management,Therapeutic Activities,Therapeutic Exercises Next Visit Focus/Plan Next Note Type Treatment Note Next Visit Plan Increased balance challenge activities, continue progressive strengthening. Add resistance equipment with LE exercises.
--- NOTE | 2019-10-04 15:28 | PT.OTN ---
Current Diagnoses Other abnormalities of gait and mobility (10/04/19) Physical Therapy Treatment Note PT-OP-A Visit Information Start: 08/15/19 08:03 Freq: Status: Active Protocol: Document 10/04/19 11:45 LJ (Rec: 10/04/19 15:28 LJ [id number]) Out-Patient Physical Therapy Visit Information Visit Information Visit Type Aquatic Treatment Note Visit Start Time 11:45 Visit Stop Time 12:30 Total Visit Minutes 45 Visit Number 10/ Number of RUBBER GRINDER Visits 2 PT-OP-B Current Condition Start: 08/15/19 08:03 Freq: Status: Active Protocol: Document 08/15/19 08:11 SAK (Rec: 08/15/19 08:50 SAK [id number]) Current Condition History of Current Condition Onset Date 10+ years Current Complaints poor balance with multiple falls History of Current Condition Reports long history of gradual decrease in strength and balance with multiple falls, legs give out, UEs not able to hold self up. Poor activity level with limited ability to stand or walk due to weakness and LBP. Has had a hard time getting out of house. Removal of parathyroid gland earlier this year has resulted in increase in weight . 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 Wears orthotics majority of the time. Uses cane and 4WW. Going to be measured for custom compression stockings at [facility] pharmacy. Uses heat for LBP, arthritis Tylenol. Prior Treatments and Tests H/O foot surgery History of aortic valve replacement History of hip replacement History of knee replacement History of knee replacement Status post hysterectomy COPD (chronic obstructive pulmonary disease) GERD (gastroesophageal reflux disease) Hyperlipidemia Hypertension Morbid obesity Neuropathy Treatment Goals Patient/Caregiver Goals Hoping to gain more strength, be able to tolerate standing and walking, better balance. 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 States she was sick last week but still got up and moved around PT-OP-H Neuro Start: 08/15/19 08:03 Freq: Status: Active Protocol: Document 08/15/19 08:11 SAK (Rec: 08/15/19 08:50 SAK [id number]) Sensation Evaluation Gross Sensation Gross Sensation Left LE Impaired,Right LE Impaired Sensation Description Paresthesia,Numbness PT-OP-K Range of Motion Start: 08/15/19 08:03 Freq: Status: Active Protocol: Document 08/15/19 08:11 SAK (Rec: 08/15/19 08:50 SAK [id number]) Lumbar Spine Range of Motion Lumbar Spine Active ROM Limitations Pain Hip Goniometric Range of Motion Hip gabby Hip ROM WFL Yes Knee Goniometric Range of Motion Knee ROM Limitations Knee ROM Limitations Pain Comments genu valgus right Ankle and Foot Goniometric Range of Motion Ankle and Foot gabby Dorsiflexion with Knee Flexed 0 PT-OP-M Strength Start: 08/15/19 08:03 Freq: Status: Active Protocol: Document 08/15/19 08:11 SAK (Rec: 08/15/19 08:50 SAK [id number]) Trunk Strength Trunk Manual Muscle Testing Flexion 2- Poor- Extension 2- Poor- Hip Strength Hip Manual Muscle Testing gabby Flexion (L2) 3+ Fair+ Extension (S1) 2 Poor Abduction 2 Poor Adduction 2 Poor External Rotation 2- Poor- Internal Rotation 2- Poor- Knee Strength Knee Manual Muscle Testing gabby Flexion (S2) 4- Good- Extension (L3) 4- Good- Ankle/Foot Strength Ankle and Foot Manual Muscle Testing gabby Dorsiflexion (L4) 3+ Fair+ Plantarflexion (S1) 4- Good- PT-OP-Q Treatments Start: 08/15/19 08:03 Freq: Status: Active Protocol: Document 08/15/19 08:11 SAK (Rec: 08/15/19 16:30 SAK [id number]) Self-Care/Home Management Treatment Education Patient Education Home Exercise Program Other Education explore videos for seated exercise program PT-OP-S Aquatic Treatment Start: 08/15/19 08:03 Freq: Status: Active Protocol: Document 10/04/19 11:45 LJ (Rec: 10/04/19 15:28 LJ [id number]) Aquatics Treatment Pool Entry/Exit Pool Entry/Exit Method Stairs Assistance Standby Assistance Water Walking Tandem Gait Water Level Chest Level Comments several LOB march Water Level Chest Level Level of Assistance Standby Assistance,Verbal Cues Comments arms side sweeping straight leg walk Water Level Chest Level Level of Assistance Standby Assistance start stop Water Level Chest Level Comments changing directions Backwards Water Level Chest Level Level of Assistance Standby Assistance,Verbal Cues Sideways Water Level Chest Level Level of Assistance Standby Assistance Forwards Water Level Chest Level Level of Assistance Standby Assistance Lower Extremity Exercises 4 Details Knee flexion/extension Body Position Standing Water Level Chest Level Equipment Ankle Weight- 5.0# Reps/Duration x 15 reps Comments braced at wall 3 Details L.E. circumduction Body Position Standing Water Level Chest Level Equipment Ankle Weight- 5.0# Reps/Duration x 15 reps 2 Details Hip AB/AD Body Position Standing Water Level Chest Level Equipment Ankle Weight- 5.0# Reps/Duration x 15 reps Lower Extremity Stretches Quads Body Position Standing Water Level Chest Level Equipment Small Noodle Reps/Duration 2 x45 sec HS Body Position Standing Water Level Chest Level Equipment Small Noodle Reps/Duration 2 x45 sec Upper Extremity Exercises 1 Details Shoulder rolls/shrugs Body Position Standing Water Level Neck Level Spinal Exercises 1 Details U.E. Horiz AB/AD, shoulder flexion Body Position Standing Water Level Chest Level Comments With core stabilization emphasis, bilateral and unilateral Balance step up/down lg box Body Position Standing Water Level Waist Level Reps/Duration 10x all directions Comments occasional hh on wall Creola Activities Creola Activities Bicycle,Hip Abduction/ Adduction,Sit Kicks Equipment no belt Duration 15 PT-OP-T Assessment and Plan Start: 08/15/19 08:03 Freq: Status: Active Protocol: Document 10/04/19 11:45 LJ (Rec: 10/04/19 15:28 LJ [id number]) Physical Therapy Assessment Rehab Potential Rehabilitation Potential Fair Evaluation Complexity Number of Personal Factors/Comorbidities 3 or More Number of Body Systems Impaired 3 Clinical Presentation at Evaluation Evolving Impairments Impairments Activity Tolerance,Balance, Strength Other Concerns Barriers to Rehabilitation chronicity of condition low activity tolerance, SOB kidney dysfunction Goals Four Impairment activity tolerance Fpc Goal (LTG) Patient to tolerate 45 minute aquatic exercise program without increase in pain or excess fatigue and 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 Three Impairment Gait: limited to household, very short distance community (<250') Short Term Goal (STG) Patient able to walk 500' with 4WW before requiring a rest break STG Duration 6 wks Fpc Goal (LTG) Patient able to tolerate 10-15 min of standing and walking to allow her to do brief shopping trips before needing to sit down for rest break LTG Duration 12 wks Two Impairment weakness bilateral LE's Short Term Goal (STG) Patient to be independent and compliant with HEP to include use of a video for increased compliance. STG Duration 6 wks Fpc Goal (LTG) Patient to demonstrate improvement in LE strength by 1 grade throughout to improve her functional mobility and safety LTG Duration 12 wks One Impairment balance dysfunction with multiple falls, high fall risk category Short Term Goal (STG) No reported falls STG Duration 6 wks Rn Acute Goal (LTG) Patient to demonstrate a improvement in her score on Tinettti gait and balance assessment from high fall risk to no greater than moderate fall risk LTG Duration 12 wks Eight Impairment weakness left shoulder Fpc Goal (LTG) Patient left UE strength at least 4+/5 Seven Impairment activity tolerance Rn Acute Goal (LTG) Patient able to reach overhead and behind her back with minimal to no pain for purposes of ADL's and usual activities Assessment Summary Assessment Pt did well with exercises this session. Her balance in walking appears to have improved. She was able to tolerate step up/down on box well with only a few taps on the wall for balance. Trialed different float systems in deep water and pt was able to float without any belt . No increase in pain. Physical Therapy Plan Frequency and Duration Frequency of Treatment 2x/wk Duration of Treatment 12 wks Therapeutic Interventions Therapeutic Interventions Aquatic Therapy,Balance Training,Gait Training,Home Exercise Program,Manual Therapy,Neuromuscular Re- education,Patient/Caregiver Education,Self-Care/Home Management,Therapeutic Activities,Therapeutic Exercises Next Visit Focus/Plan Next Note Type Treatment Note Next Visit Plan Increased balance challenge activities, continue progressive strengthening. Add resistance equipment with LE exercises.
--- NOTE | 2019-10-09 14:56 | PT.OTN ---
Current Diagnoses Other abnormalities of gait and mobility (10/09/19) Physical Therapy Treatment Note PT-OP-A Visit Information Start: 08/15/19 08:03 Freq: Status: Active Protocol: Document 10/09/19 11:00 LJ (Rec: 10/09/19 14:55 LJ [id number]) Out-Patient Physical Therapy Visit Information Visit Information Visit Type Aquatic Treatment Note Visit Start Time 11:00 Visit Stop Time 11:45 Total Visit Minutes 45 Number of BUTT WELDER Visits 3 PT-OP-B Current Condition Start: 08/15/19 08:03 Freq: Status: Active Protocol: Document 08/15/19 08:11 SAK (Rec: 08/15/19 08:50 SAK [id number]) Current Condition History of Current Condition Onset Date 10+ years Current Complaints poor balance with multiple falls History of Current Condition Reports long history of gradual decrease in strength and balance with multiple falls, legs give out, UEs not able to hold self up. Poor activity level with limited ability to stand or walk due to weakness and LBP. Has had a hard time getting out of house. Removal of parathyroid gland earlier this year has resulted in increase in weight . 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 Wears orthotics majority of the time. Uses cane and 4WW. Going to be measured for custom compression stockings at [facility]. Uses heat for LBP, arthritis Tylenol. Prior Treatments and Tests H/O foot surgery History of aortic valve replacement History of hip replacement History of knee replacement History of knee replacement Status post hysterectomy COPD (chronic obstructive pulmonary disease) GERD (gastroesophageal reflux disease) Hyperlipidemia Hypertension Morbid obesity Neuropathy Treatment Goals Patient/Caregiver Goals Hoping to gain more strength, be able to tolerate standing and walking, better balance. 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 PT-OP-H Neuro Start: 08/15/19 08:03 Freq: Status: Active Protocol: Document 08/15/19 08:11 SAK (Rec: 08/15/19 08:50 SAK [id number]) Sensation Evaluation Gross Sensation Gross Sensation Left LE Impaired,Right LE Impaired Sensation Description Paresthesia,Numbness PT-OP-K Range of Motion Start: 08/15/19 08:03 Freq: Status: Active Protocol: Document 08/15/19 08:11 SAK (Rec: 08/15/19 08:50 SAK [id number]) Lumbar Spine Range of Motion Lumbar Spine Active ROM Limitations Pain Hip Goniometric Range of Motion Hip gabby Hip ROM WFL Yes Knee Goniometric Range of Motion Knee ROM Limitations Knee ROM Limitations Pain Comments genu valgus right Ankle and Foot Goniometric Range of Motion Ankle and Foot gabby Dorsiflexion with Knee Flexed 0 PT-OP-M Strength Start: 08/15/19 08:03 Freq: Status: Active Protocol: Document 08/15/19 08:11 SAK (Rec: 08/15/19 08:50 SAK [id number]) Trunk Strength Trunk Manual Muscle Testing Flexion 2- Poor- Extension 2- Poor- Hip Strength Hip Manual Muscle Testing gabby Flexion (L2) 3+ Fair+ Extension (S1) 2 Poor Abduction 2 Poor Adduction 2 Poor External Rotation 2- Poor- Internal Rotation 2- Poor- Knee Strength Knee Manual Muscle Testing gabby Flexion (S2) 4- Good- Extension (L3) 4- Good- Ankle/Foot Strength Ankle and Foot Manual Muscle Testing gabby Dorsiflexion (L4) 3+ Fair+ Plantarflexion (S1) 4- Good- PT-OP-Q Treatments Start: 08/15/19 08:03 Freq: Status: Active Protocol: Document 08/15/19 08:11 SAK (Rec: 08/15/19 16:30 SAK [id number]) Self-Care/Home Management Treatment Education Patient Education Home Exercise Program Other Education explore videos for seated exercise program PT-OP-S Aquatic Treatment Start: 08/15/19 08:03 Freq: Status: Active Protocol: Document 10/09/19 11:00 LJ (Rec: 10/09/19 14:55 LJ [id number]) Aquatics Treatment Pool Entry/Exit Pool Entry/Exit Method Stairs Assistance Standby Assistance Water Walking Tandem Gait Water Level Chest Level Comments several LOB [place] October Water Level Chest Level Level of Assistance Verbal Cues Comments swinging arms side to side straight leg walk Water Level Chest Level Level of Assistance Standby Assistance Sideways Water Level Chest Level Level of Assistance Standby Assistance Forwards Water Level Chest Level Level of Assistance Standby Assistance Lower Extremity Exercises squats Body Position Standing Water Level Waist Level Reps/Duration 15x Comments on box in shallowest water Hip figure 8 Body Position Standing Water Level Chest Level Reps/Duration x 10 HS curls Body Position Standing Water Level Chest Level Reps/Duration x 15 4 Details Knee flexion/extension Body Position Standing Water Level Chest Level Equipment Ankle Weight- 5.0# Reps/Duration x 15 reps Comments braced at wall 3 Details L.E. circumduction Body Position Standing Water Level Chest Level Equipment Ankle Weight- 5.0# Reps/Duration x 15 reps 2 Details Hip AB/AD Body Position Standing Water Level Chest Level Equipment Ankle Weight- 5.0# Reps/Duration x 15 reps 1 Details Hip flex/ext Body Position Standing Water Level Chest Level Reps/Duration x 15 reps Comments pain with ext on RLE Lower Extremity Stretches Quads Body Position Standing Water Level Chest Level Equipment Small Noodle Reps/Duration 2 x45 sec HS Body Position Standing Water Level Chest Level Equipment Small Noodle Reps/Duration 2 x45 sec Upper Extremity Exercises 2 Details Shoulder circles Body Position Standing Water Level Neck Level 1 Details Shoulder rolls/shrugs Body Position Standing Water Level Neck Level Balance tandem gait Body Position Standing Water Level Chest Level Reps/Duration 2 min Comments no arms step up/down lg box Body Position Standing Water Level Waist Level Reps/Duration 10x all directions Comments occasional hh on wall [place] Activities [place] Activities Bicycle,Hip Abduction/ Adduction,Sit Kicks Equipment Lg belt Duration 10 PT-OP-T Assessment and Plan Start: 08/15/19 08:03 Freq: Status: Active Protocol: Document 10/09/19 11:00 KAITLIN (Rec: 10/09/19 14:55 KAITLIN [id number]) Physical Therapy Assessment Rehab Potential Rehabilitation Potential Fair Evaluation Complexity Number of Personal Factors/Comorbidities 3 or More Number of Body Systems Impaired 3 Clinical Presentation at Evaluation Evolving Impairments Impairments Activity Tolerance,Balance, Strength Other Concerns Barriers to Rehabilitation chronicity of condition low activity tolerance, SOB kidney dysfunction Goals Four Impairment activity tolerance Sand Cutter Goal (LTG) Patient to tolerate 45 minute aquatic exercise program without increase in pain or excess fatigue and be independent in aquatic ex program for assistant customer 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 Three Impairment Gait: limited to household, very short distance community (<250') Short Term Goal (STG) Patient able to walk 500' with 4WW before requiring a rest break STG Duration 6 wks Sand Cutter Goal (LTG) Patient able to tolerate 10-15 min of standing and walking to allow her to do brief shopping trips before needing to sit down for rest break LTG Duration 12 wks Two Impairment weakness bilateral LE's Short Term Goal (STG) Patient to be independent and compliant with HEP to include use of a video for increased compliance. STG Duration 6 wks Sand Cutter Goal (LTG) Patient to demonstrate improvement in LE strength by 1 grade throughout to improve her functional mobility and safety LTG Duration 12 wks One Impairment balance dysfunction with multiple falls, high fall risk category Short Term Goal (STG) No reported falls STG Duration 6 wks Group Home Goal (LTG) Patient to demonstrate a improvement in her score on Tinettti gait and balance assessment from high fall risk to no greater than moderate fall risk LTG Duration 12 wks Eight Impairment weakness left shoulder Group Home Goal (LTG) Patient left UE strength at least 4+/5 Seven Impairment activity tolerance Group Home Goal (LTG) Patient able to reach overhead and behind her back with minimal to no pain for purposes of ADL's and usual activities Assessment Summary Assessment Pt tolerated exercises well this session. Left knee tightness noted during quad stretching. Pt needed cues for keeping vertical position in deep water. Physical Therapy Plan Frequency and Duration Frequency of Treatment 2x/wk Duration of Treatment 12 wks Therapeutic Interventions Therapeutic Interventions Aquatic Therapy,Balance Training,Gait Training,Home Exercise Program,Manual Therapy,Neuromuscular Re- education,Patient/Caregiver Education,Self-Care/Home Management,Therapeutic Activities,Therapeutic Exercises Next Visit Focus/Plan Next Note Type Treatment Note Next Visit Plan request more PT sessions
--- NOTE | 2019-10-09 15:29 | PT.OTN ---
Current Diagnoses Other abnormalities of gait and mobility (10/09/19) Physical Therapy Treatment Note PT-OP-A Visit Information Start: 08/15/19 08:03 Freq: Status: Active Protocol: Document 10/09/19 11:00 LJ (Rec: 10/09/19 14:55 LJ [id number]) Out-Patient Physical Therapy Visit Information Visit Information Visit Type Aquatic Treatment Note Visit Start Time 11:00 Visit Stop Time 11:45 Total Visit Minutes 45 Number of BUSINESS PROCESS ENGINEER Visits 3 PT-OP-B Current Condition Start: 08/15/19 08:03 Freq: Status: Active Protocol: Document 08/15/19 08:11 SAK (Rec: 08/15/19 08:50 SAK [id number]) Current Condition History of Current Condition Onset Date 10+ years Current Complaints poor balance with multiple falls History of Current Condition Reports long history of gradual decrease in strength and balance with multiple falls, legs give out, UEs not able to hold self up. Poor activity level with limited ability to stand or walk due to weakness and LBP. Has had a hard time getting out of house. Removal of parathyroid gland earlier this year has resulted in increase in weight . 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 Wears orthotics majority of the time. Uses cane and 4WW. Going to be measured for custom compression stockings at [facility] pharmacy. Uses heat for LBP, arthritis Tylenol. Prior Treatments and Tests H/O foot surgery History of aortic valve replacement History of hip replacement History of knee replacement History of knee replacement Status post hysterectomy COPD (chronic obstructive pulmonary disease) GERD (gastroesophageal reflux disease) Hyperlipidemia Hypertension Morbid obesity Neuropathy Treatment Goals Patient/Caregiver Goals Hoping to gain more strength, be able to tolerate standing and walking, better balance. 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 PT-OP-H Neuro Start: 08/15/19 08:03 Freq: Status: Active Protocol: Document 08/15/19 08:11 SAK (Rec: 08/15/19 08:50 SAK [id number]) Sensation Evaluation Gross Sensation Gross Sensation Left LE Impaired,Right LE Impaired Sensation Description Paresthesia,Numbness PT-OP-K Range of Motion Start: 08/15/19 08:03 Freq: Status: Active Protocol: Document 08/15/19 08:11 SAK (Rec: 08/15/19 08:50 SAK [id number]) Lumbar Spine Range of Motion Lumbar Spine Active ROM Limitations Pain Hip Goniometric Range of Motion Hip gabby Hip ROM WFL Yes Knee Goniometric Range of Motion Knee ROM Limitations Knee ROM Limitations Pain Comments genu valgus right Ankle and Foot Goniometric Range of Motion Ankle and Foot gabby Dorsiflexion with Knee Flexed 0 PT-OP-M Strength Start: 08/15/19 08:03 Freq: Status: Active Protocol: Document 08/15/19 08:11 SAK (Rec: 08/15/19 08:50 SAK [id number]) Trunk Strength Trunk Manual Muscle Testing Flexion 2- Poor- Extension 2- Poor- Hip Strength Hip Manual Muscle Testing gabby Flexion (L2) 3+ Fair+ Extension (S1) 2 Poor Abduction 2 Poor Adduction 2 Poor External Rotation 2- Poor- Internal Rotation 2- Poor- Knee Strength Knee Manual Muscle Testing gabby Flexion (S2) 4- Good- Extension (L3) 4- Good- Ankle/Foot Strength Ankle and Foot Manual Muscle Testing gabby Dorsiflexion (L4) 3+ Fair+ Plantarflexion (S1) 4- Good- PT-OP-Q Treatments Start: 08/15/19 08:03 Freq: Status: Active Protocol: Document 08/15/19 08:11 SAK (Rec: 08/15/19 16:30 SAK [id number]) Self-Care/Home Management Treatment Education Patient Education Home Exercise Program Other Education explore videos for seated exercise program PT-OP-S Aquatic Treatment Start: 08/15/19 08:03 Freq: Status: Active Protocol: Document 10/09/19 11:00 LJ (Rec: 10/09/19 14:55 LJ [id number]) Aquatics Treatment Pool Entry/Exit Pool Entry/Exit Method Stairs Assistance Standby Assistance Water Walking Tandem Gait Water Level Chest Level Comments several LOB [place] October Water Level Chest Level Level of Assistance Verbal Cues Comments swinging arms side to side straight leg walk Water Level Chest Level Level of Assistance Standby Assistance Sideways Water Level Chest Level Level of Assistance Standby Assistance Forwards Water Level Chest Level Level of Assistance Standby Assistance Lower Extremity Exercises squats Body Position Standing Water Level Waist Level Reps/Duration 15x Comments on box in shallowest water Hip figure 8 Body Position Standing Water Level Chest Level Reps/Duration x 10 HS curls Body Position Standing Water Level Chest Level Reps/Duration x 15 4 Details Knee flexion/extension Body Position Standing Water Level Chest Level Equipment Ankle Weight- 5.0# Reps/Duration x 15 reps Comments braced at wall 3 Details L.E. circumduction Body Position Standing Water Level Chest Level Equipment Ankle Weight- 5.0# Reps/Duration x 15 reps 2 Details Hip AB/AD Body Position Standing Water Level Chest Level Equipment Ankle Weight- 5.0# Reps/Duration x 15 reps 1 Details Hip flex/ext Body Position Standing Water Level Chest Level Reps/Duration x 15 reps Comments pain with ext on RLE Lower Extremity Stretches Quads Body Position Standing Water Level Chest Level Equipment Small Noodle Reps/Duration 2 x45 sec HS Body Position Standing Water Level Chest Level Equipment Small Noodle Reps/Duration 2 x45 sec Upper Extremity Exercises 2 Details Shoulder circles Body Position Standing Water Level Neck Level 1 Details Shoulder rolls/shrugs Body Position Standing Water Level Neck Level Balance tandem gait Body Position Standing Water Level Chest Level Reps/Duration 2 min Comments no arms step up/down lg box Body Position Standing Water Level Waist Level Reps/Duration 10x all directions Comments occasional hh on wall [place] Activities [place] Activities Bicycle,Hip Abduction/ Adduction,Sit Kicks Equipment Lg belt Duration 10 PT-OP-T Assessment and Plan Start: 08/15/19 08:03 Freq: Status: Active Protocol: Document 10/09/19 11:00 KAITLIN (Rec: 10/09/19 14:55 KAITLIN [id number]) Physical Therapy Assessment Rehab Potential Rehabilitation Potential Fair Evaluation Complexity Number of Personal Factors/Comorbidities 3 or More Number of Body Systems Impaired 3 Clinical Presentation at Evaluation Evolving Impairments Impairments Activity Tolerance,Balance, Strength Other Concerns Barriers to Rehabilitation chronicity of condition low activity tolerance, SOB kidney dysfunction Goals Four Impairment activity tolerance Real Estate Closer Goal (LTG) Patient to tolerate 45 minute aquatic exercise program without increase in pain or excess fatigue and be independent in 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 Three Impairment Gait: limited to household, very short distance community (<250') Short Term Goal (STG) Patient able to walk 500' with 4WW before requiring a rest break STG Duration 6 wks Real Estate Closer Goal (LTG) Patient able to tolerate 10-15 min of standing and walking to allow her to do brief shopping trips before needing to sit down for rest break LTG Duration 12 wks Two Impairment weakness bilateral LE's Short Term Goal (STG) Patient to be independent and compliant with HEP to include use of a video for increased compliance. STG Duration 6 wks Real Estate Closer Goal (LTG) Patient to demonstrate improvement in LE strength by 1 grade throughout to improve her functional mobility and safety LTG Duration 12 wks One Impairment balance dysfunction with multiple falls, high fall risk category Short Term Goal (STG) No reported falls STG Duration 6 wks Senior Care Goal (LTG) Patient to demonstrate a improvement in her score on Tinettti gait and balance assessment from high fall risk to no greater than moderate fall risk LTG Duration 12 wks Eight Impairment weakness left shoulder Senior Care Goal (LTG) Patient left UE strength at least 4+/5 Seven Impairment activity tolerance Senior Care Goal (LTG) Patient able to reach overhead and behind her back with minimal to no pain for purposes of ADL's and usual activities Assessment Summary Assessment Pt tolerated exercises well this session. Left knee tightness noted during quad stretching. Pt needed cues for keeping vertical position in deep water. Physical Therapy Plan Frequency and Duration Frequency of Treatment 2x/wk Duration of Treatment 12 wks Therapeutic Interventions Therapeutic Interventions Aquatic Therapy,Balance Training,Gait Training,Home Exercise Program,Manual Therapy,Neuromuscular Re- education,Patient/Caregiver Education,Self-Care/Home Management,Therapeutic Activities,Therapeutic Exercises Next Visit Focus/Plan Next Note Type Treatment Note Next Visit Plan request more PT sessions
--- NOTE | 2019-10-11 14:13 | PT.OTN ---
Current Diagnoses Other abnormalities of gait and mobility (10/11/19) Physical Therapy Treatment Note PT-OP-A Visit Information Start: 08/15/19 08:03 Freq: Status: Active Protocol: Document 10/11/19 11:45 SAK (Rec: 10/12/19 14:12 [facility] [id number]) Out-Patient Physical Therapy Visit Information Visit Information Visit Type Aquatic Treatment Note Visit Start Time 11:00 Visit Stop Time 11:45 Total Visit Minutes 45 Visit Number 08/04 Number of HANDMADE TILE ARTIST Visits 0 PT-OP-B Current Condition Start: 08/15/19 08:03 Freq: Status: Active Protocol: Document 08/15/19 08:11 SAK (Rec: 08/15/19 08:50 SAK [id number]) Current Condition History of Current Condition Onset Date 10+ years Current Complaints poor balance with multiple falls History of Current Condition Reports long history of gradual decrease in strength and balance with multiple falls, legs give out, UEs not able to hold self up. Poor activity level with limited ability to stand or walk due to weakness and LBP. Has had a hard time getting out of house. Removal of parathyroid gland earlier this year has resulted in increase in weight . 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 Wears orthotics majority of the time. Uses cane and 4WW. Going to be measured for custom compression stockings at [facility]. Uses heat for LBP, arthritis Tylenol. Prior Treatments and Tests H/O foot surgery History of aortic valve replacement History of hip replacement History of knee replacement History of knee replacement Status post hysterectomy COPD (chronic obstructive pulmonary disease) GERD (gastroesophageal reflux disease) Hyperlipidemia Hypertension Morbid obesity Neuropathy Treatment Goals Patient/Caregiver Goals Hoping to gain more strength, be able to tolerate standing and walking, better balance. 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 PT-OP-H Neuro Start: 08/15/19 08:03 Freq: Status: Active Protocol: Document 08/15/19 08:11 SAK (Rec: 08/15/19 08:50 SAK [id number]) Sensation Evaluation Gross Sensation Gross Sensation Left LE Impaired,Right LE Impaired Sensation Description Paresthesia,Numbness PT-OP-K Range of Motion Start: 08/15/19 08:03 Freq: Status: Active Protocol: Document 08/15/19 08:11 SAK (Rec: 08/15/19 08:50 SAK [id number]) Lumbar Spine Range of Motion Lumbar Spine Active ROM Limitations Pain Hip Goniometric Range of Motion Hip gabby Hip ROM WFL Yes Knee Goniometric Range of Motion Knee ROM Limitations Knee ROM Limitations Pain Comments genu valgus right Ankle and Foot Goniometric Range of Motion Ankle and Foot gabby Dorsiflexion with Knee Flexed 0 PT-OP-M Strength Start: 08/15/19 08:03 Freq: Status: Active Protocol: Document 08/15/19 08:11 SAK (Rec: 08/15/19 08:50 SAK [id number]) Trunk Strength Trunk Manual Muscle Testing Flexion 2- Poor- Extension 2- Poor- Hip Strength Hip Manual Muscle Testing gabby Flexion (L2) 3+ Fair+ Extension (S1) 2 Poor Abduction 2 Poor Adduction 2 Poor External Rotation 2- Poor- Internal Rotation 2- Poor- Knee Strength Knee Manual Muscle Testing gabby Flexion (S2) 4- Good- Extension (L3) 4- Good- Ankle/Foot Strength Ankle and Foot Manual Muscle Testing gabby Dorsiflexion (L4) 3+ Fair+ Plantarflexion (S1) 4- Good- PT-OP-Q Treatments Start: 08/15/19 08:03 Freq: Status: Active Protocol: Document 08/15/19 08:11 SAK (Rec: 08/15/19 16:30 [facility] [id number]) Self-Care/Home Management Treatment Education Patient Education Home Exercise Program Other Education explore videos for seated exercise program PT-OP-S Aquatic Treatment Start: 08/15/19 08:03 Freq: Status: Active Protocol: Document 10/11/19 11:45 [facility] (Rec: 10/12/19 14:12 [facility] [id number]) Aquatics Treatment Pool Entry/Exit Pool Entry/Exit Method Stairs Assistance Standby Assistance Water Walking Tandem Gait Water Level Chest Level Comments several LOB [place] March Water Level Chest Level Level of Assistance Verbal Cues Comments swinging arms side to side barrell walk Water Level Chest Level Level of Assistance Standby Assistance,Verbal Cues march Water Level Chest Level Level of Assistance Standby Assistance,Verbal Cues Comments arms side sweeping straight leg walk Water Level Chest Level Level of Assistance Standby Assistance start stop Water Level Chest Level Comments changing directions Backwards Water Level Chest Level Level of Assistance Standby Assistance,Verbal Cues Sideways Water Level Chest Level Level of Assistance Standby Assistance Lower Extremity Exercises SLS Water Level Chest Level Comments during start and stop/ directionsl changes squats Body Position Standing Water Level Waist Level Reps/Duration 15x Comments on box in shallowest water 4 Details Knee flexion/extension Body Position Standing Water Level Chest Level Equipment Ankle Weight- 5.0# Reps/Duration x 15 reps Comments braced at wall 3 Details L.E. circumduction Body Position Standing Water Level Chest Level Equipment Ankle Weight- 5.0# Reps/Duration x 15 reps 2 Details Hip AB/AD Body Position Standing Water Level Chest Level Equipment Ankle Weight- 5.0# Reps/Duration x 15 reps 1 Details Hip flex/ext Body Position Standing Water Level Chest Level Reps/Duration x 15 reps Comments pain with ext on RLE Lower Extremity Stretches Quads Body Position Standing Water Level Chest Level Equipment Small Noodle Reps/Duration 2 x45 sec HS Body Position Standing Water Level Chest Level Equipment Small Noodle Reps/Duration 2 x45 sec Spinal Exercises 1 Details U.E. Horiz AB/AD, shoulder flexion Body Position Standing Water Level Chest Level Comments With core stabilization emphasis, bilateral and unilateral Balance step up/down lg box Body Position Standing Water Level Waist Level Reps/Duration 10x forward, 10x side Comments occasional hh on wall [place] Activities [place] Activities Bicycle,Bicycle Backwards, Cross Country,Running,Hip Abduction/Adduction,Sit Kicks Equipment Lg belt Duration 12 PT-OP-T Assessment and Plan Start: 08/15/19 08:03 Freq: Status: Active Protocol: Document 10/11/19 11:45 YESSENIA (Rec: 10/12/19 14:12 [facility] [id number]) Physical Therapy Assessment Rehab Potential Rehabilitation Potential Fair Evaluation Complexity Number of Personal Factors/Comorbidities 3 or More Number of Body Systems Impaired 3 Clinical Presentation at Evaluation Evolving Impairments Impairments Activity Tolerance,Balance, Strength Other Concerns Barriers to Rehabilitation chronicity of condition low activity tolerance, SOB kidney dysfunction Goals Four Impairment activity tolerance Shelter Goal (LTG) Patient to tolerate 45 minute aquatic exercise program without increase in pain or excess fatigue and be independent in aquatic ex program for care home fitness and pain management. Three Impairment Gait: limited to household, very short distance community (<250') Short Term Goal (STG) Patient able to walk 500' with 4WW before requiring a rest break STG Duration 6 wks Compressor Station Engineer Chief Goal (LTG) Patient able to tolerate 10-15 min of standing and walking to allow her to do brief shopping trips before needing to sit down for rest break LTG Duration 12 wks Two Impairment weakness bilateral LE's Short Term Goal (STG) Patient to be independent and compliant with HEP to include use of a video for increased compliance. STG Duration 6 wks Compressor Station Engineer Chief Goal (LTG) Patient to demonstrate improvement in LE strength by 1 grade throughout to improve her functional mobility and safety LTG Duration 12 wks One Impairment balance dysfunction with multiple falls, high fall risk category Short Term Goal (STG) No reported falls STG Duration 6 wks Compressor Station Engineer Chief Goal (LTG) Patient to demonstrate a improvement in her score on Tinettti gait and balance assessment from high fall risk to no greater than moderate fall risk LTG Duration 12 wks Eight Impairment weakness left shoulder Shelter Goal (LTG) Patient left UE strength at least 4+/5 Seven Impairment activity tolerance Shelter Goal (LTG) Patient able to reach overhead and behind her back with minimal to no pain for purposes of ADL's and usual activities Assessment Summary Assessment Patient able to tolerate increased speed and challenge to walking in shallow water today, exhibiting increase in functional strength and balance. Would benefit from further PT. Physical Therapy Plan Frequency and Duration Frequency of Treatment 2x/wk Duration of Treatment 12 wks Plan of Care Start Date 08/05/20 Plan of Care End Date 11/13/19 Therapeutic Interventions Therapeutic Interventions Aquatic Therapy,Balance Training,Gait Training,Home Exercise Program,Manual Therapy,Neuromuscular Re- education,Patient/Caregiver Education,Self-Care/Home Management,Therapeutic Activities,Therapeutic Exercises Next Visit Focus/Plan Next Note Type Treatment Note Next Visit Plan Continue PT to improvebalance, functional mobility and safety.
--- NOTE | 2019-10-17 17:09 | PT.OTN ---
Current Diagnoses Other abnormalities of gait and mobility (10/16/19) Physical Therapy Treatment Note PT-OP-A Visit Information Start: 08/15/19 08:03 Freq: Status: Active Protocol: Document 10/16/19 11:45 [facility] (Rec: 10/17/19 17:08 [facility] [id number]) Out-Patient Physical Therapy Visit Information Visit Information Visit Type Aquatic Treatment Note Visit Start Time 11:52 Visit Stop Time 12:35 Total Visit Minutes 43 Visit Number PT-OP-B Current Condition Start: 08/15/19 08:03 Freq: Status: Active Protocol: Document 08/15/19 08:11 SAK (Rec: 08/15/19 08:50 SAK [id number]) Current Condition History of Current Condition Onset Date 10+ years Current Complaints poor balance with multiple falls History of Current Condition Reports long history of gradual decrease in strength and balance with multiple falls, legs give out, UEs not able to hold self up. Poor activity level with limited ability to stand or walk due to weakness and LBP. Has had a hard time getting out of house. Removal of parathyroid gland earlier this year has resulted in increase in weight . 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 Wears orthotics majority of the time. Uses cane and 4WW. Going to be measured for custom compression stockings at [facility] pharmacy. Uses heat for LBP, arthritis Tylenol. Prior Treatments and Tests H/O foot surgery History of aortic valve replacement History of hip replacement History of knee replacement History of knee replacement Status post hysterectomy COPD (chronic obstructive pulmonary disease) GERD (gastroesophageal reflux disease) Hyperlipidemia Hypertension Morbid obesity Neuropathy Treatment Goals Patient/Caregiver Goals Hoping to gain more strength, be able to tolerate standing and walking, better balance. 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 PT-OP-H Neuro Start: 08/15/19 08:03 Freq: Status: Active Protocol: Document 08/15/19 08:11 SAK (Rec: 08/15/19 08:50 SAK [id number]) Sensation Evaluation Gross Sensation Gross Sensation Left LE Impaired,Right LE Impaired Sensation Description Paresthesia,Numbness PT-OP-K Range of Motion Start: 08/15/19 08:03 Freq: Status: Active Protocol: Document 08/15/19 08:11 SAK (Rec: 08/15/19 08:50 [facility] [id number]) Lumbar Spine Range of Motion Lumbar Spine Active ROM Limitations Pain Hip Goniometric Range of Motion Hip gabby Hip ROM WFL Yes Knee Goniometric Range of Motion Knee ROM Limitations Knee ROM Limitations Pain Comments genu valgus right Ankle and Foot Goniometric Range of Motion Ankle and Foot gabby Dorsiflexion with Knee Flexed 0 PT-OP-M Strength Start: 08/15/19 08:03 Freq: Status: Active Protocol: Document 08/15/19 08:11 SAK (Rec: 08/15/19 08:50 [facility] [id number]) Trunk Strength Trunk Manual Muscle Testing Flexion 2- Poor- Extension 2- Poor- Hip Strength Hip Manual Muscle Testing gabby Flexion (L2) 3+ Fair+ Extension (S1) 2 Poor Abduction 2 Poor Adduction 2 Poor External Rotation 2- Poor- Internal Rotation 2- Poor- Knee Strength Knee Manual Muscle Testing gabby Flexion (S2) 4- Good- Extension (L3) 4- Good- Ankle/Foot Strength Ankle and Foot Manual Muscle Testing gabby Dorsiflexion (L4) 3+ Fair+ Plantarflexion (S1) 4- Good- PT-OP-Q Treatments Start: 08/15/19 08:03 Freq: Status: Active Protocol: Document 08/15/19 08:11 [facility] (Rec: 08/15/19 16:30 [facility] [id number]) Self-Care/Home Management Treatment Education Patient Education Home Exercise Program Other Education explore videos for seated exercise program PT-OP-S Aquatic Treatment Start: 08/15/19 08:03 Freq: Status: Active Protocol: Document 10/16/19 11:45 SAK (Rec: 10/17/19 17:08 [facility] [id number]) Aquatics Treatment Pool Entry/Exit Pool Entry/Exit Method Stairs Assistance Standby Assistance Water Walking Tandem Gait Water Level Chest Level Comments several LOB [place] Water Level Chest Level Level of Assistance Verbal Cues barrell walk Water Level Chest Level Level of Assistance Standby Assistance,Verbal Cues march Water Level Chest Level Level of Assistance Standby Assistance,Verbal Cues straight leg walk Water Level Chest Level Level of Assistance Standby Assistance start stop Water Level Chest Level Comments changing directions Backwards Water Level Chest Level Level of Assistance Standby Assistance,Verbal Cues Sideways Water Level Chest Level Level of Assistance Standby Assistance Forwards Water Level Chest Level Level of Assistance Standby Assistance Lower Extremity Exercises SLS Water Level Chest Level Comments during start and stop/ directionsl changes squats Body Position Standing Water Level Waist Level Reps/Duration 15x Comments on box in shallowest water 4 Details Knee flexion/extension Body Position Standing Water Level Chest Level Reps/Duration x 15 reps Comments braced at wall 3 Details L.E. circumduction Body Position Standing Water Level Chest Level Reps/Duration x 15 reps 2 Details Hip AB/AD Body Position Standing Water Level Chest Level Reps/Duration x 15 reps 1 Details Hip flex/ext Body Position Standing Water Level Chest Level Reps/Duration x 15 reps Comments pain with ext on RLE Lower Extremity Stretches Hip flexor Body Position Standing Water Level Chest Level Reps/Duration 2 x45 sec B Quads Body Position Standing Water Level Chest Level Equipment Small Noodle Reps/Duration 2 x45 sec HS Body Position Standing Water Level Chest Level Equipment Small Noodle Reps/Duration 2 x45 sec Upper Extremity Exercises scapular retracton Body Position Standing Water Level Neck Level Reps/Duration 10 Comments manual cueing Spinal Exercises 1 Details U.E. Horiz AB/AD, shoulder flexion Body Position Standing Water Level Chest Level Comments With core stabilization emphasis, bilateral and unilateral Balance tandem gait Body Position Standing Water Level Chest Level Reps/Duration 2 min Comments no arms noodle sit Reps/Duration 3 min Comments mod assist SLS Reps/Duration 3x each LE step up/down lg box Body Position Standing Water Level Waist Level Reps/Duration 10x forward, 10x side Comments occasional hh on wall [place] Activities [place] Activities Bicycle,Bicycle Backwards, Cross [place],Running,Hip Abduction/Adduction,Sit Kicks Equipment Lg belt Duration 12 PT-OP-T Assessment and Plan Start: 08/15/19 08:03 Freq: Status: Active Protocol: Document 10/16/19 11:45 [facility] (Rec: 10/17/19 17:08 [facility] [id number]) Physical Therapy Assessment Rehab Potential Rehabilitation Potential Fair Evaluation Complexity Number of Personal Factors/Comorbidities 3 or More Number of Body Systems Impaired 3 Clinical Presentation at Evaluation Evolving Impairments Impairments Activity Tolerance,Balance, Strength Other Concerns Barriers to Rehabilitation chronicity of condition low activity tolerance, SOB kidney dysfunction Goals Four Impairment activity tolerance Front End Web Designer Goal (LTG) Patient to tolerate 45 minute aquatic exercise program without increase in pain or excess fatigue and be independent in aquatic ex program for senior care fitness and pain management. Three Impairment Gait: limited to household, very short distance community (<250') Short Term Goal (STG) Patient able to walk 500' with 4WW before requiring a rest break STG Duration 6 wks Fpc Goal (LTG) Patient able to tolerate 10-15 min of standing and walking to allow her to do brief shopping trips before needing to sit down for rest break LTG Duration 12 wks Two Impairment weakness bilateral LE's Short Term Goal (STG) Patient to be independent and compliant with HEP to include use of a video for increased compliance. STG Duration 6 wks Fpc Goal (LTG) Patient to demonstrate improvement in LE strength by 1 grade throughout to improve her functional mobility and safety LTG Duration 12 wks One Impairment balance dysfunction with multiple falls, high fall risk category Short Term Goal (STG) No reported falls STG Duration 6 wks Fpc Goal (LTG) Patient to demonstrate a improvement in her score on Tinettti gait and balance assessment from high fall risk to no greater than moderate fall risk LTG Duration 12 wks Eight Impairment weakness left shoulder Fpc Goal (LTG) Patient left UE strength at least 4+/5 Seven Impairment activity tolerance Fpc Goal (LTG) Patient able to reach overhead and behind her back with minimal to no pain for purposes of ADL's and usual activities Physical Therapy Plan Frequency and Duration Frequency of Treatment 2x/wk Duration of Treatment 12 wks Plan of Care Start Date 08/05/20 Plan of Care End Date 11/13/19 Therapeutic Interventions Therapeutic Interventions Aquatic Therapy,Balance Training,Gait Training,Home Exercise Program,Manual Therapy,Neuromuscular Re- education,Patient/Caregiver Education,Self-Care/Home Management,Therapeutic Activities,Therapeutic Exercises Next Visit Focus/Plan Next Note Type Treatment Note Next Visit Plan Continue PT to improve balance , functional mobility and safety. Encourage HEP
--- NOTE | 2019-10-18 12:30 | PT.OTN ---
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 Poor activity level with limited ability to stand or walk due to weakness and LBP. Has had a hard time getting out of house. Removal of parathyroid gland earlier this year has resulted in increase in weight . 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 Wears orthotics majority of the time. Uses cane and 4WW. Going to be measured for custom compression stockings at [facility] pharmacy. Uses heat for LBP, arthritis Tylenol. Prior Treatments and Tests H/O foot surgery History of aortic valve replacement History of hip replacement History of knee replacement History of knee replacement Status post hysterectomy COPD (chronic obstructive pulmonary disease) GERD (gastroesophageal reflux disease) Hyperlipidemia Hypertension Morbid obesity Neuropathy Treatment Goals Patient/Caregiver Goals Hoping to gain more strength, be able to tolerate standing and walking, better balance. 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 PT-OP-H Neuro Start: 08/15/19 08:03 Freq: Status: Active Protocol: Document 08/15/19 08:11 SAK (Rec: 08/15/19 08:50 SAK [id number]) Sensation Evaluation Gross Sensation Gross Sensation Left LE Impaired,Right LE Impaired Sensation Description Paresthesia,Numbness PT-OP-K Range of Motion Start: 08/15/19 08:03 Freq: Status: Active Protocol: Document 08/15/19 08:11 SAK (Rec: 08/15/19 08:50 SAK [id number]) Lumbar Spine Range of Motion Lumbar Spine Active ROM Limitations Pain Hip Goniometric Range of Motion Hip gabby Hip ROM WFL Yes Knee Goniometric Range of Motion Knee ROM Limitations Knee ROM Limitations Pain Comments genu valgus right Ankle and Foot Goniometric Range of Motion Ankle and Foot gabby Dorsiflexion with Knee Flexed 0 PT-OP-M Strength Start: 08/15/19 08:03 Freq: Status: Active Protocol: Document 08/15/19 08:11 SAK (Rec: 08/15/19 08:50 SAK [id number]) Trunk Strength Trunk Manual Muscle Testing Flexion 2- Poor- Extension 2- Poor- Hip Strength Hip Manual Muscle Testing gabby Flexion (L2) 3+ Fair+ Extension (S1) 2 Poor Abduction 2 Poor Adduction 2 Poor External Rotation 2- Poor- Internal Rotation 2- Poor- Knee Strength Knee Manual Muscle Testing gabby Flexion (S2) 4- Good- Extension (L3) 4- Good- Ankle/Foot Strength Ankle and Foot Manual Muscle Testing gabby Dorsiflexion (L4) 3+ Fair+ Plantarflexion (S1) 4- Good- PT-OP-Q Treatments Start: 08/15/19 08:03 Freq: Status: Active Protocol: Document 08/15/19 08:11 SAK (Rec: 08/15/19 16:30 SAK [id number]) Self-Care/Home Management Treatment Education Patient Education Home Exercise Program Other Education explore videos for seated exercise program PT-OP-S Aquatic Treatment Start: 08/15/19 08:03 Freq: Status: Active Protocol: Document 10/25/19 10:15 KAITLIN (Rec: 10/25/19 13:20 [id number]) Aquatics Treatment Pool Entry/Exit Pool Entry/Exit Method Stairs Assistance Standby Assistance Water Walking shallow water jogging Water Level Chest Level Level of Assistance Standby Assistance Comments 2 laps Lunge Walk Water Level Chest Level Level of Assistance Standby Assistance [place] October Water Level Chest Level Level of Assistance Verbal Cues barrell walk Water Level Chest Level Level of Assistance Standby Assistance,Verbal Cues march Water Level Chest Level Level of Assistance Standby Assistance,Verbal Cues Backwards Water Level Chest Level Level of Assistance Standby Assistance,Verbal Cues Sideways Water Level Chest Level Level of Assistance Standby Assistance [place] Water Level Chest Level Level of Assistance Standby Assistance Lower Extremity Stretches Quads Body Position Standing Water Level Chest Level Equipment Small Noodle Reps/Duration 2 x45 sec HS Body Position Standing Water Level Chest Level Equipment Small Noodle Reps/Duration 2 x45 sec Spinal Exercises Wonderboard Body Position Sitting Equipment Ankle Weight- 2.5# Reps/Duration 8 min Comments stationary and forward/ backward movement 1 Details U.E. Horiz AB/AD, shoulder flexion Body Position Standing Water Level Chest Level Comments With core stabilization emphasis, bilateral and unilateral Balance step up/down lg box Body Position Standing Water Level Waist Level Reps/Duration all directions, both LEs leading Comments occasional hh on wall Minter Activities Minter Activities Bicycle,Bicycle Backwards, Cross Country,Running,Hip Abduction/Adduction,Sit Kicks Equipment Lg belt Duration 14 PT-OP-T Assessment and Plan Start: 08/15/19 08:03 Freq: Status: Active Protocol: Document 10/25/19 10:15 KAITLIN (Rec: 10/25/19 13:20 [id number]) Physical Therapy Assessment Rehab Potential Rehabilitation Potential Fair Evaluation Complexity Number of Personal Factors/Comorbidities 3 or More Number of Body Systems Impaired 3 Clinical Presentation at Evaluation Evolving Impairments Impairments Activity Tolerance,Balance, Strength Other Concerns Barriers to Rehabilitation chronicity of condition low activity tolerance, SOB kidney dysfunction Goals Four Impairment activity tolerance Alf Goal (LTG) Patient to tolerate 45 minute aquatic exercise program without increase in pain or excess fatigue and be independent in aquatic ex program for shelter fitness and pain management. Three Impairment Gait: limited to household, very short distance community (<250') Short Term Goal (STG) Patient able to walk 500' with 4WW before requiring a rest break STG Duration 6 wks [employer] Goal (LTG) Patient able to tolerate 10-15 min of standing and walking to allow her to do brief shopping trips before needing to sit down for rest break LTG Duration 12 wks Two Impairment weakness bilateral LE's Short Term Goal (STG) Patient to be independent and compliant with HEP to include use of a video for increased compliance. STG Duration 6 wks Alf Goal (LTG) Patient to demonstrate improvement in LE strength by 1 grade throughout to improve her functional mobility and safety LTG Duration 12 wks One Impairment balance dysfunction with multiple falls, high fall risk category Short Term Goal (STG) No reported falls STG Duration 6 wks Alf Goal (LTG) Patient to demonstrate a improvement in her score on Tinettti gait and balance assessment from high fall risk to no greater than moderate fall risk LTG Duration 12 wks Eight Impairment weakness left shoulder Alf Goal (LTG) Patient left UE strength at least 4+/5 Seven Impairment activity tolerance Alf Goal (LTG) Patient able to reach overhead and behind her back with minimal to no pain for purposes of ADL's and usual activities Assessment Summary Assessment Pt did well on balance board with occasional HH on wall initially then able to maintain balance in forward and backward propulsion. She exhibits less SOB during deep water exercises. Further PT would be beneficial Physical Therapy Plan Frequency and Duration Frequency of Treatment 2x/wk Duration of Treatment 12 wks Plan of Care Start Date 08/05/20 Plan of Care End Date 11/13/19 Therapeutic Interventions Therapeutic Interventions Aquatic Therapy,Balance Training,Gait Training,Home Exercise Program,Manual Therapy,Neuromuscular Re- education,Patient/Caregiver Education,Self-Care/Home Management,Therapeutic Activities,Therapeutic Exercises Next Visit Focus/Plan Next Note Type Treatment Note Next Visit Plan Continue PT to improve balance , functional mobility and safety. Encourage HEP
--- NOTE | 2019-10-25 13:20 | PT.OTN ---
Current Diagnoses Other abnormalities of gait and mobility (10/18/19) Physical Therapy Treatment Note PT-OP-A Visit Information Start: 08/15/19 08:03 Freq: Status: Active Protocol: Document 10/25/19 10:15 LJ (Rec: 10/25/19 13:20 LJ [id number]) Out-Patient Physical Therapy Visit Information Visit Information Visit Type Aquatic Treatment Note Visit Start Time 10:15 Visit Stop Time 11:00 Total Visit Minutes 45 Visit Number Number of LABORATORY CHEMICAL ASSISTANT Visits 1 PT-OP-B Current Condition Start: 08/15/19 08:03 Freq: Status: Active Protocol: Document 08/15/19 08:11 SAK (Rec: 08/15/19 08:50 SAK [id number]) Current Condition History of Current Condition Onset Date 10+ years Current Complaints poor balance with multiple falls History of Current Condition Reports long history of gradual decrease in strength and balance with multiple falls, legs give out, UEs not able to hold self up. Poor activity level with limited ability to stand or walk due to weakness and LBP. Has had a hard time getting out of house. Removal of parathyroid gland earlier this year has resulted in increase in weight . 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 Wears orthotics majority of the time. Uses cane and 4WW. Going to be measured for custom compression stockings at [facility] pharmacy. Uses heat for LBP, arthritis Tylenol. Prior Treatments and Tests H/O foot surgery History of aortic valve replacement History of hip replacement History of knee replacement History of knee replacement Status post hysterectomy COPD (chronic obstructive pulmonary disease) GERD (gastroesophageal reflux disease) Hyperlipidemia Hypertension Morbid obesity Neuropathy Treatment Goals Patient/Caregiver Goals Hoping to gain more strength, be able to tolerate standing and walking, better balance. 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 PT-OP-H Neuro Start: 08/15/19 08:03 Freq: Status: Active Protocol: Document 08/15/19 08:11 SAK (Rec: 08/15/19 08:50 SAK [id number]) Sensation Evaluation Gross Sensation Gross Sensation Left LE Impaired,Right LE Impaired Sensation Description Paresthesia,Numbness PT-OP-K Range of Motion Start: 08/15/19 08:03 Freq: Status: Active Protocol: Document 08/15/19 08:11 SAK (Rec: 08/15/19 08:50 SAK [id number]) Lumbar Spine Range of Motion Lumbar Spine Active ROM Limitations Pain Hip Goniometric Range of Motion Hip gabby Hip ROM WFL Yes Knee Goniometric Range of Motion Knee ROM Limitations Knee ROM Limitations Pain Comments genu valgus right Ankle and Foot Goniometric Range of Motion Ankle and Foot gabby Dorsiflexion with Knee Flexed 0 PT-OP-M Strength Start: 08/15/19 08:03 Freq: Status: Active Protocol: Document 08/15/19 08:11 SAK (Rec: 08/15/19 08:50 SAK [id number]) Trunk Strength Trunk Manual Muscle Testing Flexion 2- Poor- Extension 2- Poor- Hip Strength Hip Manual Muscle Testing gabby Flexion (L2) 3+ Fair+ Extension (S1) 2 Poor Abduction 2 Poor Adduction 2 Poor External Rotation 2- Poor- Internal Rotation 2- Poor- Knee Strength Knee Manual Muscle Testing gabby Flexion (S2) 4- Good- Extension (L3) 4- Good- Ankle/Foot Strength Ankle and Foot Manual Muscle Testing gabby Dorsiflexion (L4) 3+ Fair+ Plantarflexion (S1) 4- Good- PT-OP-Q Treatments Start: 08/15/19 08:03 Freq: Status: Active Protocol: Document 08/15/19 08:11 SAK (Rec: 08/15/19 16:30 SAK [id number]) Self-Care/Home Management Treatment Education Patient Education Home Exercise Program Other Education explore videos for seated exercise program PT-OP-S Aquatic Treatment Start: 08/15/19 08:03 Freq: Status: Active Protocol: Document 10/25/19 10:15 KAITLIN (Rec: 10/25/19 13:20 [id number]) Aquatics Treatment Pool Entry/Exit Pool Entry/Exit Method Stairs Assistance Standby Assistance Water Walking shallow water jogging Water Level Chest Level Level of Assistance Standby Assistance Comments 2 laps Lunge Walk Water Level Chest Level Level of Assistance Standby Assistance [place] October Water Level Chest Level Level of Assistance Verbal Cues barrell walk Water Level Chest Level Level of Assistance Standby Assistance,Verbal Cues march Water Level Chest Level Level of Assistance Standby Assistance,Verbal Cues Backwards Water Level Chest Level Level of Assistance Standby Assistance,Verbal Cues Sideways Water Level Chest Level Level of Assistance Standby Assistance [place] Water Level Chest Level Level of Assistance Standby Assistance Lower Extremity Stretches Quads Body Position Standing Water Level Chest Level Equipment Small Noodle Reps/Duration 2 x45 sec HS Body Position Standing Water Level Chest Level Equipment Small Noodle Reps/Duration 2 x45 sec Spinal Exercises Wonderboard Body Position Sitting Equipment Ankle Weight- 2.5# Reps/Duration 8 min Comments stationary and forward/ backward movement 1 Details U.E. Horiz AB/AD, shoulder flexion Body Position Standing Water Level Chest Level Comments With core stabilization emphasis, bilateral and unilateral Balance step up/down lg box Body Position Standing Water Level Waist Level Reps/Duration all directions, both LEs leading Comments occasional hh on wall [place] Activities [place] Activities Bicycle,Bicycle Backwards, Cross Country,Running,Hip Abduction/Adduction,Sit Kicks Equipment Lg belt Duration 14 PT-OP-T Assessment and Plan Start: 08/15/19 08:03 Freq: Status: Active Protocol: Document 10/25/19 10:15 KAITLIN (Rec: 10/25/19 13:20 [id number]) Physical Therapy Assessment Rehab Potential Rehabilitation Potential Fair Evaluation Complexity Number of Personal Factors/Comorbidities 3 or More Number of Body Systems Impaired 3 Clinical Presentation at Evaluation Evolving Impairments Impairments Activity Tolerance,Balance, Strength Other Concerns Barriers to Rehabilitation chronicity of condition low activity tolerance, SOB kidney dysfunction Goals Four Impairment activity tolerance Mcfp Goal (LTG) Patient to tolerate 45 minute aquatic exercise program without increase in pain or excess fatigue and be independent in aquatic ex program for residential fitness and pain management. Three Impairment Gait: limited to household, very short distance community (<250') Short Term Goal (STG) Patient able to walk 500' with 4WW before requiring a rest break STG Duration 6 wks Host Goal (LTG) Patient able to tolerate 10-15 min of standing and walking to allow her to do brief shopping trips before needing to sit down for rest break LTG Duration 12 wks Two Impairment weakness bilateral LE's Short Term Goal (STG) Patient to be independent and compliant with HEP to include use of a video for increased compliance. STG Duration 6 wks Mcfp Goal (LTG) Patient to demonstrate improvement in LE strength by 1 grade throughout to improve her functional mobility and safety LTG Duration 12 wks One Impairment balance dysfunction with multiple falls, high fall risk category Short Term Goal (STG) No reported falls STG Duration 6 wks Mcfp Goal (LTG) Patient to demonstrate a improvement in her score on Tinettti gait and balance assessment from high fall risk to no greater than moderate fall risk LTG Duration 12 wks Eight Impairment weakness left shoulder Mcfp Goal (LTG) Patient left UE strength at least 4+/5 Seven Impairment activity tolerance Mcfp Goal (LTG) Patient able to reach overhead and behind her back with minimal to no pain for purposes of ADL's and usual activities Assessment Summary Assessment Pt did well on balance board with occasional HH on wall initially then able to maintain balance in forward and backward propulsion. She exhibits less SOB during deep water exercises. Further PT would be beneficial Physical Therapy Plan Frequency and Duration Frequency of Treatment 2x/wk Duration of Treatment 12 wks Plan of Care Start Date 08/05/20 Plan of Care End Date 11/13/19 Therapeutic Interventions Therapeutic Interventions Aquatic Therapy,Balance Training,Gait Training,Home Exercise Program,Manual Therapy,Neuromuscular Re- education,Patient/Caregiver Education,Self-Care/Home Management,Therapeutic Activities,Therapeutic Exercises Next Visit Focus/Plan Next Note Type Treatment Note Next Visit Plan Continue PT to improve balance ,functional mobility and safety. Encourage HEP
[2020-01-23 17:33] VITALS: BP 140/100
--- NOTE | 2020-01-23 17:47 | PT.OTRE ---
Current Diagnoses Other abnormalities of gait and mobility (01/23/20) Past Medical History (Last Reviewed 05/10/18 @ 15:21 by Kelby Nascimento DPM) COPD (chronic obstructive pulmonary disease) (Acute) GERD (gastroesophageal reflux disease) (Acute) Hyperlipidemia (Acute) Hypertension (Acute) Morbid obesity (Acute) Neuropathy (Acute) Surgical History (Last Reviewed 05/10/18 @ 15:21 by Kelby Nascimento DPM) H/O foot surgery (Acute) History of aortic valve replacement History of hip replacement History of knee replacement History of knee replacement Status post hysterectomy Visit Care Team Role Provider Type Rosy Lowery PA-C Attending Provider Physician Family Provider Primary Care Provider Specialty: Internal Medicine Address: [address] [place] [address], [facility] Email: [email or web address] Re-Evaluation PT-OP-A Visit Information Start: 08/15/19 08:03 Freq: Status: Active Protocol: Document 01/23/20 17:33 SAK (Rec: 01/23/20 17:47 SAK [id number]) Out-Patient Physical Therapy Visit Information Visit Information Visit Type Re-Evaluation Visit Start Time 16:00 Visit Stop Time 16:45 Total Visit Minutes 45 Visit Number Number of ULTRASOUND SUPERVISOR Visits 0 PT-OP-B Current Condition Start: 08/15/19 08:03 Freq: Status: Active Protocol: Document 08/15/19 08:11 SAK (Rec: 08/15/19 08:50 SAK [id number]) Current Condition History of Current Condition Onset Date 10+ years Current Complaints poor balance with multiple falls History of Current Condition Reports long history of gradual decrease in strength and balance with multiple falls, legs give out, UEs not able to hold self up. Poor activity level with limited ability to stand or walk due to weakness and LBP. Has had a hard time getting out of house. Removal of parathyroid gland earlier this year has resulted in increase in weight . 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 Wears orthotics majority of the time. Uses cane and 4WW. Going to be measured for custom compression stockings at [facility] pharmacy. Uses heat for LBP, arthritis Tylenol. Prior Treatments and Tests H/O foot surgery History of aortic valve replacement History of hip replacement History of knee replacement History of knee replacement Status post hysterectomy COPD (chronic obstructive pulmonary disease) GERD (gastroesophageal reflux disease) Hyperlipidemia Hypertension Morbid obesity Neuropathy Treatment Goals Patient/Caregiver Goals Hoping to gain more strength, be able to tolerate standing and walking, better balance. 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 Patient Reported Progress Worse PT-OP-H Neuro Start: 08/15/19 08:03 Freq: Status: Active Protocol: Document 08/15/19 08:11 [facility] (Rec: 08/15/19 08:50 [facility] [id number]) Sensation Evaluation Gross Sensation Gross Sensation Left LE Impaired,Right LE Impaired Sensation Description Paresthesia,Numbness PT-OP-K Range of Motion Start: 08/15/19 08:03 Freq: Status: Active Protocol: Document 08/15/19 08:11 [facility] (Rec: 08/15/19 08:50 [facility] [id number]) Lumbar Spine Range of Motion Lumbar Spine Active ROM Limitations Pain Hip Goniometric Range of Motion Hip Measured in Degrees gabby Hip ROM WFL Yes Knee Goniometric Range of Motion Knee ROM Limitations Knee ROM Limitations Pain Comments genu valgus right Ankle and Foot Goniometric Range of Motion Ankle and Foot Measured in Degrees gabby Dorsiflexion with Knee Flexed 0 PT-OP-M Strength Start: 08/15/19 08:03 Freq: Status: Active Protocol: Document 08/15/19 08:11 [facility] (Rec: 08/15/19 08:50 [facility] [id number]) Trunk Strength Trunk Manual Muscle Testing Flexion 2- Poor- Extension 2- Poor- Hip Strength Hip Manual Muscle Testing gabby Flexion (L2) 3+ Fair+ Extension (S1) 2 Poor Abduction 2 Poor Adduction 2 Poor External Rotation 2- Poor- Internal Rotation 2- Poor- Knee Strength Knee Manual Muscle Testing gabby Flexion (S2) 4- Good- Extension (L3) 4- Good- Ankle/Foot Strength Ankle and Foot Manual Muscle Testing gabby Dorsiflexion (L4) 3+ Fair+ Plantarflexion (S1) 4- Good- PT-OP-Q Treatments Start: 08/15/19 08:03 Freq: Status: Active Protocol: Document 01/23/20 17:47 [facility] (Rec: 01/23/20 17:47 [facility] [id number]) Cardio Equipment Recumbent Stepper (Sci-Fit) Duration (Minutes) 10 Resistance 1 Seat Position 10 PT-OP-T Assessment and Plan Start: 08/15/19 08:03 Freq: Status: Active Protocol: Document 01/23/20 17:33 [facility] (Rec: 01/23/20 17:47 [facility] [id number]) Physical Therapy Assessment Goals Four Impairment activity tolerance Veterinary Manager Goal (LTG) Patient to tolerate 45 minute aquatic exercise program without increase in pain or excess fatigue and be independent in aquatic ex program for 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 01/23/20: aquatic exercise on hold due to Covid19, pool still closed, no aquatic therapy LTG Duration 04/22/20 Three Impairment Gait: limited to household, very short distance community (<250') Short Term Goal (STG) Patient able to walk 500' with 4WW before requiring a rest break 01/23/20: required rest break today after 100' with hurry- cane (forgot walker) STG Duration 03/16/20 Veterinary Manager Goal (LTG) Patient able to tolerate 10-15 min of standing and walking to allow her to do brief shopping trips before needing to sit down for rest break LTG Duration 04/22/20 Two Impairment weakness bilateral LE's Short Term Goal (STG) Patient to be independent and compliant with HEP to include use of a video for increased compliance. 01/23/20: has not yet been able due to broken VCR and computer problems STG Duration 03/16/20 Alf Goal (LTG) Patient to demonstrate improvement in LE strength by 1 grade throughout to improve her functional mobility and safety 01/23/20: per MMT today, patient weaker in hips and core as well as ankle dorsiflexion LTG Duration 04/22/20 One Impairment balance dysfunction with multiple falls, high fall risk category Short Term Goal (STG) No reported falls 01/23/20: no falls since last seen STG Duration goal met Alf Goal (LTG) Patient to demonstrate a improvement in her score on Tinettti gait and balance assessment from high fall risk to no greater than moderate fall risk 01/23/20: patient continues to be in high risk category LTG Duration 04/22/20 Eight Impairment weakness left shoulder Veterinary Manager Goal (LTG) Patient left UE strength at least 4+/5 01/23/20: no change in patient UE strength LTG Duration 04/22/20 Seven Impairment activity tolerance Veterinary Manager Goal (LTG) Patient able to reach overhead and behind her back with minimal to no pain for purposes of ADL's and usual activities LTG Duration 04/22/20 Assessment Summary Assessment Patient strength, activity tolerance, and balance have worsened since last seen in PT 2 months ago prior to PT closure due to Covid19. Has difficulty with compliance to HEP and activity has been severely limited due to self- isolating at home due to high risk category. She was issued new HEP handout for LE's today and committed to compliance with these as well as exercise video (having son fix her technology) or trial of youtube exercise video as recommended today. Due to patient SOB with very limited activity feel she may benefit from respiratory rehab as well ; will request order. Physical Therapy Plan Frequency and Duration Frequency of Treatment 2x/wk Duration of Treatment 12 wks Plan of Care Start Date 01/23/20 Plan of Care End Date 04/22/20 Therapeutic Interventions Therapeutic Interventions Aquatic Therapy,Balance Training,Gait Training,Home Exercise Program,Manual Therapy,Neuromuscular Re- education,Patient/Caregiver Education,Self-Care/Home Management,Therapeutic Activities,Therapeutic Exercises Next Visit Focus/Plan Next Note Type Treatment Note Next Visit Plan Continue PT to improve balance , strength, functional mobility and safety. Issue written HEP for shoulder. Encourage compoliance with all HEP and recommendations. Request respiratory rehab.
--- NOTE | 2020-01-23 17:48 | PT.OPPOC ---
Physical, Occupational & Speech Therapy At [facility] Current Diagnoses Other abnormalities of gait and mobility (01/23/20) Visit Care Team Role Provider Type Rosy Lowery PA-C Attending Provider Physician Family Provider Primary Care Provider Specialty: Internal Medicine Address: [address] [place] [address], [id number] Email: [email or web address] Plan Of Care PT-OP-T Assessment and Plan Start: 08/15/19 08:03 Freq: Status: Active Protocol: Document 01/23/20 17:33 SAK (Rec: 01/23/20 17:47 SAK [id number]) Physical Therapy Assessment Goals Four Impairment activity tolerance Drafter Civil Goal (LTG) Patient to tolerate 45 minute aquatic exercise program without increase in pain or excess fatigue and be independent in aquatic ex program for intermodal customer service fitness and pain management. 01/23/20: aquatic exercise on hold due to Covid19, pool still closed, no aquatic therapy LTG Duration 04/22/20 Three Impairment Gait: limited to household, very short distance community (<250') Short Term Goal (STG) Patient able to walk 500' with 4WW before requiring a rest break 01/23/20: required rest break today after 100' with hurry- cane (forgot walker) STG Duration 03/16/20 Drafter Civil Goal (LTG) Patient able to tolerate 10-15 min of standing and walking to allow her to do brief shopping trips before needing to sit down for rest break LTG Duration 04/22/20 Two Impairment weakness bilateral LE's Short Term Goal (STG) Patient to be independent and compliant with HEP to include use of a video for increased compliance. 01/23/20: has not yet been able due to broken VCR and computer problems STG Duration 03/16/20 Jail Goal (LTG) Patient to demonstrate improvement in LE strength by 1 grade throughout to improve her functional mobility and safety 01/23/20: per MMT today, patient weaker in hips and core as well as ankle dorsiflexion LTG Duration 04/22/20 One Impairment balance dysfunction with multiple falls, high fall risk category Short Term Goal (STG) No reported falls 01/23/20: no falls since last seen STG Duration goal met Jail Goal (LTG) Patient to demonstrate a improvement in her score on Tinettti gait and balance assessment from high fall risk to no greater than moderate fall risk 01/23/20: patient continues to be in high risk category LTG Duration 04/22/20 Eight Impairment weakness left shoulder Drafter Civil Goal (LTG) Patient left UE strength at least 4+/5 01/23/20: no change in patient UE strength LTG Duration 04/22/20 Seven Impairment activity tolerance Drafter Civil Goal (LTG) Patient able to reach overhead and behind her back with minimal to no pain for purposes of ADL's and usual activities LTG Duration 04/22/20 Assessment Summary Assessment Patient strength, activity tolerance, and balance have worsened since last seen in PT 2 months ago prior to PT closure due to Covid19. Has difficulty with compliance to HEP and activity has been severely limited due to self- isolating at home due to high risk category. She was issued new HEP handout for LE's today and committed to compliance with these as well as exercise video (having son fix her technology) or trial of [employer] exercise video as recommended today. Due to patient SOB with very limited activity feel she may benefit from respiratory rehab as well ; will request order. Physical Therapy Plan Frequency and Duration Frequency of Treatment 2x/wk Duration of Treatment 12 wks Plan of Care Start Date 01/23/20 Plan of Care End Date 04/22/20 Therapeutic Interventions Therapeutic Interventions Aquatic Therapy,Balance Training,Gait Training,Home Exercise Program,Manual Therapy,Neuromuscular Re- education,Patient/Caregiver Education,Self-Care/Home Management,Therapeutic Activities,Therapeutic Exercises Next Visit Focus/Plan Next Note Type Treatment Note Next Visit Plan Continue PT to improve balance , strength, functional mobility and safety. Issue written HEP for shoulder. Encourage compoliance with all HEP and recommendations. Request respiratory rehab. Plan of Care Dates Plan of Care Start Date 01/23/20 Plan of Care End Date 04/22/20 Electronically Signed by: Barbra Galvan, PT 01/23/20 1127 Please Sign and Return: I have reviewed this Plan of Care and certify that the skilled therapy services above are required to meet the patient?s needs. Physician Signature Date Printed Name and Credentials Clinical Instructor Signature Printed Name and Credentials
--- NOTE | 2020-01-30 10:49 | PT.OTN ---
Current Diagnoses Other abnormalities of gait and mobility (01/30/20) Physical Therapy Treatment Note PT-OP-A Visit Information Start: 08/15/19 08:03 Freq: Status: Active Protocol: Document 01/30/20 09:56 SAK (Rec: 01/30/20 10:12 SAK [id number]) Out-Patient Physical Therapy Visit Information Visit Information Visit Type Treatment Note Visit Start Time 09:45 Visit Stop Time 10:40 Total Visit Minutes 55 Visit Number Number of MANAGER SAFE Visits 0 PT-OP-B Current Condition Start: 08/15/19 08:03 Freq: Status: Active Protocol: Document 08/15/19 08:11 SAK (Rec: 08/15/19 08:50 SAK [id number]) Current Condition History of Current Condition Onset Date 10+ years Current Complaints poor balance with multiple falls History of Current Condition Reports long history of gradual decrease in strength and balance with multiple falls, legs give out, UEs not able to hold self up. Poor activity level with limited ability to stand or walk due to weakness and LBP. Has had a hard time getting out of house. Removal of parathyroid gland earlier this year has resulted in increase in weight . 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 Wears orthotics majority of the time. Uses cane and 4WW. Going to be measured for custom compression stockings at [facility] pharmacy. Uses heat for LBP, arthritis Tylenol. Prior Treatments and Tests H/O foot surgery History of aortic valve replacement History of hip replacement History of knee replacement History of knee replacement Status post hysterectomy COPD (chronic obstructive pulmonary disease) GERD (gastroesophageal reflux disease) Hyperlipidemia Hypertension Morbid obesity Neuropathy Treatment Goals Patient/Caregiver Goals Hoping to gain more strength, be able to tolerate standing and walking, better balance. 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 Using 4- wheeled walker since then. Forgot to use her inhaler this am. PT-OP-H Neuro Start: 08/15/19 08:03 Freq: Status: Active Protocol: Document 08/15/19 08:11 SAK (Rec: 08/15/19 08:50 SAK [id number]) Sensation Evaluation Gross Sensation Gross Sensation Left LE Impaired,Right LE Impaired Sensation Description Paresthesia,Numbness PT-OP-K Range of Motion Start: 08/15/19 08:03 Freq: Status: Active Protocol: Document 08/15/19 08:11 SAK (Rec: 08/15/19 08:50 SAK [id number]) Lumbar Spine Range of Motion Lumbar Spine Active ROM Limitations Pain Hip Goniometric Range of Motion Hip gbaby Hip ROM WFL Yes Knee Goniometric Range of Motion Knee ROM Limitations Knee ROM Limitations Pain Comments genu valgus right Ankle and Foot Goniometric Range of Motion Ankle and Foot gabby Dorsiflexion with Knee Flexed 0 PT-OP-M Strength Start: 08/15/19 08:03 Freq: Status: Active Protocol: Document 08/15/19 08:11 SAK (Rec: 08/15/19 08:50 SAK [id number]) Trunk Strength Trunk Manual Muscle Testing Flexion 2- Poor- Extension 2- Poor- Hip Strength Hip Manual Muscle Testing gabby Flexion (L2) 3+ Fair+ Extension (S1) 2 Poor Abduction 2 Poor Adduction 2 Poor External Rotation 2- Poor- Internal Rotation 2- Poor- Knee Strength Knee Manual Muscle Testing gabby Flexion (S2) 4- Good- Extension (L3) 4- Good- Ankle/Foot Strength Ankle and Foot Manual Muscle Testing gabby Dorsiflexion (L4) 3+ Fair+ Plantarflexion (S1) 4- Good- PT-OP-Q Treatments Start: 08/15/19 08:03 Freq: Status: Active Protocol: Document 01/30/20 09:56 SAK (Rec: 01/30/20 10:49 SAK [id number]) Cardio Equipment Recumbent Stepper (Sci-Fit) Duration (Minutes) 10 Resistance 1 Seat Position 10 Therapeutic Exercises Sitting Exercises 4 Sitting Exercise Name hip ab/ER Resistance L2 TB Reps/Minutes 10x 3 Sitting Exercise Name ball squeeze Reps/Minutes 10x 2 Sitting Exercise Name LAQ Reps/Minutes 10x 1 Sitting Exercise Name gluteal set Reps/Minutes 10x Self-Care/Home Management Treatment Education Patient Education Home Exercise Program Other Education issued HEP for shoulder, encouraged use of home mildred PT-OP-R Modalities Start: 08/15/19 08:03 Freq: Status: Active Protocol: Document 01/30/20 09:56 SAK (Rec: 01/30/20 10:49 SAK [id number]) Hot Pack/Cold Pack Treatment Hot Pack Location right hip Patient Position Sitting Comments seated in chair position of black plinth PT-OP-S Aquatic Treatment Start: 08/15/19 08:03 Freq: Status: Active Protocol: Document 10/25/19 10:15 LJ (Rec: 10/25/19 13:20 LJ [id number]) Aquatics Treatment Pool Entry/Exit Pool Entry/Exit Method Stairs Assistance Standby Assistance Water Walking shallow water jogging Water Level Chest Level Level of Assistance Standby Assistance Comments 2 laps Lunge Walk Water Level Chest Level Level of Assistance Standby Assistance [place] March Water Level Chest Level Level of Assistance Verbal Cues barrell walk Water Level Chest Level Level of Assistance Standby Assistance,Verbal Cues march Water Level Chest Level Level of Assistance Standby Assistance,Verbal Cues Backwards Water Level Chest Level Level of Assistance Standby Assistance,Verbal Cues Sideways Water Level Chest Level Level of Assistance Standby Assistance [place] Water Level Chest Level Level of Assistance Standby Assistance Lower Extremity Stretches Quads Body Position Standing Water Level Chest Level Equipment Small Noodle Reps/Duration 2 x45 sec HS Body Position Standing Water Level Chest Level Equipment Small Noodle Reps/Duration 2 x45 sec Spinal Exercises Wonderboard Body Position Sitting Equipment Ankle Weight- 2.5# Reps/Duration 8 min Comments stationary and forward/ backward movement 1 Details U.E. Horiz AB/AD, shoulder flexion Body Position Standing Water Level Chest Level Comments With core stabilization emphasis, bilateral and unilateral Balance step up/down lg box Body Position Standing Water Level Waist Level Reps/Duration all directions, both LEs leading Comments occasional hh on wall [place] Activities [place] Activities Bicycle,Bicycle Backwards, Cross Country,Running,Hip Abduction/Adduction,Sit Kicks Equipment Lg belt Duration 14 PT-OP-T Assessment and Plan Start: 08/15/19 08:03 Freq: Status: Active Protocol: Document 01/30/20 09:56 [facility] (Rec: 01/30/20 10:12 [facility] [id number]) Physical Therapy Assessment Goals Four Impairment activity tolerance Penitentiary Goal (LTG) Patient to tolerate 45 minute aquatic exercise program without increase in pain or excess fatigue and be independent in aquatic ex program for intermediate teacher fitness and pain management. 01/23/20: aquatic exercise on hold due to Covid19, pool still closed, no aquatic therapy LTG Duration 04/22/20 Three Impairment Gait: limited to household, very short distance community (<250') Short Term Goal (STG) Patient able to walk 500' with 4WW before requiring a rest break 01/23/20: required rest break today after 100' with hurry- cane (forgot walker) STG Duration 03/16/20 Penitentiary Goal (LTG) Patient able to tolerate 10-15 min of standing and walking to allow her to do brief shopping trips before needing to sit down for rest break LTG Duration 04/22/20 Two Impairment weakness bilateral LE's Short Term Goal (STG) Patient to be independent and compliant with HEP to include use of a video for increased compliance. 01/23/20: has not yet been able due to broken VCR and computer problems STG Duration 03/16/20 Penitentiary Goal (LTG) Patient to demonstrate improvement in LE strength by 1 grade throughout to improve her functional mobility and safety 01/23/20: per MMT today, patient weaker in hips and core as well as ankle dorsiflexion LTG Duration 04/22/20 One Impairment balance dysfunction with multiple falls, high fall risk category Short Term Goal (STG) No reported falls 01/23/20: no falls since last seen STG Duration goal met Licensed Physical Therapist Goal (LTG) Patient to demonstrate a improvement in her score on Tinettti gait and balance assessment from high fall risk to no greater than moderate fall risk 01/23/20: patient continues to be in high risk category LTG Duration 04/22/20 Eight Impairment weakness left shoulder Penitentiary Goal (LTG) Patient left UE strength at least 4+/5 01/23/20: no change in patient UE strength LTG Duration 04/22/20 Seven Impairment activity tolerance Licensed Physical Therapist Goal (LTG) Patient able to reach overhead and behind her back with minimal to no pain for purposes of ADL's and usual activities LTG Duration 04/22/20 Assessment Summary Assessment Good compliance to use of exercise video at home. Has had increase in right hip pain since last PT appointment, has not used ice or heat; encouraged to try heat first as at PT today, try ice if heat not helpful. If pain and limited walking persists ( worst pain with weight-bearing ) contact physician for potential x-ray. Physical Therapy Plan Frequency and Duration Frequency of Treatment 2x/wk Duration of Treatment 12 wks Plan of Care Start Date 01/23/20 Plan of Care End Date 04/22/20 Therapeutic Interventions Therapeutic Interventions Aquatic Therapy,Balance Training,Gait Training,Home Exercise Program,Manual Therapy,Neuromuscular Re- education,Patient/Caregiver Education,Self-Care/Home Management,Therapeutic Activities,Therapeutic Exercises Next Visit Focus/Plan Next Note Type Treatment Note Next Visit Plan Continue PT to improve balance , strength, functional mobility and safety. Pain management as needed. Patient to see physician if high pain level persists.
--- NOTE | 2020-02-06 08:09 | PT-OP ANOTE ---
cancelled PT appointment due to hurting her leg
--- NOTE | 2020-02-13 16:15 | PT.OTN ---
Current Diagnoses Other abnormalities of gait and mobility (02/13/20) Physical Therapy Treatment Note PT-OP-A Visit Information Start: 08/15/19 08:03 Freq: Status: Active Protocol: Document 02/13/20 15:11 SAK (Rec: 02/13/20 15:40 [facility] [id number]) Out-Patient Physical Therapy Visit Information Visit Information Visit Type Treatment Note Visit Start Time 15:15 Visit Number Number of RESEARCH AND DEVELOPMENT ENGINEER Visits 0 PT-OP-B Current Condition Start: 08/15/19 08:03 Freq: Status: Active Protocol: Document 08/15/19 08:11 SAK (Rec: 08/15/19 08:50 [facility] [id number]) Current Condition History of Current Condition Onset Date 10+ years Current Complaints poor balance with multiple falls History of Current Condition Reports long history of gradual decrease in strength and balance with multiple falls, legs give out, UEs not able to hold self up. Poor activity level with limited ability to stand or walk due to weakness and LBP. Has had a hard time getting out of house. Removal of parathyroid gland earlier this year has resulted in increase in weight . 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 Wears orthotics majority of the time. Uses cane and 4WW. Going to be measured for custom compression stockings at [facility] pharmacy. Uses heat for LBP, arthritis Tylenol. Prior Treatments and Tests H/O foot surgery History of aortic valve replacement History of hip replacement History of knee replacement History of knee replacement Status post hysterectomy COPD (chronic obstructive pulmonary disease) GERD (gastroesophageal reflux disease) Hyperlipidemia Hypertension Morbid obesity Neuropathy Treatment Goals Patient/Caregiver Goals Hoping to gain more strength, be able to tolerate standing and walking, better balance. 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 today reports she had an increase in pain, not sure why , maybe chair. Had difficulty lifting her right LE after. Relieved by heat at home. PT-OP-H Neuro Start: 08/15/19 08:03 Freq: Status: Active Protocol: Document 08/15/19 08:11 SAK (Rec: 08/15/19 08:50 SAK [id number]) Sensation Evaluation Gross Sensation Gross Sensation Left LE Impaired,Right LE Impaired Sensation Description Paresthesia,Numbness PT-OP-K Range of Motion Start: 08/15/19 08:03 Freq: Status: Active Protocol: Document 08/15/19 08:11 SAK (Rec: 08/15/19 08:50 [facility] [id number]) Lumbar Spine Range of Motion Lumbar Spine Active ROM Limitations Pain Hip Goniometric Range of Motion Hip gabby Hip ROM WFL Yes Knee Goniometric Range of Motion Knee ROM Limitations Knee ROM Limitations Pain Comments genu valgus right Ankle and Foot Goniometric Range of Motion Ankle and Foot gabby Dorsiflexion with Knee Flexed 0 PT-OP-M Strength Start: 08/15/19 08:03 Freq: Status: Active Protocol: Document 08/15/19 08:11 SAK (Rec: 08/15/19 08:50 [facility] [id number]) Trunk Strength Trunk Manual Muscle Testing Flexion 2- Poor- Extension 2- Poor- Hip Strength Hip Manual Muscle Testing gabby Flexion (L2) 3+ Fair+ Extension (S1) 2 Poor Abduction 2 Poor Adduction 2 Poor External Rotation 2- Poor- Internal Rotation 2- Poor- Knee Strength Knee Manual Muscle Testing gabby Flexion (S2) 4- Good- Extension (L3) 4- Good- Ankle/Foot Strength Ankle and Foot Manual Muscle Testing gabby Dorsiflexion (L4) 3+ Fair+ Plantarflexion (S1) 4- Good- PT-OP-Q Treatments Start: 08/15/19 08:03 Freq: Status: Active Protocol: Document 02/13/20 15:11 SAK (Rec: 02/13/20 15:40 SAK [id number]) Cardio Equipment Recumbent Stepper (Sci-Fit) Duration (Minutes) 10 Resistance 2 Seat Position 12 Therapeutic Exercises Sitting Exercises 4 Sitting Exercise Name hip ab/ER Resistance L2 TB Reps/Minutes 10x 3 Sitting Exercise Name ball squeeze Reps/Minutes 10x 2 Sitting Exercise Name LAQ Reps/Minutes 10x 1 Sitting Exercise Name gluteal set Reps/Minutes 10x PT-OP-R Modalities Start: 08/15/19 08:03 Freq: Status: Active Protocol: Document 02/13/20 15:11 SAK (Rec: 02/13/20 15:40 SAK [id number]) Hot Pack/Cold Pack Treatment Hot Pack Location right hip, left shoulder Patient Position Sitting Comments seated in chair position of black plinth PT-OP-S Aquatic Treatment Start: 08/15/19 08:03 Freq: Status: Active Protocol: Document 10/25/19 10:15 LJ (Rec: 10/25/19 13:20 LJ [id number]) Aquatics Treatment Pool Entry/Exit Pool Entry/Exit Method Stairs Assistance Standby Assistance Water Walking shallow water jogging Water Level Chest Level Level of Assistance Standby Assistance Comments 2 laps Lunge Walk Water Level Chest Level Level of Assistance Standby Assistance [place] March Water Level Chest Level Level of Assistance Verbal Cues barrell walk Water Level Chest Level Level of Assistance Standby Assistance,Verbal Cues march Water Level Chest Level Level of Assistance Standby Assistance,Verbal Cues Backwards Water Level Chest Level Level of Assistance Standby Assistance,Verbal Cues Sideways Water Level Chest Level Level of Assistance Standby Assistance [place] Water Level Chest Level Level of Assistance Standby Assistance Lower Extremity Stretches Quads Body Position Standing Water Level Chest Level Equipment Small Noodle Reps/Duration 2 x45 sec HS Body Position Standing Water Level Chest Level Equipment Small Noodle Reps/Duration 2 x45 sec Spinal Exercises Wonderboard Body Position Sitting Equipment Ankle Weight- 2.5# Reps/Duration 8 min Comments stationary and forward/ backward movement 1 Details U.E. Horiz AB/AD, shoulder flexion Body Position Standing Water Level Chest Level Comments With core stabilization emphasis, bilateral and unilateral Balance step up/down lg box Body Position Standing Water Level Waist Level Reps/Duration all directions, both LEs leading Comments occasional hh on wall [place] Activities [place] Activities Bicycle,Bicycle Backwards, Cross Country,Running,Hip Abduction/Adduction,Sit Kicks Equipment Lg belt Duration 14 PT-OP-T Assessment and Plan Start: 08/15/19 08:03 Freq: Status: Active Protocol: Document 02/13/20 15:11 SAK (Rec: 02/13/20 15:40 SAK [id number]) Physical Therapy Assessment Goals Four Impairment activity tolerance Emergency Room Specialist Goal (LTG) Patient to tolerate 45 minute aquatic exercise program without increase in pain or excess fatigue and be independent in aquatic ex program for intermodal customer service fitness and pain management. 01/23/20: aquatic exercise on hold due to Covid19, pool still closed, no aquatic therapy LTG Duration 04/22/20 Three Impairment Gait: limited to household, very short distance community (<250') Short Term Goal (STG) Patient able to walk 500' with 4WW before requiring a rest break 01/23/20: required rest break today after 100' with hurry- cane (forgot walker) STG Duration 03/16/20 Jail Goal (LTG) Patient able to tolerate 10-15 min of standing and walking to allow her to do brief shopping trips before needing to sit down for rest break LTG Duration 04/22/20 Two Impairment weakness bilateral LE's Short Term Goal (STG) Patient to be independent and compliant with HEP to include use of a video for increased compliance. 01/23/20: has not yet been able due to broken VCR and computer problems STG Duration 03/16/20 Emergency Room Specialist Goal (LTG) Patient to demonstrate improvement in LE strength by 1 grade throughout to improve her functional mobility and safety 01/23/20: per MMT today, patient weaker in hips and core as well as ankle dorsiflexion LTG Duration 04/22/20 One Impairment balance dysfunction with multiple falls, high fall risk category Short Term Goal (STG) No reported falls 01/23/20: no falls since last seen STG Duration goal met Jail Goal (LTG) Patient to demonstrate a improvement in her score on Tinettti gait and balance assessment from high fall risk to no greater than moderate fall risk 01/23/20: patient continues to be in high risk category LTG Duration 04/22/20 Eight Impairment weakness left shoulder Emergency Room Specialist Goal (LTG) Patient left UE strength at least 4+/5 01/23/20: no change in patient UE strength LTG Duration 04/22/20 Seven Impairment activity tolerance Emergency Room Specialist Goal (LTG) Patient able to reach overhead and behind her back with minimal to no pain for purposes of ADL's and usual activities LTG Duration 04/22/20 Assessment Summary Assessment Patient compliance to HEP low, though overall increase in activity level. Pain decreased with use of heat low back. Left shoulder ROM mod limited, no use of pulleys at home. Physical Therapy Plan Frequency and Duration Frequency of Treatment 2x/wk Duration of Treatment 12 wks Plan of Care Start Date 01/23/20 Plan of Care End Date 04/22/20 Therapeutic Interventions Therapeutic Interventions Aquatic Therapy,Balance Training,Gait Training,Home Exercise Program,Manual Therapy,Neuromuscular Re- education,Patient/Caregiver Education,Self-Care/Home Management,Therapeutic Activities,Therapeutic Exercises Next Visit Focus/Plan Next Note Type Treatment Note Next Visit Plan Continue PT to improve balance , strength, functional mobility and safety. Pain management as needed. Patient to see physician if high pain level persists.
--- NOTE | 2020-02-15 12:23 | PT.OTN ---
Current Diagnoses Other abnormalities of gait and mobility (02/15/20) Physical Therapy Treatment Note PT-OP-A Visit Information Start: 08/15/19 08:03 Freq: Status: Active Protocol: Document 02/15/20 10:31 SAK (Rec: 02/15/20 11:14 SAK [id number]) Out-Patient Physical Therapy Visit Information Visit Information Visit Type Treatment Note Visit Start Time 10:30 Visit Stop Time 11:25 Total Visit Minutes 55 Visit Number Number of LONG WALL SHEAR OPERATOR Visits 0 PT-OP-B Current Condition Start: 08/15/19 08:03 Freq: Status: Active Protocol: Document 08/15/19 08:11 SAK (Rec: 08/15/19 08:50 SAK [id number]) Current Condition History of Current Condition Onset Date 10+ years Current Complaints poor balance with multiple falls History of Current Condition Reports long history of gradual decrease in strength and balance with multiple falls, legs give out, UEs not able to hold self up. Poor activity level with limited ability to stand or walk due to weakness and LBP. Has had a hard time getting out of house. Removal of parathyroid gland earlier this year has resulted in increase in weight . 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 Wears orthotics majority of the time. Uses cane and 4WW. Going to be measured for custom compression stockings at [facility]. Uses heat for LBP, arthritis Tylenol. Prior Treatments and Tests H/O foot surgery History of aortic valve replacement History of hip replacement History of knee replacement History of knee replacement Status post hysterectomy COPD (chronic obstructive pulmonary disease) GERD (gastroesophageal reflux disease) Hyperlipidemia Hypertension Morbid obesity Neuropathy Treatment Goals Patient/Caregiver Goals Hoping to gain more strength, be able to tolerate standing and walking, better balance. 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 Better this am. Did ok after PT last sesison. PT-OP-H Neuro Start: 08/15/19 08:03 Freq: Status: Active Protocol: Document 08/15/19 08:11 SAK (Rec: 08/15/19 08:50 SAK [id number]) Sensation Evaluation Gross Sensation Gross Sensation Left LE Impaired,Right LE Impaired Sensation Description Paresthesia,Numbness PT-OP-K Range of Motion Start: 08/15/19 08:03 Freq: Status: Active Protocol: Document 08/15/19 08:11 SAK (Rec: 08/15/19 08:50 SAK [id number]) Lumbar Spine Range of Motion Lumbar Spine Active ROM Limitations Pain Hip Goniometric Range of Motion Hip gabby Hip ROM WFL Yes Knee Goniometric Range of Motion Knee ROM Limitations Knee ROM Limitations Pain Comments genu valgus right Ankle and Foot Goniometric Range of Motion Ankle and Foot gabby Dorsiflexion with Knee Flexed 0 PT-OP-M Strength Start: 08/15/19 08:03 Freq: Status: Active Protocol: Document 08/15/19 08:11 SAK (Rec: 08/15/19 08:50 SAK [id number]) Trunk Strength Trunk Manual Muscle Testing Flexion 2- Poor- Extension 2- Poor- Hip Strength Hip Manual Muscle Testing gabby Flexion (L2) 3+ Fair+ Extension (S1) 2 Poor Abduction 2 Poor Adduction 2 Poor External Rotation 2- Poor- Internal Rotation 2- Poor- Knee Strength Knee Manual Muscle Testing gabby Flexion (S2) 4- Good- Extension (L3) 4- Good- Ankle/Foot Strength Ankle and Foot Manual Muscle Testing gabby Dorsiflexion (L4) 3+ Fair+ Plantarflexion (S1) 4- Good- PT-OP-Q Treatments Start: 08/15/19 08:03 Freq: Status: Active Protocol: Document 02/15/20 10:31 SAK (Rec: 02/15/20 11:14 SAK [id number]) Cardio Equipment Recumbent Stepper (Sci-Fit) Duration (Minutes) 10 Resistance 2 Seat Position 12 Therapeutic Exercises Sitting Exercises chair crunches Reps/Minutes 10x Row, shoulder ext Resistance L1 TB Reps/Minutes 10x 6 Sitting Exercise Name GH flex Equipment Used pulleys 5 Sitting Exercise Name march Resistance 1# 4 Sitting Exercise Name hip ab/ER Resistance L2 TB Reps/Minutes 10x 3 Sitting Exercise Name ball squeeze Reps/Minutes 10x 2 Sitting Exercise Name LAQ Resistance 1# Reps/Minutes 10x 1 Sitting Exercise Name gluteal set Reps/Minutes 10x Standing Exercises march Reps/Minutes 10x mini-squats Comments deferred Manual Therapy Treatment Soft Tissue Mobilization 1 Body Location upper traps, periscapular region left. PT-OP-R Modalities Start: 08/15/19 08:03 Freq: Status: Active Protocol: Document 02/15/20 10:31 SAK (Rec: 02/15/20 11:14 SAK [id number]) Hot Pack/Cold Pack Treatment Hot Pack Location right hip, left shoulder Patient Position Sitting Comments chair PT-OP-S Aquatic Treatment Start: 08/15/19 08:03 Freq: Status: Active Protocol: Document 10/25/19 10:15 LJ (Rec: 10/25/19 13:20 LJ [id number]) Aquatics Treatment Pool Entry/Exit Pool Entry/Exit Method Stairs Assistance Standby Assistance Water Walking shallow water jogging Water Level Chest Level Level of Assistance Standby Assistance Comments 2 laps Lunge Walk Water Level Chest Level Level of Assistance Standby Assistance [place] October Water Level Chest Level Level of Assistance Verbal Cues barrell walk Water Level Chest Level Level of Assistance Standby Assistance,Verbal Cues march Water Level Chest Level Level of Assistance Standby Assistance,Verbal Cues Backwards Water Level Chest Level Level of Assistance Standby Assistance,Verbal Cues Sideways Water Level Chest Level Level of Assistance Standby Assistance [place] Water Level Chest Level Level of Assistance Standby Assistance Lower Extremity Stretches Quads Body Position Standing Water Level Chest Level Equipment Small Noodle Reps/Duration 2 x45 sec HS Body Position Standing Water Level Chest Level Equipment Small Noodle Reps/Duration 2 x45 sec Spinal Exercises Wonderboard Body Position Sitting Equipment Ankle Weight- 2.5# Reps/Duration 8 min Comments stationary and forward/ backward movement 1 Details U.E. Horiz AB/AD, shoulder flexion Body Position Standing Water Level Chest Level Comments With core stabilization emphasis, bilateral and unilateral Balance step up/down lg box Body Position Standing Water Level Waist Level Reps/Duration all directions, both LEs leading Comments occasional hh on wall [place] Activities [place] Activities Bicycle,Bicycle Backwards, Cross Country,Running,Hip Abduction/Adduction,Sit Kicks Equipment Lg belt Duration 14 PT-OP-T Assessment and Plan Start: 08/15/19 08:03 Freq: Status: Active Protocol: Document 02/15/20 10:31 SAK (Rec: 02/15/20 11:14 [facility] [id number]) Physical Therapy Assessment Goals Four Impairment activity tolerance Window Trimmer Apprentice Goal (LTG) Patient to tolerate 45 minute aquatic exercise program without increase in pain or excess fatigue and be independent in aquatic ex program for skilled nursing fitness and pain management. 01/23/20: aquatic exercise on hold due to Covid19, pool still closed, no aquatic therapy LTG Duration 04/22/20 Three Impairment Gait: limited to household, very short distance community (<250') Short Term Goal (STG) Patient able to walk 500' with 4WW before requiring a rest break 01/23/20: required rest break today after 100' with hurry- cane (forgot walker) STG Duration 03/16/20 Shelter Goal (LTG) Patient able to tolerate 10-15 min of standing and walking to allow her to do brief shopping trips before needing to sit down for rest break LTG Duration 04/22/20 Two Impairment weakness bilateral LE's Short Term Goal (STG) Patient to be independent and compliant with HEP to include use of a video for increased compliance. 01/23/20: has not yet been able due to broken VCR and computer problems STG Duration 03/16/20 Shelter Goal (LTG) Patient to demonstrate improvement in LE strength by 1 grade throughout to improve her functional mobility and safety 01/23/20: per MMT today, patient weaker in hips and core as well as ankle dorsiflexion LTG Duration 04/22/20 One Impairment balance dysfunction with multiple falls, high fall risk category Short Term Goal (STG) No reported falls 01/23/20: no falls since last seen STG Duration goal met Window Trimmer Apprentice Goal (LTG) Patient to demonstrate a improvement in her score on Tinettti gait and balance assessment from high fall risk to no greater than moderate fall risk 01/23/20: patient continues to be in high risk category LTG Duration 04/22/20 Eight Impairment weakness left shoulder Window Trimmer Apprentice Goal (LTG) Patient left UE strength at least 4+/5 01/23/20: no change in patient UE strength LTG Duration 04/22/20 Seven Impairment activity tolerance Window Trimmer Apprentice Goal (LTG) Patient able to reach overhead and behind her back with minimal to no pain for purposes of ADL's and usual activities LTG Duration 04/22/20 Assessment Summary Assessment Sl increase in activity tolerance. Improved left UE ROM, states she feels soft tissue work last session helpful. Physical Therapy Plan Frequency and Duration Frequency of Treatment 2x/wk Duration of Treatment 12 wks Plan of Care Start Date 01/23/20 Plan of Care End Date 04/22/20 Therapeutic Interventions Therapeutic Interventions Aquatic Therapy,Balance Training,Gait Training,Home Exercise Program,Manual Therapy,Neuromuscular Re- education,Patient/Caregiver Education,Self-Care/Home Management,Therapeutic Activities,Therapeutic Exercises Next Visit Focus/Plan Next Note Type Treatment Note Next Visit Plan Continue PT to improve balance , strength, functional mobility and safety. Pain management as needed.
--- NOTE | 2020-02-20 12:51 | PT.OTN ---
Current Diagnoses Other abnormalities of gait and mobility (02/20/20) Physical Therapy Treatment Note PT-OP-A Visit Information Start: 08/15/19 08:03 Freq: Status: Active Protocol: Document 02/20/20 10:41 SAK (Rec: 02/20/20 10:46 SAK [id number]) Out-Patient Physical Therapy Visit Information Visit Information Visit Type Treatment Note Visit Start Time 10:30 Visit Stop Time 11:26 Total Visit Minutes 56 Visit Number Number of MEDICAL DIR Visits 0 PT-OP-B Current Condition Start: 08/15/19 08:03 Freq: Status: Active Protocol: Document 08/15/19 08:11 SAK (Rec: 08/15/19 08:50 SAK [id number]) Current Condition History of Current Condition Onset Date 10+ years Current Complaints poor balance with multiple falls History of Current Condition Reports long history of gradual decrease in strength and balance with multiple falls, legs give out, UEs not able to hold self up. Poor activity level with limited ability to stand or walk due to weakness and LBP. Has had a hard time getting out of house. Removal of parathyroid gland earlier this year has resulted in increase in weight . 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 Wears orthotics majority of the time. Uses cane and 4WW. Going to be measured for custom compression stockings at [facility] pharmacy. Uses heat for LBP, arthritis Tylenol. Prior Treatments and Tests H/O foot surgery History of aortic valve replacement History of hip replacement History of knee replacement History of knee replacement Status post hysterectomy COPD (chronic obstructive pulmonary disease) GERD (gastroesophageal reflux disease) Hyperlipidemia Hypertension Morbid obesity Neuropathy Treatment Goals Patient/Caregiver Goals Hoping to gain more strength, be able to tolerate standing and walking, better balance. 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 Doing HEP for her legs sitting and standing but tolerance for standing very low. PT-OP-H Neuro Start: 08/15/19 08:03 Freq: Status: Active Protocol: Document 08/15/19 08:11 SAK (Rec: 08/15/19 08:50 SAK [id number]) Sensation Evaluation Gross Sensation Gross Sensation Left LE Impaired,Right LE Impaired Sensation Description Paresthesia,Numbness PT-OP-K Range of Motion Start: 08/15/19 08:03 Freq: Status: Active Protocol: Document 08/15/19 08:11 SAK (Rec: 08/15/19 08:50 SAK [id number]) Lumbar Spine Range of Motion Lumbar Spine Active ROM Limitations Pain Hip Goniometric Range of Motion Hip gabby Hip ROM WFL Yes Knee Goniometric Range of Motion Knee ROM Limitations Knee ROM Limitations Pain Comments genu valgus right Ankle and Foot Goniometric Range of Motion Ankle and Foot gabby Dorsiflexion with Knee Flexed 0 PT-OP-M Strength Start: 08/15/19 08:03 Freq: Status: Active Protocol: Document 08/15/19 08:11 SAK (Rec: 08/15/19 08:50 SAK [id number]) Trunk Strength Trunk Manual Muscle Testing Flexion 2- Poor- Extension 2- Poor- Hip Strength Hip Manual Muscle Testing gabby Flexion (L2) 3+ Fair+ Extension (S1) 2 Poor Abduction 2 Poor Adduction 2 Poor External Rotation 2- Poor- Internal Rotation 2- Poor- Knee Strength Knee Manual Muscle Testing gabby Flexion (S2) 4- Good- Extension (L3) 4- Good- Ankle/Foot Strength Ankle and Foot Manual Muscle Testing gabby Dorsiflexion (L4) 3+ Fair+ Plantarflexion (S1) 4- Good- PT-OP-Q Treatments Start: 08/15/19 08:03 Freq: Status: Active Protocol: Document 02/20/20 10:41 SAK (Rec: 02/20/20 10:46 SAK [id number]) Cardio Equipment Recumbent Stepper (Sci-Fit) Duration (Minutes) 11 Resistance 2.2 Seat Position 13 Therapeutic Exercises Sitting Exercises chair crunches Reps/Minutes 10x 3 Sitting Exercise Name ball squeeze Reps/Minutes 10x Standing Exercises mini-squats Reps/Minutes 5x Comments cues for posture, form, muscle activation sequence Manual Therapy Treatment Soft Tissue Mobilization 1 Body Location upper traps, periscapular region left. Neuro Re-Education Treatment Balance Activities weight shift Details side to side, AP Reps/Duration 10x ea Comments parallel bars hurdles Surface firm Reps/Duration 4x 4 hurdles Comments parallel bars foam stand Details EO Surface blue foam Comments parallel bars standing bal Details EO and EC Surface firm Comments parallel bars PT-OP-R Modalities Start: 08/15/19 08:03 Freq: Status: Active Protocol: Document 02/20/20 10:41 SAK (Rec: 02/20/20 10:46 [facility] [id number]) Hot Pack/Cold Pack Treatment Hot Pack Location right hip, left shoulder Patient Position Sitting Comments chair PT-OP-S Aquatic Treatment Start: 08/15/19 08:03 Freq: Status: Active Protocol: Document 10/25/19 10:15 LJ (Rec: 10/25/19 13:20 LJ [id number]) Aquatics Treatment Pool Entry/Exit Pool Entry/Exit Method Stairs Assistance Standby Assistance Water Walking shallow water jogging Water Level Chest Level Level of Assistance Standby Assistance Comments 2 laps Lunge Walk Water Level Chest Level Level of Assistance Standby Assistance [place] March Water Level Chest Level Level of Assistance Verbal Cues barrell walk Water Level Chest Level Level of Assistance Standby Assistance,Verbal Cues march Water Level Chest Level Level of Assistance Standby Assistance,Verbal Cues Backwards Water Level Chest Level Level of Assistance Standby Assistance,Verbal Cues Sideways Water Level Chest Level Level of Assistance Standby Assistance [place] Water Level Chest Level Level of Assistance Standby Assistance Lower Extremity Stretches Quads Body Position Standing Water Level Chest Level Equipment Small Noodle Reps/Duration 2 x45 sec HS Body Position Standing Water Level Chest Level Equipment Small Noodle Reps/Duration 2 x45 sec Spinal Exercises Wonderboard Body Position Sitting Equipment Ankle Weight- 2.5# Reps/Duration 8 min Comments stationary and forward/ backward movement 1 Details U.E. Horiz AB/AD, shoulder flexion Body Position Standing Water Level Chest Level Comments With core stabilization emphasis, bilateral and unilateral Balance step up/down lg box Body Position Standing Water Level Waist Level Reps/Duration all directions, both LEs leading Comments occasional hh on wall [place] Activities [place] Activities Bicycle,Bicycle Backwards, Cross Country,Running,Hip Abduction/Adduction,Sit Kicks Equipment Lg belt Duration 14 PT-OP-T Assessment and Plan Start: 08/15/19 08:03 Freq: Status: Active Protocol: Document 02/20/20 10:41 SAK (Rec: 02/20/20 10:46 [facility] [id number]) Physical Therapy Assessment Goals Four Impairment activity tolerance Project Archivist Goal (LTG) Patient to tolerate 45 minute aquatic exercise program without increase in pain or excess fatigue and be independent in aquatic ex program for shelter fitness and pain management. 01/23/20: aquatic exercise on hold due to Covid19, pool still closed, no aquatic therapy LTG Duration 04/22/20 Three Impairment Gait: limited to household, very short distance community (<250') Short Term Goal (STG) Patient able to walk 500' with 4WW before requiring a rest break 01/23/20: required rest break today after 100' with hurry- cane (forgot walker) STG Duration 03/16/20 Jail Goal (LTG) Patient able to tolerate 10-15 min of standing and walking to allow her to do brief shopping trips before needing to sit down for rest break LTG Duration 04/22/20 Two Impairment weakness bilateral LE's Short Term Goal (STG) Patient to be independent and compliant with HEP to include use of a video for increased compliance. 01/23/20: has not yet been able due to broken VCR and computer problems STG Duration 03/16/20 Jail Goal (LTG) Patient to demonstrate improvement in LE strength by 1 grade throughout to improve her functional mobility and safety 01/23/20: per MMT today, patient weaker in hips and core as well as ankle dorsiflexion LTG Duration 04/22/20 One Impairment balance dysfunction with multiple falls, high fall risk category Short Term Goal (STG) No reported falls 01/23/20: no falls since last seen STG Duration goal met Project Archivist Goal (LTG) Patient to demonstrate a improvement in her score on Tinettti gait and balance assessment from high fall risk to no greater than moderate fall risk 01/23/20: patient continues to be in high risk category LTG Duration 04/22/20 Eight Impairment weakness left shoulder Jail Goal (LTG) Patient left UE strength at least 4+/5 01/23/20: no change in patient UE strength LTG Duration 04/22/20 Seven Impairment activity tolerance Jail Goal (LTG) Patient able to reach overhead and behind her back with minimal to no pain for purposes of ADL's and usual activities LTG Duration 04/22/20 Assessment Summary Assessment Increased focus on closed chain balance exercises today, frequent rest breaks. Increased performance of HEP encouraged. Physical Therapy Plan Frequency and Duration Frequency of Treatment 2x/wk Duration of Treatment 12 wks Plan of Care Start Date 01/23/20 Plan of Care End Date 04/22/20 Therapeutic Interventions Therapeutic Interventions Aquatic Therapy,Balance Training,Gait Training,Home Exercise Program,Manual Therapy,Neuromuscular Re- education,Patient/Caregiver Education,Self-Care/Home Management,Therapeutic Activities,Therapeutic Exercises Next Visit Focus/Plan Next Note Type Treatment Note Next Visit Plan Continue PT to improve balance , strength, functional mobility and safety. Pain management as needed.
--- NOTE | 2020-02-22 09:09 | PT-OP ANOTE ---
patient cancelled PT appointment
--- NOTE | 2020-02-27 16:27 | PT.OTN ---
Current Diagnoses Other abnormalities of gait and mobility (02/27/20) Physical Therapy Treatment Note PT-OP-A Visit Information Start: 08/15/19 08:03 Freq: Status: Active Protocol: Document 02/27/20 16:18 [facility] (Rec: 02/27/20 16:27 [facility] [id number]) Out-Patient Physical Therapy Visit Information Visit Information Visit Type Treatment Note Visit Start Time 13:45 Visit Stop Time 14:35 Total Visit Minutes 50 Visit Number PT-OP-B Current Condition Start: 08/15/19 08:03 Freq: Status: Active Protocol: Document 08/15/19 08:11 SAK (Rec: 08/15/19 08:50 [facility] [id number]) Current Condition History of Current Condition Onset Date 10+ years Current Complaints poor balance with multiple falls History of Current Condition Reports long history of gradual decrease in strength and balance with multiple falls, legs give out, UEs not able to hold self up. Poor activity level with limited ability to stand or walk due to weakness and LBP. Has had a hard time getting out of house. Removal of parathyroid gland earlier this year has resulted in increase in weight . 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 Wears orthotics majority of the time. Uses cane and 4WW. Going to be measured for custom compression stockings at [facility]. Uses heat for LBP, arthritis Tylenol. Prior Treatments and Tests H/O foot surgery History of aortic valve replacement History of hip replacement History of knee replacement History of knee replacement Status post hysterectomy COPD (chronic obstructive pulmonary disease) GERD (gastroesophageal reflux disease) Hyperlipidemia Hypertension Morbid obesity Neuropathy Treatment Goals Patient/Caregiver Goals Hoping to gain more strength, be able to tolerate standing and walking, better balance. 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 Better today. Trying to do HEP, feels weak. PT-OP-H Neuro Start: 08/15/19 08:03 Freq: Status: Active Protocol: Document 08/15/19 08:11 SAK (Rec: 08/15/19 08:50 [facility]AK [id number]) Sensation Evaluation Gross Sensation Gross Sensation Left LE Impaired,Right LE Impaired Sensation Description Paresthesia,Numbness PT-OP-K Range of Motion Start: 08/15/19 08:03 Freq: Status: Active Protocol: Document 08/15/19 08:11 SAK (Rec: 08/15/19 08:50 [facility] [id number]) Lumbar Spine Range of Motion Lumbar Spine Active ROM Limitations Pain Hip Goniometric Range of Motion Hip gabby Hip ROM WFL Yes Knee Goniometric Range of Motion Knee ROM Limitations Knee ROM Limitations Pain Comments genu valgus right Ankle and Foot Goniometric Range of Motion Ankle and Foot gabby Dorsiflexion with Knee Flexed 0 PT-OP-M Strength Start: 08/15/19 08:03 Freq: Status: Active Protocol: Document 08/15/19 08:11 SAK (Rec: 08/15/19 08:50 [facility] [id number]) Trunk Strength Trunk Manual Muscle Testing Flexion 2- Poor- Extension 2- Poor- Hip Strength Hip Manual Muscle Testing gabby Flexion (L2) 3+ Fair+ Extension (S1) 2 Poor Abduction 2 Poor Adduction 2 Poor External Rotation 2- Poor- Internal Rotation 2- Poor- Knee Strength Knee Manual Muscle Testing gabby Flexion (S2) 4- Good- Extension (L3) 4- Good- Ankle/Foot Strength Ankle and Foot Manual Muscle Testing gabby Dorsiflexion (L4) 3+ Fair+ Plantarflexion (S1) 4- Good- PT-OP-Q Treatments Start: 08/15/19 08:03 Freq: Status: Active Protocol: Document 02/27/20 16:18 SAK (Rec: 02/27/20 16:27 [facility] [id number]) Cardio Equipment Recumbent Stepper (Sci-Fit) Duration (Minutes) 10 Resistance 2.2 Seat Position 13 Gym Equipment Shuttle Recovery Unilateral Squats Resistance L 62#, R 50# Shuttle Recovery Platform Stable Reps/Time L 20, R 2 x10 Bilateral Squats Resistance 75 Shuttle Recovery Platform Stable Reps/Time 20 Therapeutic Exercises Sitting Exercises shoulder ER Equipment Used L1 TB Reps/Minutes 10x Row, shoulder ext Resistance L1 TB Reps/Minutes 10x 6 Sitting Exercise Name GH flex Equipment Used pulleys 2 Sitting Exercise Name LAQ Resistance 1# Reps/Minutes 10x Manual Therapy Treatment Soft Tissue Mobilization 1 Body Location upper traps, periscapular region left. Comments shown how to use a raquetball for massage PT-OP-R Modalities Start: 08/15/19 08:03 Freq: Status: Active Protocol: Document 02/27/20 16:18 [facility] (Rec: 02/27/20 16:27 [facility]AK [id number]) Ultrasound Therapy Treatment left shoulder Treatment Duration (minutes) 8 Patient Position Sitting Coupling Medium Ultrasound Gel Mode Setting Continuous Duty Cycle 100% Intensity Setting (w/cm2) 1.2 PT-OP-S Aquatic Treatment Start: 08/15/19 08:03 Freq: Status: Active Protocol: Document 10/25/19 10:15 [facility] (Rec: 10/25/19 13:20 [facility] [id number]) Aquatics Treatment Pool Entry/Exit Pool Entry/Exit Method Stairs Assistance Standby Assistance Water Walking shallow water jogging Water Level Chest Level Level of Assistance Standby Assistance Comments 2 laps Lunge Walk Water Level Chest Level Level of Assistance Standby Assistance [place] March Water Level Chest Level Level of Assistance Verbal Cues barrell walk Water Level Chest Level Level of Assistance Standby Assistance,Verbal Cues march Water Level Chest Level Level of Assistance Standby Assistance,Verbal Cues Backwards Water Level Chest Level Level of Assistance Standby Assistance,Verbal Cues Sideways Water Level Chest Level Level of Assistance Standby Assistance [place] Water Level Chest Level Level of Assistance Standby Assistance Lower Extremity Stretches Quads Body Position Standing Water Level Chest Level Equipment Small Noodle Reps/Duration 2 x45 sec HS Body Position Standing Water Level Chest Level Equipment Small Noodle Reps/Duration 2 x45 sec Spinal Exercises Wonderboard Body Position Sitting Equipment Ankle Weight- 2.5# Reps/Duration 8 min Comments stationary and forward/ backward movement 1 Details U.E. Horiz AB/AD, shoulder flexion Body Position Standing Water Level Chest Level Comments With core stabilization emphasis, bilateral and unilateral Balance step up/down lg box Body Position Standing Water Level Waist Level Reps/Duration all directions, both LEs leading Comments occasional hh on wall [place] Activities [place] Activities Bicycle,Bicycle Backwards, Cross Country,Running,Hip Abduction/Adduction,Sit Kicks Equipment Lg belt Duration 14 PT-OP-T Assessment and Plan Start: 08/15/19 08:03 Freq: Status: Active Protocol: Document 02/27/20 16:18 [facility] (Rec: 02/27/20 16:27 [facility] [id number]) Physical Therapy Assessment Goals Four Impairment activity tolerance Certified Legal Secretary Specialist Goal (LTG) Patient to tolerate 45 minute aquatic exercise program without increase in pain or excess fatigue and be independent in aquatic ex program for terminal makeup operator fitness and pain management. 01/23/20: aquatic exercise on hold due to Covid19, pool still closed, no aquatic therapy 02/27/20: pool still closed LTG Duration 04/22/20 Three Impairment Gait: limited to household, very short distance community (<250') Short Term Goal (STG) Patient able to walk 500' with 4WW before requiring a rest break 01/23/20: required rest break today after 100' with hurry- cane (forgot walker) 02/27/20: able to slowly ambulate 200' before requiring rest STG Duration 03/16/20 [facility] Goal (LTG) Patient able to tolerate 10-15 min of standing and walking to allow her to do brief shopping trips before needing to sit down for rest break LTG Duration 04/22/20 Two Impairment weakness bilateral LE's Short Term Goal (STG) Patient to be independent and compliant with HEP to include use of a video for increased compliance. 01/23/20: has not yet been able due to broken VCR and computer problems 02/27/20: goal met STG Duration 03/16/20 [facility] Goal (LTG) Patient to demonstrate improvement in LE strength by 1 grade throughout to improve her functional mobility and safety 01/23/20: per MMT today, patient weaker in hips and core as well as ankle dorsiflexion 02/27/20: goal progress LTG Duration 04/22/20 One Impairment balance dysfunction with multiple falls, high fall risk category Short Term Goal (STG) No reported falls 01/23/20: no falls since last seen 02/27/20: no reported falls STG Duration goal met [facility] Goal (LTG) Patient to demonstrate a improvement in her score on Tinettti gait and balance assessment from high fall risk to no greater than moderate fall risk 01/23/20: patient continues to be in high risk category 02/27/20: still high risk LTG Duration 04/22/20 Eight Impairment weakness left shoulder [facility] Goal (LTG) Patient left UE strength at least 4+/5 01/23/20: no change in patient UE strength 02/27/20: goal progress LTG Duration 04/22/20 Seven Impairment activity tolerance Certified Legal Secretary Specialist Goal (LTG) Patient able to reach overhead and behind her back with minimal to no pain for purposes of ADL's and usual activities 02/27/20: goal progress, with pulleys GH flexion now WFL, unable to achieve actively yet . LTG Duration 04/22/20 Assessment Summary Assessment Improved shoulder pain with therapy today, trial ultrasound. Has difficulty breathing wearing mask in therapy so endurance at least somewhat hampered by that. Fair compliance to HEP. Unable to start aquatic therapy yet due to pool closure. Physical Therapy Plan Frequency and Duration Frequency of Treatment 2x/wk Duration of Treatment 12 wks Plan of Care Start Date 01/23/20 Plan of Care End Date 04/22/20 Therapeutic Interventions Therapeutic Interventions Aquatic Therapy,Balance Training,Gait Training,Home Exercise Program,Manual Therapy,Neuromuscular Re- education,Patient/Caregiver Education,Self-Care/Home Management,Therapeutic Activities,Therapeutic Exercises Next Visit Focus/Plan Next Note Type Treatment Note Next Visit Plan Continue PT to improve balance , strength, functional mobility and safety. Pain management as needed.
--- NOTE | 2020-02-29 10:51 | PT.OTN ---
Current Diagnoses Other abnormalities of gait and mobility (02/29/20) Physical Therapy Treatment Note PT-OP-A Visit Information Start: 08/15/19 08:03 Freq: Status: Active Protocol: Document 02/29/20 09:52 [facility] (Rec: 02/29/20 10:39 [facility]AK [id number]) Out-Patient Physical Therapy Visit Information Visit Information Visit Type Treatment Note Visit Start Time 09:45 Visit Stop Time 10:35 Total Visit Minutes 50 Visit Number 21 PT-OP-B Current Condition Start: 08/15/19 08:03 Freq: Status: Active Protocol: Document 08/15/19 08:11 SAK (Rec: 08/15/19 08:50 [facility]AK [id number]) Current Condition History of Current Condition Onset Date 10+ years Current Complaints poor balance with multiple falls History of Current Condition Reports long history of gradual decrease in strength and balance with multiple falls, legs give out, UEs not able to hold self up. Poor activity level with limited ability to stand or walk due to weakness and LBP. Has had a hard time getting out of house. Removal of parathyroid gland earlier this year has resulted in increase in weight . 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 Wears orthotics majority of the time. Uses cane and 4WW. Going to be measured for custom compression stockings at [facility] pharmacy. Uses heat for LBP, arthritis Tylenol. Prior Treatments and Tests H/O foot surgery History of aortic valve replacement History of hip replacement History of knee replacement History of knee replacement Status post hysterectomy COPD (chronic obstructive pulmonary disease) GERD (gastroesophageal reflux disease) Hyperlipidemia Hypertension Morbid obesity Neuropathy Treatment Goals Patient/Caregiver Goals Hoping to gain more strength, be able to tolerate standing and walking, better balance. 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 Sat in 4WW to make jam, can't tolerate standing long. Reports shoulder pain improved after last session. PT-OP-H Neuro Start: 08/15/19 08:03 Freq: Status: Active Protocol: Document 08/15/19 08:11 SAK (Rec: 08/15/19 08:50 SAK [id number]) Sensation Evaluation Gross Sensation Gross Sensation Left LE Impaired,Right LE Impaired Sensation Description Paresthesia,Numbness PT-OP-K Range of Motion Start: 08/15/19 08:03 Freq: Status: Active Protocol: Document 08/15/19 08:11 SAK (Rec: 08/15/19 08:50 SAK [id number]) Lumbar Spine Range of Motion Lumbar Spine Active ROM Limitations Pain Hip Goniometric Range of Motion Hip gabby Hip ROM WFL Yes Knee Goniometric Range of Motion Knee ROM Limitations Knee ROM Limitations Pain Comments genu valgus right Ankle and Foot Goniometric Range of Motion Ankle and Foot gabby Dorsiflexion with Knee Flexed 0 PT-OP-M Strength Start: 08/15/19 08:03 Freq: Status: Active Protocol: Document 08/15/19 08:11 SAK (Rec: 08/15/19 08:50 [facility] [id number]) Trunk Strength Trunk Manual Muscle Testing Flexion 2- Poor- Extension 2- Poor- Hip Strength Hip Manual Muscle Testing gabby Flexion (L2) 3+ Fair+ Extension (S1) 2 Poor Abduction 2 Poor Adduction 2 Poor External Rotation 2- Poor- Internal Rotation 2- Poor- Knee Strength Knee Manual Muscle Testing gabby Flexion (S2) 4- Good- Extension (L3) 4- Good- Ankle/Foot Strength Ankle and Foot Manual Muscle Testing gabby Dorsiflexion (L4) 3+ Fair+ Plantarflexion (S1) 4- Good- PT-OP-Q Treatments Start: 08/15/19 08:03 Freq: Status: Active Protocol: Document 02/29/20 09:52 [facility] (Rec: 02/29/20 10:39 SAK [id number]) Cardio Equipment Recumbent Stepper (Sci-Fit) Duration (Minutes) 10 Resistance 2.2 Seat Position 13 Gym Equipment Shuttle Recovery Unilateral Squats Resistance L 62#, R 50# Shuttle Recovery Platform Stable Reps/Time L 20, R 2 x10 Bilateral Squats Resistance 75 Shuttle Recovery Platform Stable Reps/Time 20 Therapeutic Exercises Sitting Exercises Row, shoulder ext Resistance L1 TB Reps/Minutes 10x 6 Sitting Exercise Name GH flex Equipment Used pulleys 4 Sitting Exercise Name shoulder ER Resistance L1 TB Reps/Minutes 10x 2 Sitting Exercise Name LAQ Resistance 1# Reps/Minutes 10x Manual Therapy Treatment Soft Tissue Mobilization 1 Body Location upper traps, periscapular region left. PT-OP-R Modalities Start: 08/15/19 08:03 Freq: Status: Active Protocol: Document 02/29/20 09:52 [facility] (Rec: 02/29/20 10:39 [facility] [id number]) Ultrasound Therapy Treatment left shoulder Treatment Duration (minutes) 8 Patient Position Sitting Coupling Medium Ultrasound Gel Mode Setting Continuous Duty Cycle 100% Intensity Setting (w/cm2) 1.2 PT-OP-S Aquatic Treatment Start: 08/15/19 08:03 Freq: Status: Active Protocol: Document 10/25/19 10:15 [facility] (Rec: 10/25/19 13:20 [id number]) Aquatics Treatment Pool Entry/Exit Pool Entry/Exit Method Stairs Assistance Standby Assistance Water Walking shallow water jogging Water Level Chest Level Level of Assistance Standby Assistance Comments 2 laps Lunge Walk Water Level Chest Level Level of Assistance Standby Assistance [place] March Water Level Chest Level Level of Assistance Verbal Cues barrell walk Water Level Chest Level Level of Assistance Standby Assistance,Verbal Cues march Water Level Chest Level Level of Assistance Standby Assistance,Verbal Cues Backwards Water Level Chest Level Level of Assistance Standby Assistance,Verbal Cues Sideways Water Level Chest Level Level of Assistance Standby Assistance [place] Water Level Chest Level Level of Assistance Standby Assistance Lower Extremity Stretches Quads Body Position Standing Water Level Chest Level Equipment Small Noodle Reps/Duration 2 x45 sec HS Body Position Standing Water Level Chest Level Equipment Small Noodle Reps/Duration 2 x45 sec Spinal Exercises Wonderboard Body Position Sitting Equipment Ankle Weight- 2.5# Reps/Duration 8 min Comments stationary and forward/ backward movement 1 Details U.E. Horiz AB/AD, shoulder flexion Body Position Standing Water Level Chest Level Comments With core stabilization emphasis, bilateral and unilateral Balance step up/down lg box Body Position Standing Water Level Waist Level Reps/Duration all directions, both LEs leading Comments occasional hh on wall [place] Activities [place] Activities Bicycle,Bicycle Backwards, Cross Country,Running,Hip Abduction/Adduction,Sit Kicks Equipment Lg belt Duration 14 PT-OP-T Assessment and Plan Start: 08/15/19 08:03 Freq: Status: Active Protocol: Document 02/29/20 09:52 [facility] (Rec: 02/29/20 10:39 [facility]AK [id number]) Physical Therapy Assessment Goals Four Impairment activity tolerance Assisted Goal (LTG) Patient to tolerate 45 minute aquatic exercise program without increase in pain or excess fatigue and be independent in aquatic ex program for halfway fitness and pain management. 01/23/20: aquatic exercise on hold due to Covid19, pool still closed, no aquatic therapy 02/27/20: pool still closed LTG Duration 04/22/20 Three Impairment Gait: limited to household, very short distance community (<250') Short Term Goal (STG) Patient able to walk 500' with 4WW before requiring a rest break 01/23/20: required rest break today after 100' with hurry- cane (forgot walker) 02/27/20: able to slowly ambulate 200' before requiring rest STG Duration 03/16/20 Yarn Texture Machine Operator Goal (LTG) Patient able to tolerate 10-15 min of standing and walking to allow her to do brief shopping trips before needing to sit down for rest break LTG Duration 04/22/20 Two Impairment weakness bilateral LE's Short Term Goal (STG) Patient to be independent and compliant with HEP to include use of a video for increased compliance. 01/23/20: has not yet been able due to broken VCR and computer problems 02/27/20: goal met STG Duration 03/16/20 Yarn Texture Machine Operator Goal (LTG) Patient to demonstrate improvement in LE strength by 1 grade throughout to improve her functional mobility and safety 01/23/20: per MMT today, patient weaker in hips and core as well as ankle dorsiflexion 02/27/20: goal progress LTG Duration 04/22/20 One Impairment balance dysfunction with multiple falls, high fall risk category Short Term Goal (STG) No reported falls 01/23/20: no falls since last seen 02/27/20: no reported falls STG Duration goal met Assisted Goal (LTG) Patient to demonstrate a improvement in her score on Tinettti gait and balance assessment from high fall risk to no greater than moderate fall risk 01/23/20: patient continues to be in high risk category 02/27/20: still high risk LTG Duration 04/22/20 Eight Impairment weakness left shoulder Yarn Texture Machine Operator Goal (LTG) Patient left UE strength at least 4+/5 01/23/20: no change in patient UE strength 02/27/20: goal progress LTG Duration 04/22/20 Seven Impairment activity tolerance Yarn Texture Machine Operator Goal (LTG) Patient able to reach overhead and behind her back with minimal to no pain for purposes of ADL's and usual activities 02/27/20: goal progress, with pulleys GH flexion now WFL, unable to achieve actively yet . LTG Duration 04/22/20 Assessment Summary Assessment Continued ultrasound and soft tissue mobility following ther ex today. Flexion WNL with pulleys, will need to progress to furthre AAROM and AROM ex. ER left shoulder remains limited. Standing tolerance limited by pain, balance, weakness. Physical Therapy Plan Frequency and Duration Frequency of Treatment 2x/wk Duration of Treatment 12 wks Plan of Care Start Date 01/23/20 Plan of Care End Date 04/22/20 Therapeutic Interventions Therapeutic Interventions Aquatic Therapy,Balance Training,Gait Training,Home Exercise Program,Manual Therapy,Neuromuscular Re- education,Patient/Caregiver Education,Self-Care/Home Management,Therapeutic Activities,Therapeutic Exercises Next Visit Focus/Plan Next Note Type Treatment Note Next Visit Plan wall slide should flex, MWM for shoulder ER, closed chain LE strengthening and balance training.
--- NOTE | 2020-03-19 16:58 | PT.OTN ---
Current Diagnoses Other abnormalities of gait and mobility (03/19/20) Physical Therapy Treatment Note PT-OP-A Visit Information Start: 08/15/19 08:03 Freq: Status: Active Protocol: Document 03/19/20 14:32 SAK (Rec: 03/19/20 15:20 SAK [id number]) Out-Patient Physical Therapy Visit Information Visit Information Visit Type Treatment Note Visit Start Time 14:30 Visit Stop Time 15:25 Total Visit Minutes 55 Visit Number 22 PT-OP-B Current Condition Start: 08/15/19 08:03 Freq: Status: Active Protocol: Document 08/15/19 08:11 SAK (Rec: 08/15/19 08:50 SAK [id number]) Current Condition History of Current Condition Onset Date 10+ years Current Complaints poor balance with multiple falls History of Current Condition Reports long history of gradual decrease in strength and balance with multiple falls, legs give out, UEs not able to hold self up. Poor activity level with limited ability to stand or walk due to weakness and LBP. Has had a hard time getting out of house. Removal of parathyroid gland earlier this year has resulted in increase in weight . 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 Wears orthotics majority of the time. Uses cane and 4WW. Going to be measured for custom compression stockings at [facility] pharmacy. Uses heat for LBP, arthritis Tylenol. Prior Treatments and Tests H/O foot surgery History of aortic valve replacement History of hip replacement History of knee replacement History of knee replacement Status post hysterectomy COPD (chronic obstructive pulmonary disease) GERD (gastroesophageal reflux disease) Hyperlipidemia Hypertension Morbid obesity Neuropathy Treatment Goals Patient/Caregiver Goals Hoping to gain more strength, be able to tolerate standing and walking, better balance. 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 Can ease the pain some with Alleve and heating pad. The pain makes it difficult to sleep. PT-OP-H Neuro Start: 08/15/19 08:03 Freq: Status: Active Protocol: Document 08/15/19 08:11 SAK (Rec: 08/15/19 08:50 SAK [id number]) Sensation Evaluation Gross Sensation Gross Sensation Left LE Impaired,Right LE Impaired Sensation Description Paresthesia,Numbness PT-OP-K Range of Motion Start: 08/15/19 08:03 Freq: Status: Active Protocol: Document 08/15/19 08:11 SAK (Rec: 08/15/19 08:50 [facility] [id number]) Lumbar Spine Range of Motion Lumbar Spine Active ROM Limitations Pain Hip Goniometric Range of Motion Hip gabby Hip ROM WFL Yes Knee Goniometric Range of Motion Knee ROM Limitations Knee ROM Limitations Pain Comments genu valgus right Ankle and Foot Goniometric Range of Motion Ankle and Foot gbaby Dorsiflexion with Knee Flexed 0 PT-OP-M Strength Start: 08/15/19 08:03 Freq: Status: Active Protocol: Document 08/15/19 08:11 SAK (Rec: 08/15/19 08:50 [facility] [id number]) Trunk Strength Trunk Manual Muscle Testing Flexion 2- Poor- Extension 2- Poor- Hip Strength Hip Manual Muscle Testing gabby Flexion (L2) 3+ Fair+ Extension (S1) 2 Poor Abduction 2 Poor Adduction 2 Poor External Rotation 2- Poor- Internal Rotation 2- Poor- Knee Strength Knee Manual Muscle Testing gabby Flexion (S2) 4- Good- Extension (L3) 4- Good- Ankle/Foot Strength Ankle and Foot Manual Muscle Testing gabby Dorsiflexion (L4) 3+ Fair+ Plantarflexion (S1) 4- Good- PT-OP-Q Treatments Start: 08/15/19 08:03 Freq: Status: Active Protocol: Document 03/19/20 14:32 SAK (Rec: 03/19/20 15:20 SAK [id number]) Cardio Equipment Recumbent Stepper (Sci-Fit) Duration (Minutes) 10 Resistance 2.2 Seat Position 13 Manual Therapy Treatment Soft Tissue Mobilization 1 Body Location upper traps, periscapular region, RC, biceps left. Manual Techniques 3 Type right piriformis, glut med Body Position Sidelying Comments moderate depth Self-Care/Home Management Treatment Education Patient Education Pain Management Other Education ball for self-massage PT-OP-R Modalities Start: 08/15/19 08:03 Freq: Status: Active Protocol: Document 03/19/20 14:32 SAK (Rec: 03/19/20 16:58 SAK [id number]) Hot Pack/Cold Pack Treatment Hot Pack Location right hip, left shoulder Patient Position Sitting Comments chair PT-OP-S Aquatic Treatment Start: 08/15/19 08:03 Freq: Status: Active Protocol: Document 10/25/19 10:15 LJ (Rec: 10/25/19 13:20 LJ [id number]) Aquatics Treatment Pool Entry/Exit Pool Entry/Exit Method Stairs Assistance Standby Assistance Water Walking shallow water jogging Water Level Chest Level Level of Assistance Standby Assistance Comments 2 laps Lunge Walk Water Level Chest Level Level of Assistance Standby Assistance [place] March Water Level Chest Level Level of Assistance Verbal Cues barrell walk Water Level Chest Level Level of Assistance Standby Assistance,Verbal Cues march Water Level Chest Level Level of Assistance Standby Assistance,Verbal Cues Backwards Water Level Chest Level Level of Assistance Standby Assistance,Verbal Cues Sideways Water Level Chest Level Level of Assistance Standby Assistance [place] Water Level Chest Level Level of Assistance Standby Assistance Lower Extremity Stretches Quads Body Position Standing Water Level Chest Level Equipment Small Noodle Reps/Duration 2 x45 sec HS Body Position Standing Water Level Chest Level Equipment Small Noodle Reps/Duration 2 x45 sec Spinal Exercises Wonderboard Body Position Sitting Equipment Ankle Weight- 2.5# Reps/Duration 8 min Comments stationary and forward/ backward movement 1 Details U.E. Horiz AB/AD, shoulder flexion Body Position Standing Water Level Chest Level Comments With core stabilization emphasis, bilateral and unilateral Balance step up/down lg box Body Position Standing Water Level Waist Level Reps/Duration all directions, both LEs leading Comments occasional hh on wall [place] Activities [place] Activities Bicycle,Bicycle Backwards, Cross Country,Running,Hip Abduction/Adduction,Sit Kicks Equipment Lg belt Duration 14 PT-OP-T Assessment and Plan Start: 08/15/19 08:03 Freq: Status: Active Protocol: Document 03/19/20 14:32 SAK (Rec: 03/19/20 15:20 SAK [id number]) Physical Therapy Assessment Goals Four Impairment activity tolerance Senior Care Goal (LTG) Patient to tolerate 45 minute aquatic exercise program without increase in pain or excess fatigue and be independent in aquatic ex program for senior living fitness and pain management. 01/23/20: aquatic exercise on hold due to Covid19, pool still closed, no aquatic therapy 02/27/20: pool still closed LTG Duration 04/22/20 Three Impairment Gait: limited to household, very short distance community (<250') Short Term Goal (STG) Patient able to walk 500' with 4WW before requiring a rest break 01/23/20: required rest break today after 100' with hurry- cane (forgot walker) 02/27/20: able to slowly ambulate 200' before requiring rest STG Duration 03/16/20 Senior Care Goal (LTG) Patient able to tolerate 10-15 min of standing and walking to allow her to do brief shopping trips before needing to sit down for rest break LTG Duration 04/22/20 Two Impairment weakness bilateral LE's Short Term Goal (STG) Patient to be independent and compliant with HEP to include use of a video for increased compliance. 01/23/20: has not yet been able due to broken VCR and computer problems 02/27/20: goal met STG Duration 03/16/20 Senior Care Goal (LTG) Patient to demonstrate improvement in LE strength by 1 grade throughout to improve her functional mobility and safety 01/23/20: per MMT today, patient weaker in hips and core as well as ankle dorsiflexion 02/27/20: goal progress LTG Duration 04/22/20 One Impairment balance dysfunction with multiple falls, high fall risk category Short Term Goal (STG) No reported falls 01/23/20: no falls since last seen 02/27/20: no reported falls STG Duration goal met [employer] Lead Goal (LTG) Patient to demonstrate a improvement in her score on Tinettti gait and balance assessment from high fall risk to no greater than moderate fall risk 01/23/20: patient continues to be in high risk category 02/27/20: still high risk LTG Duration 04/22/20 Eight Impairment weakness left shoulder Senior Care Goal (LTG) Patient left UE strength at least 4+/5 01/23/20: no change in patient UE strength 02/27/20: goal progress LTG Duration 04/22/20 Seven Impairment activity tolerance [employer] Lead Goal (LTG) Patient able to reach overhead and behind her back with minimal to no pain for purposes of ADL's and usual activities 02/27/20: goal progress, with pulleys GH flexion now WFL, unable to achieve actively yet . LTG Duration 04/22/20 Assessment Summary Assessment Patient has muscle tightness throughout her piriformis and glut med on right. Scar tissue at bladder stimulator site stiff but unsure if contributory to patient's pain . Highly encouraged her to return to doing aquatic exercise; pool is open, though aquatic therapy not currently available. She is able to do some aquatic exercises independently. Physical Therapy Plan Frequency and Duration Frequency of Treatment 2x/wk Duration of Treatment 12 wks Plan of Care Start Date 01/23/20 Plan of Care End Date 04/22/20 Therapeutic Interventions Therapeutic Interventions Aquatic Therapy,Balance Training,Gait Training,Home Exercise Program,Manual Therapy,Neuromuscular Re- education,Patient/Caregiver Education,Self-Care/Home Management,Therapeutic Activities,Therapeutic Exercises Next Visit Focus/Plan Next Note Type Treatment Note Next Visit Plan Evaluate response to soft tissue mobilization right buttock. Add wall slide should flex, MWM for shoulder ER. Progress closed chain LE strengthening and balance training as tolerated.
--- NOTE | 2020-03-26 16:52 | PT.OTN ---
Current Diagnoses Other abnormalities of gait and mobility (03/26/20) Physical Therapy Treatment Note PT-OP-A Visit Information Start: 08/15/19 08:03 Freq: Status: Active Protocol: Document 03/26/20 16:44 [facility] (Rec: 03/26/20 16:52 [facility] [id number]) Out-Patient Physical Therapy Visit Information Visit Information Visit Type Treatment Note Visit Start Time 13:00 Visit Stop Time 13:58 Total Visit Minutes 58 Visit Number 23 PT-OP-B Current Condition Start: 08/15/19 08:03 Freq: Status: Active Protocol: Document 08/15/19 08:11 SAK (Rec: 08/15/19 08:50 SAK [id number]) Current Condition History of Current Condition Onset Date 10+ years Current Complaints poor balance with multiple falls History of Current Condition Reports long history of gradual decrease in strength and balance with multiple falls, legs give out, UEs not able to hold self up. Poor activity level with limited ability to stand or walk due to weakness and LBP. Has had a hard time getting out of house. Removal of parathyroid gland earlier this year has resulted in increase in weight . 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 Wears orthotics majority of the time. Uses cane and 4WW. Going to be measured for custom compression stockings at [facility] pharmacy. Uses heat for LBP, arthritis Tylenol. Prior Treatments and Tests H/O foot surgery History of aortic valve replacement History of hip replacement History of knee replacement History of knee replacement Status post hysterectomy COPD (chronic obstructive pulmonary disease) GERD (gastroesophageal reflux disease) Hyperlipidemia Hypertension Morbid obesity Neuropathy Treatment Goals Patient/Caregiver Goals Hoping to gain more strength, be able to tolerate standing and walking, better balance. 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 Would like to work on both shoulder and hip with manual treatment today as feels most beneficial , trying to be more compliant to HEP at home. PT-OP-H Neuro Start: 08/15/19 08:03 Freq: Status: Active Protocol: Document 08/15/19 08:11 SAK (Rec: 08/15/19 08:50 SAK [id number]) Sensation Evaluation Gross Sensation Gross Sensation Left LE Impaired,Right LE Impaired Sensation Description Paresthesia,Numbness PT-OP-K Range of Motion Start: 08/15/19 08:03 Freq: Status: Active Protocol: Document 08/15/19 08:11 SAK (Rec: 08/15/19 08:50 [facility] [id number]) Lumbar Spine Range of Motion Lumbar Spine Active ROM Limitations Pain Hip Goniometric Range of Motion Hip gabby Hip ROM WFL Yes Knee Goniometric Range of Motion Knee ROM Limitations Knee ROM Limitations Pain Comments genu valgus right Ankle and Foot Goniometric Range of Motion Ankle and Foot gabby Dorsiflexion with Knee Flexed 0 PT-OP-M Strength Start: 08/15/19 08:03 Freq: Status: Active Protocol: Document 08/15/19 08:11 SAK (Rec: 08/15/19 08:50 [facility] [id number]) Trunk Strength Trunk Manual Muscle Testing Flexion 2- Poor- Extension 2- Poor- Hip Strength Hip Manual Muscle Testing gabby Flexion (L2) 3+ Fair+ Extension (S1) 2 Poor Abduction 2 Poor Adduction 2 Poor External Rotation 2- Poor- Internal Rotation 2- Poor- Knee Strength Knee Manual Muscle Testing gabby Flexion (S2) 4- Good- Extension (L3) 4- Good- Ankle/Foot Strength Ankle and Foot Manual Muscle Testing gabby Dorsiflexion (L4) 3+ Fair+ Plantarflexion (S1) 4- Good- PT-OP-Q Treatments Start: 08/15/19 08:03 Freq: Status: Active Protocol: Document 03/26/20 16:44 SAK (Rec: 03/26/20 16:52 SAK [id number]) Cardio Equipment Recumbent Stepper (Sci-Fit) Duration (Minutes) 10 Resistance 2.5 Seat Position 13 Manual Therapy Treatment Soft Tissue Mobilization 2 Body Location right piriformis, IT band Mobilization Type Myofascial Release,Rolling, Strumming,Sustained Pressure Intensity/Depth Moderate Body Position Sidelying 1 Body Location upper traps, periscapular region, RC, biceps left. Mobilization Type Myofascial Release,Rolling, Strumming,Sustained Pressure Intensity/Depth Moderate Body Position Sidelying PT-OP-R Modalities Start: 08/15/19 08:03 Freq: Status: Active Protocol: Document 03/26/20 16:44 SAK (Rec: 03/26/20 16:52 SAK [id number]) Hot Pack/Cold Pack Treatment Hot Pack Location right hip, left shoulder Patient Position Sitting Comments chair PT-OP-S Aquatic Treatment Start: 08/15/19 08:03 Freq: Status: Active Protocol: Document 10/25/19 10:15 LJ (Rec: 10/25/19 13:20 LJ [id number]) Aquatics Treatment Pool Entry/Exit Pool Entry/Exit Method Stairs Assistance Standby Assistance Water Walking shallow water jogging Water Level Chest Level Level of Assistance Standby Assistance Comments 2 laps Lunge Walk Water Level Chest Level Level of Assistance Standby Assistance [place] March Water Level Chest Level Level of Assistance Verbal Cues barrell walk Water Level Chest Level Level of Assistance Standby Assistance,Verbal Cues march Water Level Chest Level Level of Assistance Standby Assistance,Verbal Cues Backwards Water Level Chest Level Level of Assistance Standby Assistance,Verbal Cues Sideways Water Level Chest Level Level of Assistance Standby Assistance [place] Water Level Chest Level Level of Assistance Standby Assistance Lower Extremity Stretches Quads Body Position Standing Water Level Chest Level Equipment Small Noodle Reps/Duration 2 x45 sec HS Body Position Standing Water Level Chest Level Equipment Small Noodle Reps/Duration 2 x45 sec Spinal Exercises Wonderboard Body Position Sitting Equipment Ankle Weight- 2.5# Reps/Duration 8 min Comments stationary and forward/ backward movement 1 Details U.E. Horiz AB/AD, shoulder flexion Body Position Standing Water Level Chest Level Comments With core stabilization emphasis, bilateral and unilateral Balance step up/down lg box Body Position Standing Water Level Waist Level Reps/Duration all directions, both LEs leading Comments occasional hh on wall [place] Activities [place] Activities Bicycle,Bicycle Backwards, Cross Country,Running,Hip Abduction/Adduction,Sit Kicks Equipment Lg belt Duration 14 PT-OP-T Assessment and Plan Start: 08/15/19 08:03 Freq: Status: Active Protocol: Document 03/26/20 16:44 [facility] (Rec: 03/26/20 16:52 [facility] [id number]) Physical Therapy Assessment Goals Four Impairment activity tolerance [employer] Goal (LTG) Patient to tolerate 45 minute aquatic exercise program without increase in pain or excess fatigue and be independent in aquatic ex program for fci fitness and pain management. 01/23/20: aquatic exercise on hold due to Covid19, pool still closed, no aquatic therapy 02/27/20: pool still closed LTG Duration 04/22/20 Three Impairment Gait: limited to household, very short distance community (<250') Short Term Goal (STG) Patient able to walk 500' with 4WW before requiring a rest break 01/23/20: required rest break today after 100' with hurry- cane (forgot walker) 02/27/20: able to slowly ambulate 200' before requiring rest STG Duration 03/16/20 Correction Goal (LTG) Patient able to tolerate 10-15 min of standing and walking to allow her to do brief shopping trips before needing to sit down for rest break LTG Duration 04/22/20 Two Impairment weakness bilateral LE's Short Term Goal (STG) Patient to be independent and compliant with HEP to include use of a video for increased compliance. 01/23/20: has not yet been able due to broken VCR and computer problems 02/27/20: goal met STG Duration 03/16/20 [employer] Goal (LTG) Patient to demonstrate improvement in LE strength by 1 grade throughout to improve her functional mobility and safety 01/23/20: per MMT today, patient weaker in hips and core as well as ankle dorsiflexion 02/27/20: goal progress LTG Duration 04/22/20 One Impairment balance dysfunction with multiple falls, high fall risk category Short Term Goal (STG) No reported falls 01/23/20: no falls since last seen 02/27/20: no reported falls STG Duration goal met Correction Goal (LTG) Patient to demonstrate a improvement in her score on Tinettti gait and balance assessment from high fall risk to no greater than moderate fall risk 01/23/20: patient continues to be in high risk category 02/27/20: still high risk LTG Duration 04/22/20 Eight Impairment weakness left shoulder Correction Goal (LTG) Patient left UE strength at least 4+/5 01/23/20: no change in patient UE strength 02/27/20: goal progress LTG Duration 04/22/20 Seven Impairment activity tolerance Correction Goal (LTG) Patient able to reach overhead and behind her back with minimal to no pain for purposes of ADL's and usual activities 02/27/20: goal progress, with pulleys GH flexion now WFL, unable to achieve actively yet . LTG Duration 04/22/20 Physical Therapy Plan Frequency and Duration Frequency of Treatment 2x/wk Duration of Treatment 12 wks Plan of Care Start Date 01/23/20 Plan of Care End Date 04/22/20 Therapeutic Interventions Therapeutic Interventions Aquatic Therapy,Balance Training,Gait Training,Home Exercise Program,Manual Therapy,Neuromuscular Re- education,Patient/Caregiver Education,Self-Care/Home Management,Therapeutic Activities,Therapeutic Exercises
--- NOTE | 2020-04-11 17:02 | PT.OTN ---
Current Diagnoses Other abnormalities of gait and mobility (04/11/20) Physical Therapy Treatment Note PT-OP-A Visit Information Start: 08/15/19 08:03 Freq: Status: Active Protocol: Document 04/11/20 13:44 SAK (Rec: 04/11/20 14:34 SAK [id number]) Out-Patient Physical Therapy Visit Information Visit Information Visit Type Treatment Note Visit Start Time 13:48 Visit Stop Time 14:45 Total Visit Minutes 57 Visit Number 24 PT-OP-B Current Condition Start: 08/15/19 08:03 Freq: Status: Active Protocol: Document 08/15/19 08:11 SAK (Rec: 08/15/19 08:50 SAK [id number]) Current Condition History of Current Condition Onset Date 10+ years Current Complaints poor balance with multiple falls History of Current Condition Reports long history of gradual decrease in strength and balance with multiple falls, legs give out, UEs not able to hold self up. Poor activity level with limited ability to stand or walk due to weakness and LBP. Has had a hard time getting out of house. Removal of parathyroid gland earlier this year has resulted in increase in weight . 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 Wears orthotics majority of the time. Uses cane and 4WW. Going to be measured for custom compression stockings at [facility], [place]. Uses heat for LBP, arthritis Tylenol. Prior Treatments and Tests H/O foot surgery History of aortic valve replacement History of hip replacement History of knee replacement History of knee replacement Status post hysterectomy COPD (chronic obstructive pulmonary disease) GERD (gastroesophageal reflux disease) Hyperlipidemia Hypertension Morbid obesity Neuropathy Treatment Goals Patient/Caregiver Goals Hoping to gain more strength, be able to tolerate standing and walking, better balance. 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 States left shoulder a little better. Was supposed to see mds nurse but it was cancelled, postponed until June 12. PT-OP-H Neuro Start: 08/15/19 08:03 Freq: Status: Active Protocol: Document 08/15/19 08:11 SAK (Rec: 08/15/19 08:50 SAK [id number]) Sensation Evaluation Gross Sensation Gross Sensation Left LE Impaired,Right LE Impaired Sensation Description Paresthesia,Numbness PT-OP-K Range of Motion Start: 08/15/19 08:03 Freq: Status: Active Protocol: Document 08/15/19 08:11 SAK (Rec: 08/15/19 08:50 [facility] [id number]) Lumbar Spine Range of Motion Lumbar Spine Active ROM Limitations Pain Hip Goniometric Range of Motion Hip gabby Hip ROM WFL Yes Knee Goniometric Range of Motion Knee ROM Limitations Knee ROM Limitations Pain Comments genu valgus right Ankle and Foot Goniometric Range of Motion Ankle and Foot gabby Dorsiflexion with Knee Flexed 0 PT-OP-M Strength Start: 08/15/19 08:03 Freq: Status: Active Protocol: Document 08/15/19 08:11 SAK (Rec: 08/15/19 08:50 [facility] [id number]) Trunk Strength Trunk Manual Muscle Testing Flexion 2- Poor- Extension 2- Poor- Hip Strength Hip Manual Muscle Testing gabby Flexion (L2) 3+ Fair+ Extension (S1) 2 Poor Abduction 2 Poor Adduction 2 Poor External Rotation 2- Poor- Internal Rotation 2- Poor- Knee Strength Knee Manual Muscle Testing gabby Flexion (S2) 4- Good- Extension (L3) 4- Good- Ankle/Foot Strength Ankle and Foot Manual Muscle Testing gabby Dorsiflexion (L4) 3+ Fair+ Plantarflexion (S1) 4- Good- PT-OP-Q Treatments Start: 08/15/19 08:03 Freq: Status: Active Protocol: Document 04/11/20 13:44 SAK (Rec: 04/11/20 14:34 SAK [id number]) Cardio Equipment Recumbent Stepper (Sci-Fit) Duration (Minutes) 10 Resistance 2.5 Seat Position 13 Therapeutic Exercises Supine Exercises 2 Supine Exercise Name AAROM left shoulder Side left Reps/Minutes 2 min Sitting Exercises 3 Sitting Exercise Name ball squeeze Reps/Minutes 10x Manual Therapy Treatment Soft Tissue Mobilization 2 Body Location right piriformis, IT band Mobilization Type Myofascial Release,Rolling, Strumming,Sustained Pressure Intensity/Depth Moderate Body Position Sidelying 1 Body Location upper traps, periscapular region, RC, biceps left. Mobilization Type Myofascial Release,Rolling, Strumming,Sustained Pressure Intensity/Depth Moderate Body Position Sidelying Manual Techniques 4 Type MWM for left shoulder ER Self-Care/Home Management Treatment Education Patient Education Home Exercise Program,Pain Management Other Education Need for consistent exercise. Consider going back to the pool for aquatic exercise as that is the best tolerated. PT-OP-R Modalities Start: 08/15/19 08:03 Freq: Status: Active Protocol: Document 04/11/20 13:44 SAK (Rec: 04/11/20 14:34 SAK [id number]) Hot Pack/Cold Pack Treatment Hot Pack Location right hip, left shoulder Patient Position Sitting Comments chair Iontophoresis Treatment Left Shoulder Treatment Medication Dexamethasone (-) Medication Amount (mL) (ml) 4 Medication Dosage 1 PT-OP-S Aquatic Treatment Start: 08/15/19 08:03 Freq: Status: Active Protocol: Document 10/25/19 10:15 KAITLIN (Rec: 10/25/19 13:20 LJ [id number]) Aquatics Treatment Pool Entry/Exit Pool Entry/Exit Method Stairs Assistance Standby Assistance Water Walking shallow water jogging Water Level Chest Level Level of Assistance Standby Assistance Comments 2 laps Lunge Walk Water Level Chest Level Level of Assistance Standby Assistance [place] March Water Level Chest Level Level of Assistance Verbal Cues barrell walk Water Level Chest Level Level of Assistance Standby Assistance,Verbal Cues march Water Level Chest Level Level of Assistance Standby Assistance,Verbal Cues Backwards Water Level Chest Level Level of Assistance Standby Assistance,Verbal Cues Sideways Water Level Chest Level Level of Assistance Standby Assistance [place] Water Level Chest Level Level of Assistance Standby Assistance Lower Extremity Stretches Quads Body Position Standing Water Level Chest Level Equipment Small Noodle Reps/Duration 2 x45 sec HS Body Position Standing Water Level Chest Level Equipment Small Noodle Reps/Duration 2 x45 sec Spinal Exercises Wonderboard Body Position Sitting Equipment Ankle Weight- 2.5# Reps/Duration 8 min Comments stationary and forward/ backward movement 1 Details U.E. Horiz AB/AD, shoulder flexion Body Position Standing Water Level Chest Level Comments With core stabilization emphasis, bilateral and unilateral Balance step up/down lg box Body Position Standing Water Level Waist Level Reps/Duration all directions, both LEs leading Comments occasional hh on wall [place] Activities [place] Activities Bicycle,Bicycle Backwards, Cross Country,Running,Hip Abduction/Adduction,Sit Kicks Equipment Lg belt Duration 14 PT-OP-T Assessment and Plan Start: 08/15/19 08:03 Freq: Status: Active Protocol: Document 04/11/20 13:44 SAK (Rec: 04/11/20 14:34 SAK [id number]) Physical Therapy Assessment Goals Four Impairment activity tolerance Movement Assembly Final Inspector Goal (LTG) Patient to tolerate 45 minute aquatic exercise program without increase in pain or excess fatigue and be independent in aquatic ex program for jail fitness and pain management. 01/23/20: aquatic exercise on hold due to Covid19, pool still closed, no aquatic therapy 02/27/20: pool still closed LTG Duration 04/22/20 Three Impairment Gait: limited to household, very short distance community (<250') Short Term Goal (STG) Patient able to walk 500' with 4WW before requiring a rest break 01/23/20: required rest break today after 100' with hurry- cane (forgot walker) 02/27/20: able to slowly ambulate 200' before requiring rest STG Duration 03/16/20 Movement Assembly Final Inspector Goal (LTG) Patient able to tolerate 10-15 min of standing and walking to allow her to do brief shopping trips before needing to sit down for rest break LTG Duration 04/22/20 Two Impairment weakness bilateral LE's Short Term Goal (STG) Patient to be independent and compliant with HEP to include use of a video for increased compliance. 01/23/20: has not yet been able due to broken VCR and computer problems 02/27/20: goal met STG Duration 03/16/20 Senior Care Goal (LTG) Patient to demonstrate improvement in LE strength by 1 grade throughout to improve her functional mobility and safety 01/23/20: per MMT today, patient weaker in hips and core as well as ankle dorsiflexion 02/27/20: goal progress LTG Duration 04/22/20 One Impairment balance dysfunction with multiple falls, high fall risk category Short Term Goal (STG) No reported falls 01/23/20: no falls since last seen 02/27/20: no reported falls STG Duration goal met Senior Care Goal (LTG) Patient to demonstrate a improvement in her score on Tinettti gait and balance assessment from high fall risk to no greater than moderate fall risk 01/23/20: patient continues to be in high risk category 02/27/20: still high risk LTG Duration 04/22/20 Eight Impairment weakness left shoulder Senior Care Goal (LTG) Patient left UE strength at least 4+/5 01/23/20: no change in patient UE strength 02/27/20: goal progress LTG Duration 04/22/20 Seven Impairment activity tolerance Senior Care Goal (LTG) Patient able to reach overhead and behind her back with minimal to no pain for purposes of ADL's and usual activities 02/27/20: goal progress, with pulleys GH flexion now WFL, unable to achieve actively yet . LTG Duration 04/22/20 Physical Therapy Plan Frequency and Duration Frequency of Treatment 2x/wk Duration of Treatment 12 wks Plan of Care Start Date 01/23/20 Plan of Care End Date 04/22/20 Therapeutic Interventions Therapeutic Interventions Aquatic Therapy,Balance Training,Gait Training,Home Exercise Program,Manual Therapy,Neuromuscular Re- education,Patient/Caregiver Education,Self-Care/Home Management,Therapeutic Activities,Therapeutic Exercises Next Visit Focus/Plan Next Note Type Treatment Note
--- NOTE | 2020-04-16 16:48 | PT.OTN ---
Current Diagnoses Other abnormalities of gait and mobility (04/16/20) Physical Therapy Treatment Note PT-OP-A Visit Information Start: 08/15/19 08:03 Freq: Status: Active Protocol: Document 04/16/20 13:00 SAK (Rec: 04/16/20 13:45 SAK [id number]) Out-Patient Physical Therapy Visit Information Visit Information Visit Type Treatment Note Visit Note Patient 10 min late Visit Start Time 13:10 Visit Stop Time 13:45 Total Visit Minutes 35 Visit Number 25 PT-OP-B Current Condition Start: 08/15/19 08:03 Freq: Status: Active Protocol: Document 08/15/19 08:11 SAK (Rec: 08/15/19 08:50 SAK [id number]) Current Condition History of Current Condition Onset Date 10+ years Current Complaints poor balance with multiple falls History of Current Condition Reports long history of gradual decrease in strength and balance with multiple falls, legs give out, UEs not able to hold self up. Poor activity level with limited ability to stand or walk due to weakness and LBP. Has had a hard time getting out of house. Removal of parathyroid gland earlier this year has resulted in increase in weight . 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 Wears orthotics majority of the time. Uses cane and 4WW. Going to be measured for custom compression stockings at [facility] pharmacy. Uses heat for LBP, arthritis Tylenol. Prior Treatments and Tests H/O foot surgery History of aortic valve replacement History of hip replacement History of knee replacement History of knee replacement Status post hysterectomy COPD (chronic obstructive pulmonary disease) GERD (gastroesophageal reflux disease) Hyperlipidemia Hypertension Morbid obesity Neuropathy Treatment Goals Patient/Caregiver Goals Hoping to gain more strength, be able to tolerate standing and walking, better balance. 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 Also felt iontophoresis helpful for her left shoulder. Time limited due to having some work done on her home. PT-OP-H Neuro Start: 08/15/19 08:03 Freq: Status: Active Protocol: Document 08/15/19 08:11 SAK (Rec: 08/15/19 08:50 SAK [id number]) Sensation Evaluation Gross Sensation Gross Sensation Left LE Impaired,Right LE Impaired Sensation Description Paresthesia,Numbness PT-OP-K Range of Motion Start: 08/15/19 08:03 Freq: Status: Active Protocol: Document 08/15/19 08:11 SAK (Rec: 08/15/19 08:50 [facility] [id number]) Lumbar Spine Range of Motion Lumbar Spine Active ROM Limitations Pain Hip Goniometric Range of Motion Hip gabby Hip ROM WFL Yes Knee Goniometric Range of Motion Knee ROM Limitations Knee ROM Limitations Pain Comments genu valgus right Ankle and Foot Goniometric Range of Motion Ankle and Foot gabby Dorsiflexion with Knee Flexed 0 PT-OP-M Strength Start: 08/15/19 08:03 Freq: Status: Active Protocol: Document 08/15/19 08:11 [facility] (Rec: 08/15/19 08:50 SAK [id number]) Trunk Strength Trunk Manual Muscle Testing Flexion 2- Poor- Extension 2- Poor- Hip Strength Hip Manual Muscle Testing gabby Flexion (L2) 3+ Fair+ Extension (S1) 2 Poor Abduction 2 Poor Adduction 2 Poor External Rotation 2- Poor- Internal Rotation 2- Poor- Knee Strength Knee Manual Muscle Testing gabby Flexion (S2) 4- Good- Extension (L3) 4- Good- Ankle/Foot Strength Ankle and Foot Manual Muscle Testing gabby Dorsiflexion (L4) 3+ Fair+ Plantarflexion (S1) 4- Good- PT-OP-Q Treatments Start: 08/15/19 08:03 Freq: Status: Active Protocol: Document 04/16/20 13:00 SAK (Rec: 04/16/20 13:45 SAK [id number]) Manual Therapy Treatment Soft Tissue Mobilization 2 Body Location right piriformis, IT band Mobilization Type Myofascial Release,Rolling, Strumming,Sustained Pressure Intensity/Depth Moderate Body Position Sidelying 1 Body Location upper traps, periscapular region, RC, biceps left. Mobilization Type Myofascial Release,Rolling, Strumming,Sustained Pressure Intensity/Depth Moderate Body Position Sidelying PT-OP-R Modalities Start: 08/15/19 08:03 Freq: Status: Active Protocol: Document 04/11/20 13:44 SAK (Rec: 04/11/20 14:34 SAK [id number]) Hot Pack/Cold Pack Treatment Hot Pack Location right hip, left shoulder Patient Position Sitting Comments chair Iontophoresis Treatment Left Shoulder Treatment Medication Dexamethasone (-) Medication Amount (mL) (ml) 4 Medication Dosage 1 PT-OP-S Aquatic Treatment Start: 08/15/19 08:03 Freq: Status: Active Protocol: Document 10/25/19 10:15 LJ (Rec: 10/25/19 13:20 LJ [id number]) Aquatics Treatment Pool Entry/Exit Pool Entry/Exit Method Stairs Assistance Standby Assistance Water Walking shallow water jogging Water Level Chest Level Level of Assistance Standby Assistance Comments 2 laps Lunge Walk Water Level Chest Level Level of Assistance Standby Assistance [place] March Water Level Chest Level Level of Assistance Verbal Cues barrell walk Water Level Chest Level Level of Assistance Standby Assistance,Verbal Cues march Water Level Chest Level Level of Assistance Standby Assistance,Verbal Cues Backwards Water Level Chest Level Level of Assistance Standby Assistance,Verbal Cues Sideways Water Level Chest Level Level of Assistance Standby Assistance [place] Water Level Chest Level Level of Assistance Standby Assistance Lower Extremity Stretches Quads Body Position Standing Water Level Chest Level Equipment Small Noodle Reps/Duration 2 x45 sec HS Body Position Standing Water Level Chest Level Equipment Small Noodle Reps/Duration 2 x45 sec Spinal Exercises Wonderboard Body Position Sitting Equipment Ankle Weight- 2.5# Reps/Duration 8 min Comments stationary and forward/ backward movement 1 Details U.E. Horiz AB/AD, shoulder flexion Body Position Standing Water Level Chest Level Comments With core stabilization emphasis, bilateral and unilateral Balance step up/down lg box Body Position Standing Water Level Waist Level Reps/Duration all directions, both LEs leading Comments occasional hh on wall [place] Activities [place] Activities Bicycle,Bicycle Backwards, Cross Country,Running,Hip Abduction/Adduction,Sit Kicks Equipment Lg belt Duration 14 PT-OP-T Assessment and Plan Start: 08/15/19 08:03 Freq: Status: Active Protocol: Document 04/16/20 13:00 SAK (Rec: 04/16/20 13:45 [facility] [id number]) Physical Therapy Assessment Goals Four Impairment activity tolerance Formula Mixer Goal (LTG) Patient to tolerate 45 minute aquatic exercise program without increase in pain or excess fatigue and be independent in aquatic ex program for retirement fitness and pain management. 01/23/20: aquatic exercise on hold due to Covid19, pool still closed, no aquatic therapy 02/27/20: pool still closed LTG Duration 04/22/20 Three Impairment Gait: limited to household, very short distance community (<250') Short Term Goal (STG) Patient able to walk 500' with 4WW before requiring a rest break 01/23/20: required rest break today after 100' with hurry- cane (forgot walker) 02/27/20: able to slowly ambulate 200' before requiring rest STG Duration 03/16/20 Retirement Goal (LTG) Patient able to tolerate 10-15 min of standing and walking to allow her to do brief shopping trips before needing to sit down for rest break LTG Duration 04/22/20 Two Impairment weakness bilateral LE's Short Term Goal (STG) Patient to be independent and compliant with HEP to include use of a video for increased compliance. 01/23/20: has not yet been able due to broken VCR and computer problems 02/27/20: goal met STG Duration 03/16/20 Retirement Goal (LTG) Patient to demonstrate improvement in LE strength by 1 grade throughout to improve her functional mobility and safety 01/23/20: per MMT today, patient weaker in hips and core as well as ankle dorsiflexion 02/27/20: goal progress LTG Duration 04/22/20 One Impairment balance dysfunction with multiple falls, high fall risk category Short Term Goal (STG) No reported falls 01/23/20: no falls since last seen 02/27/20: no reported falls STG Duration goal met Formula Mixer Goal (LTG) Patient to demonstrate a improvement in her score on Tinettti gait and balance assessment from high fall risk to no greater than moderate fall risk 01/23/20: patient continues to be in high risk category 02/27/20: still high risk LTG Duration 04/22/20 Eight Impairment weakness left shoulder Formula Mixer Goal (LTG) Patient left UE strength at least 4+/5 01/23/20: no change in patient UE strength 02/27/20: goal progress LTG Duration 04/22/20 Seven Impairment activity tolerance Retirement Goal (LTG) Patient able to reach overhead and behind her back with minimal to no pain for purposes of ADL's and usual activities 02/27/20: goal progress, with pulleys GH flexion now WFL, unable to achieve actively yet . LTG Duration 04/22/20 Assessment Summary Assessment Treatment time limited today due to late, then needing to leave to be home for work being done. Responded very well to last session with reduction in right hip pain and decreased shoulder pain so today's session focused on manual treatment and iontophoresis. Physical Therapy Plan Frequency and Duration Frequency of Treatment 2x/wk Duration of Treatment 12 wks Plan of Care Start Date 01/23/20 Plan of Care End Date 04/22/20 Therapeutic Interventions Therapeutic Interventions Aquatic Therapy,Balance Training,Gait Training,Home Exercise Program,Manual Therapy,Neuromuscular Re- education,Patient/Caregiver Education,Self-Care/Home Management,Therapeutic Activities,Therapeutic Exercises Next Visit Focus/Plan Next Note Type Treatment Note Next Visit Plan Continue PT to decrease right hip and left shoulder pain, improve strength, function, and safety.
--- NOTE | 2020-04-18 13:09 | PT-OP ANOTE ---
patient cancelled PT appointment due to had a mishap
--- NOTE | 2020-05-02 14:51 | PT-OP ANOTE ---
DNS for today's PT treatment
--- NOTE | 2020-05-28 14:13 | PT.OTN ---
Current Diagnoses Other abnormalities of gait and mobility (04/16/20) Physical Therapy Treatment Note PT-OP-A Visit Information Start: 08/15/19 08:03 Freq: Status: Active Protocol: Document 05/28/20 14:12 [facility] (Rec: 05/28/20 14:13 [facility] [id number]) Out-Patient Physical Therapy Visit Information Visit Information Visit Type Discharge Summary Visit Note Cancelled PT treatment due to incontinence experienced in her car. Requested take a break from PT at this time. Has had cortisone injections in her shoulder and hip. PT-OP-B Current Condition Start: 08/15/19 08:03 Freq: Status: Active Protocol: Document 08/15/19 08:11 SAK (Rec: 08/15/19 08:50 SAK [id number]) Current Condition History of Current Condition Onset Date 10+ years Current Complaints poor balance with multiple falls History of Current Condition Reports long history of gradual decrease in strength and balance with multiple falls, legs give out, UEs not able to hold self up. Poor activity level with limited ability to stand or walk due to weakness and LBP. Has had a hard time getting out of house. Removal of parathyroid gland earlier this year has resulted in increase in weight . 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 Wears orthotics majority of the time. Uses cane and 4WW. Going to be measured for custom compression stockings at [facility] pharmacy. Uses heat for LBP, arthritis Tylenol. Prior Treatments and Tests H/O foot surgery History of aortic valve replacement History of hip replacement History of knee replacement History of knee replacement Status post hysterectomy COPD (chronic obstructive pulmonary disease) GERD (gastroesophageal reflux disease) Hyperlipidemia Hypertension Morbid obesity Neuropathy Treatment Goals Patient/Caregiver Goals Hoping to gain more strength, be able to tolerate standing and walking, better balance. 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 Also felt iontophoresis helpful for her left shoulder. Time limited due to having some work done on her home. PT-OP-H Neuro Start: 08/15/19 08:03 Freq: Status: Active Protocol: Document 08/15/19 08:11 SAK (Rec: 08/15/19 08:50 SAK [id number]) Sensation Evaluation Gross Sensation Gross Sensation Left LE Impaired,Right LE Impaired Sensation Description Paresthesia,Numbness PT-OP-K Range of Motion Start: 08/15/19 08:03 Freq: Status: Active Protocol: Document 08/15/19 08:11 SAK (Rec: 08/15/19 08:50 SAK [id number]) Lumbar Spine Range of Motion Lumbar Spine Active ROM Limitations Pain Hip Goniometric Range of Motion Hip gabby Hip ROM WFL Yes Knee Goniometric Range of Motion Knee ROM Limitations Knee ROM Limitations Pain Comments genu valgus right Ankle and Foot Goniometric Range of Motion Ankle and Foot gabby Dorsiflexion with Knee Flexed 0 PT-OP-M Strength Start: 08/15/19 08:03 Freq: Status: Active Protocol: Document 08/15/19 08:11 SAK (Rec: 08/15/19 08:50 SAK [id number]) Trunk Strength Trunk Manual Muscle Testing Flexion 2- Poor- Extension 2- Poor- Hip Strength Hip Manual Muscle Testing gabby Flexion (L2) 3+ Fair+ Extension (S1) 2 Poor Abduction 2 Poor Adduction 2 Poor External Rotation 2- Poor- Internal Rotation 2- Poor- Knee Strength Knee Manual Muscle Testing gabby Flexion (S2) 4- Good- Extension (L3) 4- Good- Ankle/Foot Strength Ankle and Foot Manual Muscle Testing gabby Dorsiflexion (L4) 3+ Fair+ Plantarflexion (S1) 4- Good- PT-OP-Q Treatments Start: 08/15/19 08:03 Freq: Status: Active Protocol: Document 04/16/20 13:00 SAK (Rec: 04/16/20 13:45 SAK [id number]) Manual Therapy Treatment Soft Tissue Mobilization 2 Body Location right piriformis, IT band Mobilization Type Myofascial Release,Rolling, Strumming,Sustained Pressure Intensity/Depth Moderate Body Position Sidelying 1 Body Location upper traps, periscapular region, RC, biceps left. Mobilization Type Myofascial Release,Rolling, Strumming,Sustained Pressure Intensity/Depth Moderate Body Position Sidelying PT-OP-R Modalities Start: 08/15/19 08:03 Freq: Status: Active Protocol: Document 04/16/20 13:00 SAK (Rec: 04/16/20 16:54 SAK [id number]) Iontophoresis Treatment Left Shoulder Treatment Medication Dexamethasone (-) Medication Amount (mL) (ml) 4 Medication Dosage 1 PT-OP-S Aquatic Treatment Start: 08/15/19 08:03 Freq: Status: Active Protocol: Document 10/25/19 10:15 LJ (Rec: 10/25/19 13:20 LJ [id number]) Aquatics Treatment Pool Entry/Exit Pool Entry/Exit Method Stairs Assistance Standby Assistance Water Walking shallow water jogging Water Level Chest Level Level of Assistance Standby Assistance Comments 2 laps Lunge Walk Water Level Chest Level Level of Assistance Standby Assistance Superior March Water Level Chest Level Level of Assistance Verbal Cues barrell walk Water Level Chest Level Level of Assistance Standby Assistance,Verbal Cues march Water Level Chest Level Level of Assistance Standby Assistance,Verbal Cues Backwards Water Level Chest Level Level of Assistance Standby Assistance,Verbal Cues Sideways Water Level Chest Level Level of Assistance Standby Assistance Forwards Water Level Chest Level Level of Assistance Standby Assistance Lower Extremity Stretches Quads Body Position Standing Water Level Chest Level Equipment Small Noodle Reps/Duration 2 x45 sec HS Body Position Standing Water Level Chest Level Equipment Small Noodle Reps/Duration 2 x45 sec Spinal Exercises Wonderboard Body Position Sitting Equipment Ankle Weight- 2.5# Reps/Duration 8 min Comments stationary and forward/ backward movement 1 Details U.E. Horiz AB/AD, shoulder flexion Body Position Standing Water Level Chest Level Comments With core stabilization emphasis, bilateral and unilateral Balance step up/down lg box Body Position Standing Water Level Waist Level Reps/Duration all directions, both LEs leading Comments occasional hh on wall Rindge Activities Rindge Activities Bicycle,Bicycle Backwards, Cross Country,Running,Hip Abduction/Adduction,Sit Kicks Equipment Lg belt Duration 14 PT-OP-T Assessment and Plan Start: 08/15/19 08:03 Freq: Status: Active Protocol: Document 05/28/20 14:12 YESSENIA (Rec: 05/28/20 14:13 YESSENIA [id number]) Physical Therapy Plan Discharge Physical Therapy Discharge Reasons Patient Request
--- NOTE | 2020-07-18 11:48 | PT.OPDS ---
Current Diagnoses Other abnormalities of gait and mobility (04/16/20) Visit Care Team Role Provider Type Rosy Lowery PA-C Attending Provider Physician Family Provider Primary Care Provider Specialty: Internal Medicine Address: [address] [place] [address], [id number] Email: [email or web address] Visit Number Visit Number [id number] Discharge Summary PT-OP-B Current Condition Start: 08/15/19 08:03 Freq: Status: Active Protocol: Document 08/15/19 08:11 SAK (Rec: 08/15/19 08:50 SAK [id number]) Current Condition History of Current Condition Onset Date 10+ years Current Complaints poor balance with multiple falls History of Current Condition Reports long history of gradual decrease in strength and balance with multiple falls, legs give out, UEs not able to hold self up. Poor activity level with limited ability to stand or walk due to weakness and LBP. Has had a hard time getting out of house. Removal of parathyroid gland earlier this year has resulted in increase in weight . 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 Wears orthotics majority of the time. Uses cane and 4WW. Going to be measured for custom compression stockings at [facility] pharmacy. Uses heat for LBP, arthritis Tylenol. Prior Treatments and Tests H/O foot surgery History of aortic valve replacement History of hip replacement History of knee replacement History of knee replacement Status post hysterectomy COPD (chronic obstructive pulmonary disease) GERD (gastroesophageal reflux disease) Hyperlipidemia Hypertension Morbid obesity Neuropathy Treatment Goals Patient/Caregiver Goals Hoping to gain more strength, be able to tolerate standing and walking, better balance. 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 Also felt iontophoresis helpful for her left shoulder. Time limited due to having some work done on her home. PT-OP-H Neuro Start: 08/15/19 08:03 Freq: Status: Active Protocol: Document 08/15/19 08:11 SAK (Rec: 08/15/19 08:50 SAK [id number]) Sensation Evaluation Gross Sensation Gross Sensation Left LE Impaired,Right LE Impaired Sensation Description Paresthesia,Numbness PT-OP-K Range of Motion Start: 08/15/19 08:03 Freq: Status: Active Protocol: Document 08/15/19 08:11 SAK (Rec: 08/15/19 08:50 [facility] [id number]) Lumbar Spine Range of Motion Lumbar Spine Active ROM Limitations Pain Hip Goniometric Range of Motion Hip gabby Hip ROM WFL Yes Knee Goniometric Range of Motion Knee ROM Limitations Knee ROM Limitations Pain Comments genu valgus right Ankle and Foot Goniometric Range of Motion Ankle and Foot gabby Dorsiflexion with Knee Flexed 0 PT-OP-M Strength Start: 08/15/19 08:03 Freq: Status: Active Protocol: Document 08/15/19 08:11 SAK (Rec: 08/15/19 08:50 [facility] [id number]) Trunk Strength Trunk Manual Muscle Testing Flexion 2- Poor- Extension 2- Poor- Hip Strength Hip Manual Muscle Testing gabby Flexion (L2) 3+ Fair+ Extension (S1) 2 Poor Abduction 2 Poor Adduction 2 Poor External Rotation 2- Poor- Internal Rotation 2- Poor- Knee Strength Knee Manual Muscle Testing gabby Flexion (S2) 4- Good- Extension (L3) 4- Good- Ankle/Foot Strength Ankle and Foot Manual Muscle Testing gabby Dorsiflexion (L4) 3+ Fair+ Plantarflexion (S1) 4- Good- PT-OP-T Assessment and Plan Start: 08/15/19 08:03 Freq: Status: Active Protocol: Document 05/28/20 14:12 YESSENIA (Rec: 05/28/20 14:13 [facility] [id number]) Physical Therapy Plan Discharge Physical Therapy Discharge Reasons Patient Request
== END 2020-08-02 14:12 ==
LOC: PHYS 13:00
PROVIDERS: Family Provider Student in an Organized Health Care Education/Training Program; PCP Student in an Organized Health Care Education/Training Program; Visit Provider Student in an Organized Health Care Education/Training Program
DX: R26.89 Other abnormalities of gait and mobility (principal)
CPT/HCPCS: 97010; 97035; 97110; 97112; 97113; 97140; 97162; 97535

== ENCOUNTER → 2020-04-17 08:31 | Outpatient (CLI) | payer MEDICARE, OTHER, SELFPAY ==
[2018-05-09 04:15] VITALS: BMI 43.5
[2020-04-17 10:06] LABS: Add Manual Diff / Slide Review NO; Basophils Absolute Auto 100 /uL (0-100); Eosinophils Absolute Auto 300 /uL (0-450); Eosinophils Percent Auto 4.5 % (2-4); Hematocrit 38.3 % (36-46); Hemoglobin 12.2 g/dL (12.0-16.0); Lymphocytes Absolute Auto 2300 /uL (1100-4500); Lymphocytes Percent Auto 32.8 % (25-40); Mean Corpuscular HGB Conc 31.8 % (30-36); Mean Corpuscular Hemoglobin 28.1 PG (26-34); Mean Corpuscular Volume 88.4 fL (80-100); Monocytes Absolute Auto 1000 /uL (0-900); Monocytes Percent Auto 14.6 % (3-14); Neutrophils Absolute Auto 3200 /uL (1500-7000); Neutrophils Percent Auto 47.1 % (50-75); Platelet Count 301 X10^3/uL (150-400); Red Blood Cell Count 4.33 X10^6/uL (4.0-5.2); Red Cell Distribution Width 15.7 % (11.6-14.8); White Blood Cell Count 6.9 X10^3/uL (4.5-11.0)
[2020-04-17 10:23] LABS: Alanine Aminotransferase 15 IU/L (<35); Albumin 4.1 g/dL (3.5-5.0); Albumin Globulin Ratio 1.8 (1.0-2.8); Alkaline Phosphatase 47 U/L (38-126); Aspartate Aminotransferase 23 IU/L (14-36); BUN Creatinine Ratio 20.9 (6-22); Bilirubin Total 0.6 mg/dL (0.2-1.3); Blood Urea Nitrogen 24 mg/dL (7-17); Calcium 9.6 mg/dL (8.4-10.2); Carbon Dioxide 30 mmol/L (22-32); Chloride 102 mmol/L (98-107); Cholesterol 168 mg/dL (140-199); Estimated Glomerular Filt Rate 45.2 mL/min (>60); Globulin 2.3 g/dL (1.7-4.1); Glucose 85 mg/dL (80-110); HDL Cholesterol 81 mg/dL (40-60); HEMOLYSIS < 15 (0-50); LDL Cholesterol Calculated 69 mg/dL (<100); Potassium 5.2 mmol/L (3.4-5.1); Sodium 139 mmol/L (137-145); Total Protein 6.4 g/dL (6.3-8.2); Triglycerides 90 mg/dL (35-150)
== END ==
PROVIDERS: Family Provider Student in an Organized Health Care Education/Training Program; PCP Student in an Organized Health Care Education/Training Program; Referring Provider Student in an Organized Health Care Education/Training Program; Visit Provider Student in an Organized Health Care Education/Training Program
DX: I10 Essential (primary) hypertension (principal); E78.5 Hyperlipidemia, unspecified
CPT/HCPCS: 36415; 80053; 80061; 85025

== ENCOUNTER → 2020-06-14 14:15 | Outpatient (CLI) | payer MEDICARE, OTHER, SELFPAY ==
[2018-05-09 04:15] VITALS: BMI 43.5
--- NOTE | 2020-06-14 | DI.RAD.S_ITS ---
PROCEDURE: XR HIP W PEL IF DONE RT 2V INDICATIONS: right hip pain TECHNIQUE: 2 view(s) of the hip acquired. COMPARISON: [facility], CR, XR PELVIS 1 OR 2 VIEWS, 11/01/2018, 16:00. FINDINGS: Bones: Patient is status post left hip arthroplasty, with hardware components in expected positions. The hip joint appears congruent. The visualized bony structures appear intact. Moderate narrowing of the axial aspect of the right hip joint with periarticular osteophyte formation. Bones are osteopenic. Soft tissues: Overlying postoperative changes are noted. No suspicious soft tissue densities. Neural stimulator pulse generator and catheter noted. IMPRESSION: 1. Expected appearance and alignment of left hip arthroplasty. 2. Moderate right hip joint degeneration. Dictated by: Wilbert RAMOS Interpreted: Carrie Chavez MD on 06/14/2020 at 15:12 Approved by: Carrie Chavez M.D. on 06/14/2020 at 15:32
== END ==
PROVIDERS: Family Provider Student in an Organized Health Care Education/Training Program; PCP Student in an Organized Health Care Education/Training Program; Referring Provider Physician Assistant; Visit Provider Physician Assistant
DX: M25.551 Pain in right hip (principal); M16.11 Unilateral primary osteoarthritis, right hip; Z96.642 Presence of left artificial hip joint
CPT/HCPCS: 73502